=== PATIENT | female | born 1950 | race Caucasian/White ===

== ENCOUNTER 2017-08-14 08:23 | Inpatient (IN) | payer OTHER, MEDICARE ==
[~2017-08-14] VITALS: Ht 152.4 cm; Wt 116.2 kg
[~2017-08-14 08:23] MED LIST: NEURONTIN300 MG PO; TYLENOL #31 TAB PO; VICODIN5-300 PO
--- NOTE | 2017-08-14 08:52 | ED GI/GU/ABDOMINAL COMPLAINT ---
History of Present Illness General Chief Complaint: Abdominal Pain/Flank Pain Stated Complaint: ABD PAIN RADIATING TO BACK Source: patient, old records Exam Limitations: no limitations Vital Signs & Intake/Output Vital Signs & Intake/Output Vital Signs Date Time Temp Pulse Resp B/P B/P Pulse O2 O2 Flow FiO2 Mean Ox Delivery Rate 08/14 1541 98.6 68 18 148/65 93 Room Air 08/14 1437 98.0 69 20 163/75 97 Room Air 08/14 1242 97.8 68 18 150/65 98 Room Air 08/14 1019 98.0 66 18 165/79 98 Room Air 08/14 0828 97.2 73 18 153/90 97 Room Air Allergies Coded Allergies: NO KNOWN ALLERGIES (01/09/12) Reconcile Medications Ascorbic Acid (Vitamin C) 500 MG TABLET 1 TAB PO DAILY SUPPLEMENT (Reported) Aspirin (Ecotrin*) 81 MG TABLET.DR 1 TAB PO DAILY HEART/BLOOD (Reported) Atorvastatin Calcium 10 MG TABLET 0.5 TAB PO DAILY CHOLESTEROL (Reported) Calcium Carbonate/Vitamin D3 (Calcium 500 + D Tablet) (Unknown Strength) TABLET (Unknown Dose) PO DAILY SUPPLEMENT (Reported) Carvedilol 12.5 MG TABLET 1 TAB PO BID HEART/BP (Reported) Furosemide 40 MG TABLET 1 TAB PO BID DIURETIC (Reported) Levothyroxine Sodium (Synthroid) 50 MCG TABLET 1 TAB PO DAILY THYROID ( Reported) Multiple Vitamin (Multivitamins) 1 EACH TABLET 1 TAB PO DAILY SUPPLEMENT ( Reported) Naproxen 375 MG TABLET 1.5 TAB PO DAILY PAIN/INFLAMMATION (Reported) with food [place]-3S/Dha/Epa/Fish Oil (Fish Oil 1,000 MG Softgel) 300 MG (250 MG-50 MG)-1, 000 MG CAPSULE 1 SGL PO DAILY SUPPLEMENT (Reported) Potassium Chloride 20 MEQ TAB.ER.PRT 1 TAB PO BID SUPPLEMENT (Reported) Triage Note: REPORTS SEVERE ABDOMINAL PAIN THAT HAS BEEN WORSENING SINCE THIS PAST TUESDAY. SHE REPORTED THE PAIN BEGINGS ON HER RIGHT FLANK RADIATING TO HER RIGHT ABD/GROIN AREA. DENIED UROLOGICAL SYMPTOMS. Triage Nurses Notes Reviewed? yes ? n Is pt currently ? No Onset: Abrupt Duration: day(s): (3), constant, waxing and waning Timing: recent history Quality/Severity: aching, moderate, sharpness Severity Numbers: 8 Location: left upper quadrant, right upper quadrant Radiation: back No Modifying Factors: none Associated Symptoms: denies HPI: 67-year-old female history of hypertension high cholesterol hypothyroid presents to the ER for evaluation complaining of constant however coming in waves severe bilateral upper quadrant abdominal pain radiating into her back has been going on for the past 3 days while she was on vacation in [place]. Symptoms came on after eating a tuna sandwich. She states she was nauseous and vomited once. She's been having normal bowel movements. She was taking zoni-vhy-bayhcra medications without improvement. Contrary to triage note the pain is bilateral and is not right-sided. She denies urgency frequency dysuria hematuria. No chest pain no shortness of breath Past History Travel History Traveled to [place] past 21 day No Medical History Any Pertinent Medical History? 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 No Review of Systems Review of Systems Constitutional: Reports: see HPI. Comments Review of systems: See HPI, All other systems negative. Constitutional, no chills no fever, HEENT: no sore throat no congestion Cardiovascular: No chest pain , no palpitation Skin: no rashes, no change in skin Respiratory: No dyspnea no cough no sputum GI: nausea vomiting, no diarrhea, no bloating/constipation : No dysuria No hematuria, no frequency Muscle skeletal: No joint pain, no back pain Neurologic: , no headache Heme/endocrine: No bruising Immunology: No lymphadenopathy Physical Exam Physical Exam General Appearance: well developed/nourished, no apparent distress, alert Gastrointestinal: normal bowel sounds, soft, non-tender Comments: Well-developed well-nourished person in no acute distress HEENT: Normal EENT exam; PERRL, EOMI, HEAD is atraumatic. moist mucous membranes. Neck: Supple,normal range of motion Back: Nontender, no CVA tenderness. Full range of motion Cardiovascular: Regular rate and rhythms no murmurs rubs or gallops, normal JVP Respiratory: Chest nontender.There were no bony deformities, no asymmetry. No respiratory distress. Patient speaking in full complete sentences. Breath sounds clear to auscultation bilaterally: NO W/R/R Abdomen: Soft,obese, nontender, negative Jaimes's sign nondistended, no appreciable organomegaly. Normal bowel sounds. No rebound/guarding, No appreciable enlargement of the abdominal aorta, No ascites. Extremity: No edema, full range of motion of extremities Neuro: Alert oriented x3, motor sensory normal, There were no obvious focal neurologic abnormalities. Skin: No appreciable rash on exposed skin, skin is warm and dry. no jaundice,no diaphoresis Psych: Mood and affect is normal, memory and judgment is normal. Core Measures ACS in differential dx? Yes Sepsis Present: No Sepsis Focused Exam Completed? No Progress Differential Diagnosis: appendicitis, biliary colic, bowel obstruction, colon cancer, cholecystitis (/CHOLANGITIS), diverticulitis, gastritis, hepatitis, hernia, inflamm bowel dis, kidney stone, pancreatitis, peptic ulcer, PUD/GERD, perforated viscous Plan of Care: Orders Procedure Date/time Status CBC WITHOUT DIFFERENTIAL 08/15 0600 Active BASIC ELECTROLYTES PLUS BUN&CR 08/15 0600 Active ALKALINE PHOSPHATASE 08/15 0600 Active Nothing by Mouth 08/14 D Active Pathway - chart 08/14 1241 Active Patient Data 08/14 1227 Active Misc Message 08/14 1225 Active ED Holding Orders 08/14 1225 Active Admit to inpatient 08/14 1225 Active Vital Signs 08/14 1225 Active Code Status 08/14 1225 Active EKG 08/14 1213 Active Add-on Test (ER Only) 08/14 1006 Active Intake & Output 08/14 0906 Active LIPID PANEL 08/14 0903 Complete TROPONIN LEVEL 08/14 0859 Complete LIPASE 08/14 0859 Complete COMPREHENSIVE METABOLIC PANEL 08/14 0859 Complete CBC WITHOUT DIFFERENTIAL 08/14 0859 Complete URINALYSIS 08/14 0830 Complete House Staff 08/14 UNK Active VTE Mechanical Prophylaxis 08/14 UNK Active Current Medications Sig/Yoana Start time Last Medication Dose Stop Time Status Admin Enoxaparin Sodium 40 MG DAILY 08/15 0900 AC (Lovenox) Hydromorphone HCl 2 MG Q4P PRN 08/14 1300 AC 08/14 (Dilaudid) 1436 Ketorolac 15 MG Q6-PRN PRN 08/14 1300 AC Tromethamine 08/17 1257 (Toradol) Ondansetron HCl 4 MG Q6P PRN 08/14 1300 AC (Zofran) Lactated Ringer's 1,000 ML .Q4H 08/14 1245 AC 08/14 (Lactated Ringers) 1245 Sodium Chloride 1,000 ML ONCE ONE 08/14 1100 AC 08/14 (Normal Saline 0.9%) 08/14 1739 1116 Laboratory Tests 08/14/17 0903: Anion Gap 12, Estimated GFR > 60, BUN/Creatinine Ratio 28.9 H, Glucose 105 H, Calcium 9.1, Total Bilirubin 1.3, AST 161 H, ALT 137 H, Alkaline Phosphatase 124, Troponin I < 0.01, Total Protein 7.0, Albumin 3.8, Globulin 3.2, Albumin/ Globulin Ratio 1.2, Triglycerides 44, Cholesterol 145, LDL Cholesterol, Calc 61 L, HDL Cholesterol 76 H, Cholesterol/HDL Ratio 2, Lipase > 67677 H, CBC w Diff NO MAN DIFF REQ, RBC 4.80, MCV 82.2, MCH 26.7 L, MCHC 32.5 L, RDW 17.3 H, MPV 9.2, Gran % 74.4, Lymphocytes % 16.8 L, Monocytes % 7.0, Eosinophils % 1.5, Basophils % 0.3, Absolute Granulocytes 7.5 H, Absolute Lymphocytes 1.7, Absolute Monocytes 0.7 H, Absolute Eosinophils 0.1, Absolute Basophils 0 08/14/17 0840: Urinalysis LIGHT H, Urine Color YEL, Urine Clarity HAZY H, Urine pH 5.5, Ur Specific Mcalister >= 1.030, Urine Protein TRACE H, Urine Ketones NEG, Urine Nitrite NEG, Urine Bilirubin NEG@ICTO, Urine Urobilinogen 0.2, Ur Leukocyte Esterase MOD H, Ur Microscopic SEDIMENT EXAMINED, Urine RBC 1-3, Urine WBC 5-10 H, Ur Epithelial Cells MOD H, Urine Bacteria MOD H, Granular Casts RARE H, Urine Hemoglobin TRACE-INTACT, Urine Glucose NEG labs ordered, old records reviewed, pt is declininganything for pain when offered. ct ordered Discussed with patient her CAT scan results she is stating that the pain is coming back Toradol 30 IV IV fluids Zofran 4 IV ordered ultrasound ordered case discussed with Dr. Spangler who agrees with plan 1200 repeat evaluation patient reports improvement in her symptoms pending ultrasound results 1218 discussed with the patient her ultrasound findings and plan of care, needfor admission which they are in agreement with. pain is controlled at this time case discussed with Dr. trent will admit. Diagnostic Imaging: Viewed by Me: CT Scan. Discussed w/RAD: CT Scan. Radiology Impression: PATIENT: ADELINE LOPEZ PRESENT AGE: 67 PATIENT ACCOUNT NO: [id number] : 50 LOCATION: [facility] ORDERING PHYSICIAN: Thierry KAYE SERVICE DATE: 08/14/17 EXAM TYPE: US - US- LIMITED ABDOMEN EXAMINATION: US ABDOMEN LIMITED CLINICAL INFORMATION: Right upper quadrant epigastric abdominal pain. COMPARISON: CT abdomen pelvis 2017 TECHNIQUE: Real-time imaging of the right upper quadrant abdominal viscera. Study limited due to bowel gas. FINDINGS: PANCREAS: Obscured by bowel gas LIVER: The liver is poorly evaluated due to body habitus. No obvious dilatation of intrahepatic bile ducts. GALLBLADDER: The gallbladder is mildly distended measuring approximately 3.8 cm in AP dimension. No gallbladder wall thickening or pericholecystic fluid. No cholelithiasis. COMMON BILE DUCT: Borderline enlarged in caliber measuring 0.7 cm in diameter. RIGHT KIDNEY: Normal. No hydronephrosis. No renal calculi or focal parenchymal lesions. The kidney measures 11.4 cm in maximum dimension. FREE FLUID: None. IMPRESSION: Technically limited examination. The gallbladder is mildly distended without focal wall thickening, pericholecystic fluid or cholelithiasis. Common duct is at the upper limits of normal in size. DICTATED BY: Pedrito Finn MD DATE/TIME DICTATED:1108 BINDERY MANAGER:LAUREN DATE/TIME TRANSCRIBED:08/14/171108 CONFIDENTIAL, DO NOT COPY WITHOUT APPROPRIATE AUTHORIZATION. <Electronically signed in Other Vendor System> SIGNED BY: Pedrito Finn MD 08/14/17 1213, PATIENT: ADELINE LOPEZ PRESENT AGE: 67 PATIENT ACCOUNT NO: [id number] : 50 LOCATION: ER ORDERING PHYSICIAN: Thierry KAYE SERVICE DATE: 08/14/1759 EXAM TYPE: CAT - CT ABD & PELVIS W/O IV CONTRAS EXAMINATION: CT ABDOMEN AND PELVIS WITHOUT CONTRAST CLINICAL INFORMATION : Upper quadrant pain. Nausea, vomiting. COMPARISON: CT chest with contrast 08/2011. TECHNIQUE: Multidetector volumetric imaging was performed from the superior aspect of the liver through the pubic symphysis. Sagittal and coronal reformatted images were obtained on the technologist's workstation. No oral or intravenous contrast. DLP: 1217 mGy-cm FINDINGS: LUNG BASES: The visualized lung bases are unremarkable. LIVER, GALLBLADDER, AND BILIARY TREE: The liver is normal in size, shape, and attenuation. No focal hepatic lesion or biliary ductal dilatation is present. The gallbladder has small layering hyperdensity which may represent fine gravel like calculi or hyperdense sludge. There is no gallbladder wall thickening. Common duct is unremarkable. PANCREAS: There are subtle inflammatory changes in the retroperitoneum around the pancreas with early effusions in the anterior pararenal spaces on both the left and right sides. The pancreatic head appears mildly enlarged. The body and tail are normal in caliber. Parenchymal attenuation is uniform. There is no visible pancreatic ductal distention or loculated fluid. SPLEEN: Unremarkable. ADRENAL GLANDS: Unremarkable. KIDNEYS AND URETERS: The kidneys are normal in size, shape, and attenuation. No hydronephrosis, hydroureter, or calculi seen. No perinephric stranding. BLADDER: Unremarkable. GASTROINTESTINAL TRACT: No bowel obstruction or inflammatory changes in the bowel or mesentery. The appendix is normal. No ascites. ABDOMINAL WALL: No significant hernia is appreciated. LYMPH NODES: Normal. VASCULAR: Unremarkable. PELVIC VISCERA: Unremarkable. OSSEOUS STRUCTURES : Multilevel degenerative changes lower thoracic and lumbosacral spine. Prior lumbosacral fusion with bilateral pedicle screws and rods L4, L5, S1. There is grade 1-2 spondylolisthesis at lumbosacral junction. No paraspinal soft tissue swelling. IMPRESSION: 1. Inflammatory changes in region of pancreas with early retroperitoneal effusions. Findings consistent with pancreatitis. No loculated fluid. 2. Fine gravel like calculi versus hyperdense sludge in dependent gallbladder. No gallbladder wall thickening or biliary ductal dilatation. DICTATED BY: Bobby Osborne MD DATE/TIME DICTATED:08/14/17942 BINDERY MANAGER:LAUREN DATE/TIME TRANSCRIBED:08/14/17942 CONFIDENTIAL, DO NOT COPY WITHOUT APPROPRIATE AUTHORIZATION. <Electronically signed in Other Vendor System> SIGNED BY: Bobby Osborne MD 08/14/17 0957 Initial ED EKG: normal sinus rhythm, nonspecific ST T wave chg Prior EKG: unchanged Departure Departure Time of Disposition: 1217 Disposition: STILL A PATIENT Condition: Stable Clinical Impression Primary Impression: Pancreatitis Referrals: Yumi Morris APRN (PCP/Family) Departure Forms: Customer Survey General Discharge Information Admission Note Spoke With: Quincy Trent MD Documentation of Exam: Documentation of any treatments & extenuating circumstances including Concerns Regarding Discharge (functional status, medication knowledge or non-compliance, living conditions, etc.) that warrant an admission rather than observation: IV fluids gentle hydration trend electrolyte trend lipase premature discharge. Medically harmful, pain control
[2017-08-14 09:13] LABS: ABSOLUTE BASOPHIL COUNT 0 /CUMM (0.0-0.2); ABSOLUTE EOSINOPHIL COUNT 0.1 /CUMM (0.0-0.7); ABSOLUTE GRANULOCYTE CT 7.5 /CUMM (1.4-6.5); ABSOLUTE LYMPH COUNT 1.7 /CUMM (1.2-3.4); ABSOLUTE MONOCYTE COUNT 0.7 /CUMM (0.10-0.60); BASOPHIL % 0.3 % (0.0-2.0); EOSINOPHIL % 1.5 % (0-5); GRANULOCYTE % 74.4 % (42.2-75.2); HEMATOCRIT 39.4 % (37-47); MEAN CORPUSCULAR HGB 26.7 PG (27.0-31.0); MEAN CORPUSCULAR HGB CONC 32.5 G/DL (33.0-37.0); MEAN CORPUSCULAR VOLUME 82.2 FL (81.0-99.0); MEAN PLATELET VOLUME 9.2 FL (7.4-10.4); PLATELET COUNT 236 /CUMM (130-400); RBC DISTRIBUTION WIDTH 17.3 % (11.5-14.5); WHITE BLOOD CELL COUNT 10.1 /CUMM (4.8-10.8)
--- NOTE | 2017-08-14 09:57 | CT SCAN REPORT ---
EXAMINATION: CT ABDOMEN AND PELVIS WITHOUT CONTRAST CLINICAL INFORMATION: Upper quadrant pain. Nausea, vomiting. COMPARISON: CT chest with contrast 01/05/2012. TECHNIQUE: Multidetector volumetric imaging was performed from the superior aspect of the liver through the pubic symphysis. Sagittal and coronal reformatted images were obtained on the technologist's workstation. No oral or intravenous contrast. DLP: 1217 mGy-cm FINDINGS: LUNG BASES: The visualized lung bases are unremarkable. LIVER, GALLBLADDER, AND BILIARY TREE: The liver is normal in size, shape, and attenuation. No focal hepatic lesion or biliary ductal dilatation is present. The gallbladder has small layering hyperdensity which may represent fine gravel like calculi or hyperdense sludge. There is no gallbladder wall thickening. Common duct is unremarkable. PANCREAS: There are subtle inflammatory changes in the retroperitoneum around the pancreas with early effusions in the anterior pararenal spaces on both the left and right sides. The pancreatic head appears mildly enlarged. The body and tail are normal in caliber. Parenchymal attenuation is uniform. There is no visible pancreatic ductal distention or loculated fluid. SPLEEN: Unremarkable. ADRENAL GLANDS: Unremarkable. KIDNEYS AND URETERS: The kidneys are normal in size, shape, and attenuation. No hydronephrosis, hydroureter, or calculi seen. No perinephric stranding. BLADDER: Unremarkable. GASTROINTESTINAL TRACT: No bowel obstruction or inflammatory changes in the bowel or mesentery. The appendix is normal. No ascites. ABDOMINAL WALL: No significant hernia is appreciated. LYMPH NODES: Normal. VASCULAR: Unremarkable. PELVIC VISCERA: Unremarkable. OSSEOUS STRUCTURES: Multilevel degenerative changes lower thoracic and lumbosacral spine. Prior lumbosacral fusion with bilateral pedicle screws and rods L4, L5, S1. There is grade 1-2 spondylolisthesis at lumbosacral junction. No paraspinal soft tissue swelling. IMPRESSION: 1. Inflammatory changes in region of pancreas with early retroperitoneal effusions. Findings consistent with pancreatitis. No loculated fluid. 2. Fine gravel like calculi versus hyperdense sludge in dependent gallbladder. No gallbladder wall thickening or biliary ductal dilatation.
[2017-08-14] MEDS ORDERED: POTASSIUM CHLO20 ME2 PO (12:04)
[2017-08-14] MEDS ORDERED: ATORVASTATIN CA10 M1 PO (12:05)
[2017-08-14] MEDS ORDERED: CARVEDILOL12.5 M1 PO (12:05)
[2017-08-14] MEDS ORDERED: SYNTHROID50 MCG PO (12:05)
[2017-08-14] MEDS ORDERED: FUROSEMIDE40 M1 PO (12:07)
[2017-08-14] MEDS ORDERED: ASPIRIN EC81 M1 PO (12:07)
[2017-08-14] MEDS ORDERED: NAPROXEN375 M2 PO (12:08)
[2017-08-14] MEDS ORDERED: CALCIUM 500 +1 EAC5 PO (12:09)
[2017-08-14] MEDS ORDERED: FISH OIL 1,0001 EAC5 PO (12:09)
[2017-08-14] MEDS ORDERED: MULTIVITAMINS1 EAC9 PO (12:09)
[2017-08-14] MEDS ORDERED: VITAMIN C500 M8 PO (12:09)
--- NOTE | 2017-08-14 12:13 | ULTRASOUND REPORT ---
EXAMINATION: US ABDOMEN LIMITED CLINICAL INFORMATION: Right upper quadrant epigastric abdominal pain. COMPARISON: CT abdomen pelvis 08/14/2017 TECHNIQUE: Real-time imaging of the right upper quadrant abdominal viscera. Study limited due to bowel gas. FINDINGS: PANCREAS: Obscured by bowel gas LIVER: The liver is poorly evaluated due to body habitus. No obvious dilatation of intrahepatic bile ducts. GALLBLADDER: The gallbladder is mildly distended measuring approximately 3.8 cm in AP dimension. No gallbladder wall thickening or pericholecystic fluid. No cholelithiasis. COMMON BILE DUCT: Borderline enlarged in caliber measuring 0.7 cm in diameter. RIGHT KIDNEY: Normal. No hydronephrosis. No renal calculi or focal parenchymal lesions. The kidney measures 11.4 cm in maximum dimension. FREE FLUID: None. IMPRESSION: Technically limited examination. The gallbladder is mildly distended without focal wall thickening, pericholecystic fluid or cholelithiasis. Common duct is at the upper limits of normal in size.
--- NOTE | 2017-08-14 12:38 | History & Physical ---
Ed AYERS,[facility] 08/14/17 1237: General Information and HPI MD Statement: I have seen and personally examined ADELINE LOPEZ and documented this H&P. The patient is a 67 year old F who presented with a patient stated chief complaint of abdominal pain. Source of Information: patient Exam Limitations: no limitations History of Present Illness: This is a 67-year-old lady with a past medical history of hyperlipidemia presents with 3 day onset of progressively worsening abdominal pain. Patient states that her pain started on right upper quadrant and epigastric area, and them radiated to her back on the right side. She denies any similar pain in the past. Associated symptoms include nausea and one episode of vomiting even though her reports he heard the patient vomit more than once. Denied any constipation, diarrhea or bloody stools, fever or chills. Patient reports her symptoms started after having a tuna sandwich. She denies any regular use of etoh and reports she rarely uses etoh and when she does, it is very sparingly. No report of new medication. She states that her hyperlipidemia has been well controlled by atorvastatin. Patient reports that her friend gave her ibuprofen which after taking she experienced moderate relief. Allergies/Medications Allergies: Coded Allergies: NO KNOWN ALLERGIES (01/09/12) Home Med list Ascorbic Acid (Vitamin C) 500 MG TABLET 1 TAB PO DAILY SUPPLEMENT (Reported) Aspirin (Ecotrin*) 81 MG TABLET.DR 1 TAB PO DAILY HEART/BLOOD (Reported) Atorvastatin Calcium 10 MG TABLET 0.5 TAB PO DAILY CHOLESTEROL (Reported) Calcium Carbonate/Vitamin D3 (Calcium 500 + D Tablet) (Unknown Strength) TABLET (Unknown Dose) PO DAILY SUPPLEMENT (Reported) Carvedilol 12.5 MG TABLET 1 TAB PO BID HEART/BP (Reported) Furosemide 40 MG TABLET 1 TAB PO BID DIURETIC (Reported) Levothyroxine Sodium (Synthroid) 50 MCG TABLET 1 TAB PO DAILY THYROID ( Reported) Multiple Vitamin (Multivitamins) 1 EACH TABLET 1 TAB PO DAILY SUPPLEMENT ( Reported) Naproxen 375 MG TABLET 1.5 TAB PO DAILY PAIN/INFLAMMATION (Reported) with food [place]-3S/Dha/Epa/Fish Oil (Fish Oil 1,000 MG Softgel) 300 MG (250 MG-50 MG)-1, 000 MG CAPSULE 1 SGL PO DAILY SUPPLEMENT (Reported) Potassium Chloride 20 MEQ TAB.ER.PRT 1 TAB PO BID SUPPLEMENT (Reported) Past History Travel History Traveled to [place] past 21 day No Medical History Neurological: NONE EENT: NONE Cardiovascular: hypertension, HIGH CHOLESTEROL Respiratory: NONE Gastrointestinal: NONE Hepatic: NONE Renal: NONE Musculoskeletal: NONE Psychiatric: NONE Endocrine: hypothyroidism Blood Disorders: NONE Cancer(s): NONE 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 EENTM: Reports: no symptoms. Cardiovascular: Reports: no symptoms. Respiratory: Reports: no symptoms. GI: Reports: abdominal pain, vomiting. Genitourinary: Reports: no symptoms. Musculoskeletal: Reports: no symptoms. Skin: Reports: no symptoms. Neurological/Psychological: Reports: no symptoms. Hematologic/Endocrine: Reports: no symptoms. Immunologic/Allergic: Reports: no symptoms. All Other Systems: Reviewed and Negative Exam & Diagnostic Data Last 24 Hrs of Vital Signs/I&O Vital Signs Date Time Temp Pulse Resp B/P B/P Pulse O2 O2 Flow FiO2 Mean Ox Delivery Rate 08/14 1600 98.2 68 20 142/88 94 Room Air 08/14 1541 98.6 68 18 148/65 93 Room Air 08/14 1437 98.0 69 20 163/75 97 Room Air 08/14 1242 97.8 68 18 150/65 98 Room Air 08/14 1019 98.0 66 18 165/79 98 Room Air 08/14 0828 97.2 73 18 153/90 97 Room Air Intake & Output 08/14 1600 08/14 0800 08/14 0000 Intake Total 1000 Output Total Balance 1000 Intake, IV 1000 Patient 117.934 kg Weight Weight Reported by Patient Measurement Method Physical Exam General Appearance Alert, Oriented X3, Cooperative Skin No Rashes, No Breakdown, No Significant Lesion Skin Temp/Moisture Exam: Warm/Dry Sepsis Skin Exam (color): Normal for Ethnicity HEENT Atraumatic, PERRLA, EOMI, Mucous Membr. moist/pink Neck Supple, No JVD Lymphatic Cervical nl Cardiovascular Regular Rate, Normal S1, Normal S2 Lungs Clear to Auscultation, Normal Air Movement Abdomen mild tenderness on deep palpation of epigastric and upper right quadrant. no guarding/rigidity or rebounbd tenderness Neurological Normal Gait, Normal Speech, Strength at 5/5 X4 Ext Extremities No Clubbing, No Cyanosis, No Edema Vascular Normal Pulses, Pulses Symmetrical Assessment/Plan Assessment: This is a 67-year-old lady with a past medical history of hyperlipidemia presents with a 3 day acute onset of abdominal pain in the setting of elevated lipase levels and radiological findings of inflammation of the pancreas (non necrotic and no pseudocyts). Impression * Acute onset of abdominal pain. Elevated lipase and CT finding of inflammation surrounding the pancreas is consistent with a diagnosis of acute pancreatitis. The 2 most common causes of pancreatitis in the [place] is gallstones and alcohol. Patient has neither of these 2 risks. Even though she has hyperlipidemia which is also a risk for pancreatitis, lipid panel is not abnormally remarkable. The finding of possible biliary sludge could be significant in the absence of other causes. She is noted to have an elevated BUN of above 20 which is a poor prognostic factor and may increase mortality in pancreatitis patient. * Transaminitis. The elevated ALT of above 150 could be suggestive of gallstone etiology. * History of chronic diseases: Hyperlipidemia Plan Admit to general medicine flow Bowel rest via NPO Lactated Ringer at 250 mls per hour Adequate pain control with ketorolac and morphine for severe pain Zofran 4 mg every 4-6 hours as needed for nausea Hold off all oral medications and if blood pressure heart rate increases will consider metoprolol IV doses as patient is on home carvedilol. DVT PPX: Enoxaparin As Ranked By This Provider Problem List: 1. Pancreatitis Core Measures/Misc (01/16) Acute Coronary Syndrome ACS Diagnosis: No Congestive Heart Failure Congestive Heart Failure Diagnosis No Cerebrovascular Accident CVA/TIA Diagnosis: No VTE (View Protocol) VTE Risk Factors Acute Medical Illness No Mechanical VTE Prophylaxis d/t N/A MechProphylax Ordered No VTE Pharm Prophylaxis d/t NA PharmProphylax ordered Sepsis (View protocol) Sepsis Present: No Quincy Woods MD 08/15/17 1314: Attending MD Review Statement Attending Statement Attending MD Statement: examined this patient, discuss w/resident/PA/DRY STARCH OPERATOR, agreed w/resident/PA/DRY STARCH OPERATOR, reviewed EMR data (avail) Attending Assessment/Plan: 67F PMH HLD with 3 days of intractable epigastric pain radiating to the back with nausea and poor appetite, found to have lipase >10,000, mildly elevated LFTs. No recent new medications or supplements, no EtOH, no prior history. Recently returned from a trip to [place]. She was not stung by any scorpions. Plan: IV hydration, Morphine, advance diet as tolerated.
--- NOTE | 2017-08-14 15:32 | Admission Certification ---
Admission Certification Certification Statement - As attending physician, I certify that at the time of - admission, based on clinical presentation, severity of - symptoms, need for further diagnostic testing and - therapeutic interventions, and risk of adverse outcomes - without in-hospital treatment, in my clinical assessment, - this patient requires an acute hospital stay for a minimum - of two nights or longer. I have also considered psychsocial - factors such as support system, advanced age, financial - issues, cognitive issues, and failed out-patient treatments, - past re-admission history, safety of patient, and lack of - compliance as applicable. Specific rationale supporting this admission is: Acute pancreatitis with severe pain and unable to tolerate PO
[2017-08-14 16:00] VITALS: BP 142/88
[2017-08-14 22:23] VITALS: BP 140/70
[2017-08-15 06:22] VITALS: BP 138/70
--- NOTE | 2017-08-15 07:51 | PN- Housestaff ---
Mike Rowland MD,[facility] 08/15/17 0750: Subjective Follow-up For: Pancreatitis Subjective: Patient visited today, was lying in bed comfortably in no acute distress, was alert and oriented. reported significant improvement in pain and nausea. No fever or chills, no shortness of breathing, no chest pain, no other events. Pain 2/ Will request MRCP for evaluation of gallstone as possible reason for pancreatitis. Right UE swelling, most likely related to IV line. elevation recommended. Review of Systems Constitutional: Reports: see HPI. Objective Last 24 Hrs of Vital Signs/I&O Vital Signs Date Time Temp Pulse Resp B/P B/P Pulse O2 O2 Flow FiO2 Mean Ox Delivery Rate 08/15 0622 98.8 71 20 138/70 92 Room Air 08/14 2223 99.2 75 20 140/70 93 08/14 1600 98.2 68 20 142/88 94 Room Air 08/14 1541 98.6 68 18 148/65 93 Room Air 08/14 1437 98.0 69 20 163/75 97 Room Air 08/14 1242 97.8 68 18 150/65 98 Room Air Intake & Output 08/15 1600 08/15 0800 08/15 0000 Intake Total 1999 1999 Output Total 300 400 Balance 1700 1600 Intake, IV 1999 1999 Intake, Oral 0 Output, Urine 300 400 Patient 256 lb 260 lb Weight Weight Bed scale Reported by Patient Measurement Method Physical Exam General Appearance: Alert, Oriented X3, Cooperative, No Acute Distress Skin: No Significant Lesion Skin Temp/Moisture Exam: Warm/Dry Sepsis Skin Exam (color): Normal for Ethnicity HEENT: Atraumatic, EOMI Cardiovascular: Normal S1, Normal S2 Lungs: Normal Air Movement Abdomen: Soft, Mild tenderness in epigast Neurological: Normal Speech Extremities: Right UE swelling and pain, at IV line side. Current Medications: Current Medications Sig/Yoana Start time Last Medication Dose Route Stop Time Status Admin Enoxaparin Sodium 40 MG DAILY 08/15 0900 AC 08/15 SC 0831 Hydromorphone HCl 0 .STK-MED ONE 08/14 1436 DC PO Hydromorphone HCl 2 MG Q4P PRN 08/14 1300 AC 08/14 PO 1821 Ketorolac 15 MG Q6-PRN PRN 08/14 1300 AC 08/15 Tromethamine IV 08/17 1257 0606 Ketorolac 30 MG ONCE ONE 08/14 1115 DC 08/14 Tromethamine IV 08/14 1116 1116 Ketorolac 0 .STK-MED ONE 08/14 1114 DC Tromethamine .ROUTE Lactated Ringer's 1,000 ML .Q4H 08/14 1245 AC 08/15 IV 0802 Ondansetron HCl 4 MG Q6P PRN 08/14 1300 AC IV Ondansetron HCl 4 MG ONCE ONE 08/14 1115 DC 08/14 IV 08/14 1116 1116 Ondansetron HCl 0 .STK-MED ONE 08/14 1114 DC .ROUTE Sodium Chloride 1,000 ML ONCE ONE 08/14 1100 DC 08/14 IV 08/14 1739 1116 Last 24 Hrs of Lab/Aj Results Last 24 Hrs of Labs/Mics: Laboratory Tests 08/15/17 0728: Anion Gap 10, Estimated GFR > 60, BUN/Creatinine Ratio 20.0, AST 58 H, ALT 81 H, Alkaline Phosphatase 89, CBC w Diff NO MAN DIFF REQ, RBC 4.00 L, MCV 82.2, MCH 27.1, MCHC 33.0, RDW 17.5 H, MPV 9.7, Gran % 65.6, Lymphocytes % 20.8, Monocytes % 9.3, Eosinophils % 4.1, Basophils % 0.2, Absolute Granulocytes 5.4, Absolute Lymphocytes 1.7, Absolute Monocytes 0.8 H, Absolute Eosinophils 0.3, Absolute Basophils 0 Assessment/Plan Assessment: 67-year-old lady, 3d history of abdominal pain PMH: hyperlipidemia, HTN, hypothyroid VS, Ph Ex at admission: insignficant Labs at admission: increased ALT and ALT in ~150, Lipase>[id number] Imagings at admission: Abdominal CT: 1. Inflammatory changes in region of pancreas with early retroperitoneal effusions. Findings consistent with pancreatitis. No loculated fluid. 2. Fine gravel like calculi versus hyperdense sludge in dependent gallbladder. No gallbladder wall thickening or biliary ductal dilatation. Abdominal US: Technically limited examination. The gallbladder is mildly distended without focal wall thickening, pericholecystic fluid or cholelithiasis. Common duct is at the upper limits of normal in size. Patient was admitted to floor for management of following conditions: Pancreatitis: Elevated lipase and CT finding of inflammation surrounding the pancreas was consistent with a diagnosis of acute pancreatitis. The elevated ALT of above 150 could be suggestive of gallstone etiology. - admit to [facility] floor - pain control with Ketorlac - IV hydration with LR - Zofran for nausea - MRCP for evaluation of etiology FC DVT PPX: Enoxaparin Problem List: 1. Pancreatitis Pain Ratin Pain Location: Abdominal Pain Goal: Pain 4 or less Pain Plan: Conitnue current plan Tomorrow's Labs & Rationales: LFT BEP Jordy AYERS,Phillipkassandrateddy 08/15/17 1154: Attending MD Review Statement Attending Statement Attending MD Statement: examined this patient, discuss w/resident/PA/3RD PRESSMAN, agreed w/resident/PA/3RD PRESSMAN, reviewed EMR data (avail), discussed with nursing, discussed with case mgmt, amended to note Attending Assessment/Plan: Patient seen and examined. Resting comfortably not in any acute distress. She reports feeling much better this morning. Reports abdominal pain has resolved. She is not requiring analgesic medication. Denies any nausea vomiting and is eager to advance her diet. Laboratory data shows transaminase levels to be trending downwards. Her pancreatitis is likely secondary to biliary stones. The stones may have passed explaining improvement of her symptoms. She will undergo MRCP today for further evaluation. Recommendations: -Obtain MRCP today. -Postprocedure we will consider advancing to clear liquid diet depending on results. Continue analgesic and Antiemetic therapy as needed. She had a significant drop in her hemoglobin overnight. This is likely dilutional. Repeat CBC this afternoon and again in the morning. Check stool guaiac.
[2017-08-15 09:31] LABS: ABSOLUTE BASOPHIL COUNT 0 /CUMM (0.0-0.2); ABSOLUTE EOSINOPHIL COUNT 0.3 /CUMM (0.0-0.7)
[2017-08-15 10:16] LABS: ABSOLUTE GRANULOCYTE CT 5.4 /CUMM (1.4-6.5); ABSOLUTE LYMPH COUNT 1.7 /CUMM (1.2-3.4); ABSOLUTE MONOCYTE COUNT 0.8 /CUMM (0.10-0.60); BASOPHIL % 0.2 % (0.0-2.0); EOSINOPHIL % 4.1 % (0-5); GRANULOCYTE % 65.6 % (42.2-75.2); MEAN CORPUSCULAR HGB 27.1 PG (27.0-31.0); MEAN CORPUSCULAR VOLUME 82.2 FL (81.0-99.0); MEAN PLATELET VOLUME 9.7 FL (7.4-10.4); PLATELET COUNT 176 /CUMM (130-400); RBC DISTRIBUTION WIDTH 17.5 % (11.5-14.5); WHITE BLOOD CELL COUNT 8.2 /CUMM (4.8-10.8)
[2017-08-15 10:28] LABS: HEMATOCRIT 32.8 % (37-47)
--- NOTE | 2017-08-15 13:51 | Cons- Gastroenterology ---
General Information and HPI Consulting Request Date of Consult: 08/15/17 Requested By: Jordy AYERS,Sukumar Reason for Consult: I was just called by the hospitalist service a few hours ago to assess pancreatitis, HD #2. Source of Information: patient, old records Exam Limitations: no limitations History of Present Illness: 67 y/o female, HTN, HLD, hypoT4, hx colon polyps, obesity, DJD, post R TKR & L- spine fusion, +FHx colon Ca (M- 73; without additional FHx GI Ca, GBD, PUD, IBD, inherited pancreatitis, or inherited liver disease), with intact GB & no previous abdominal surgery, without new meds (albeit on Lasix & Lipitor x yrs ), in [facility] until last week, she was on vacation in [place]. On 08/12/17, the patient ate a tuna fish sandwich. This was followed 1/2 hour later by increased reflux and diffuse, sharp upper abdominal pain B/L, radiating to the mid-back (not to the scapula). There was no definite positional component. This was followed by nausea & vomiting, contents showing partially digested food. There was no hematemesis or melena. The symptoms subsided after a few hours. She did not eat the next day until dinner time, when she had a chicken sandwich at the airport on Tuesday08/14/15, followed by recurrent, sharp upper abdominal pain & bloating, more severe, "10 out of 10". She tried Gas-X and Ibuprofen for her symptoms, but claimed she does not usually take NSAIDS. Her symptoms persisted. She was debating whether to go to the ER, but decided to wait until she came home. She denied any fevers, chills, confusion, CP, SOB, jaundice, light stools, or pruritus. Her urine was slightly darker. She normally denied any FFI. She denied any significant diarrhea, constipation, obstipation, tenesmus, change in stool caliber or rectal bleeding. She denied any rashes or arthralgias, aside from her DJD. Her weight was stable. She denied using any sulfa medications, thiazides, or ACEI. She claimed her TG are usually normal, regarding her HLD. She denied any abdominal trauma, early satiety, preceding GERD, odynophagia, or dysphagia. She denied having any previous EGD. She had 2 previous colonoscopies by [facility]- Dr. Saleh (08/07/01 & 12/01/06)- both reports were purged, but the latter study revealed purely hyperplastic polyps. She claimed her GI care is by Dr. breen in [place], [place], & that her last colonoscopy there in the spring was "normal except for a benign polyp". She was told to return in 5 years (which is now). The patient denied any cigarette smoking or illicit drug use. EtOH use was rare. The patient presented to the [facility] for the above on 08/14/17, at 8: 23 a.m., with the above abdominal pain "8 out of 10", which improved after analgesics. At that point, she claimed some of her symptoms radiated to the right groin. 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 There was no vaginal spotting or discharge. Upon arrival, BP 153/90, P 73, RR 18, T 97.2, O2 sat RA 97%. The GI service was not notified upon admission. She received IV NS, Toradol, & Zofran by the ER. She was admitted to General Medicine. 01/09/12: *Note- normal LFTs. 08/14/17: Admission- WBC 10.1 (74% gran/8 ran Ab), H/H 12.8/39.4, MCV 82.2, RDW 17.3, PLT 236, glucose 105, BUN/Cr 26/0.9, GFR > 60, Na 142, K 3.8, HCO3 28, AG 12, *lipase > 10K, Ca 9.1, albumin 3.8, globulin 3.2, TBil 1.3, alk phos 124, AST 161, ALT 137, TChol 145, *TG 44, HDL 76, LDL 61, troponin < 0.01 (*no coags sent). 08/14/17: U/A- hazy, yellow, > 1.030, 5.5, 1-3 RBC, 5-10 WBC, rare gran cast, mod bact, mod epith, tr Hgb, neg icto, tr prot, 0.2 urobil; neg nitrite, mod esterase 08/15/17: WBC 8.2, H/H 10.8/32.8 (after IVF), PLT 176, bUN/Cr 16/0.8, GFR > 60, Na 139, K 3.6, HCO3 26, AG 10, ? no TBil, alk phos 89, AST 58, ALT 81. 08/14/17: EKG- NSR @ 66, borderline LAD, IRBBB, NSST flattening III & F. 08/14/17: CT ABDOMEN AND PELVIS *WITHOUT IV CONTRAST (*per ER, limiting the study)- 1. Inflammatory changes in region of pancreas with early retroperitoneal effusions. Findings consistent with pancreatitis. No loculated fluid. 2. Fine gravel like calculi versus hyperdense sludge in dependent gallbladder. No gallbladder wall thickening or biliary ductal dilatation. Normal CBD & liver. 3. Multilevel DJD & L-fusion. 08/14/17: US-LIMITED (RUQ) ABDOMEN- Technically limited examination. The gallbladder is mildly distended without focal wall thickening, pericholecystic fluid or cholelithiasis. Common duct is at the upper limits of normal in size (CBD 7 mm - normal for pt's age). Normal right kidney. No ascites. Allergies/Medications Allergies: Coded Allergies: NO KNOWN ALLERGIES (01/09/12) Home Med List: Ascorbic Acid (Vitamin C) 500 MG TABLET 1 TAB PO DAILY SUPPLEMENT (Reported) Aspirin (Ecotrin*) 81 MG TABLET.DR 1 TAB PO DAILY HEART/BLOOD (Reported) Atorvastatin Calcium 10 MG TABLET 0.5 TAB PO DAILY CHOLESTEROL (Reported) Calcium Carbonate/Vitamin D3 (Calcium 500 + D Tablet) (Unknown Strength) TABLET (Unknown Dose) PO DAILY SUPPLEMENT (Reported) Carvedilol 12.5 MG TABLET 1 TAB PO BID HEART/BP (Reported) Furosemide 40 MG TABLET 1 TAB PO BID DIURETIC (Reported) Levothyroxine Sodium (Synthroid) 50 MCG TABLET 1 TAB PO DAILY THYROID ( Reported) Multiple Vitamin (Multivitamins) 1 EACH TABLET 1 TAB PO DAILY SUPPLEMENT ( Reported) Naproxen 375 MG TABLET 1.5 TAB PO DAILY PAIN/INFLAMMATION (Reported) with food [place]-3S/Dha/Epa/Fish Oil (Fish Oil 1,000 MG Softgel) 300 MG (250 MG-50 MG)-1, 000 MG CAPSULE 1 SGL PO DAILY SUPPLEMENT (Reported) Potassium Chloride 20 MEQ TAB.ER.PRT 1 TAB PO BID SUPPLEMENT (Reported) Current Medications: Current Medications Sig/Yoana Start time Last Medication Dose Route Stop Time Status Admin Enoxaparin Sodium 40 MG DAILY 08/15 0900 AC 08/15 SC 0831 Hydromorphone HCl 2 MG Q4P PRN 08/14 1300 AC 08/14 PO 1821 Ketorolac 15 MG Q6-PRN PRN 08/14 1300 AC 08/15 Tromethamine IV 08/17 1257 0606 Lactated Ringer's 1,000 ML .Q4H 08/14 1245 AC 08/15 IV 0802 Lorazepam 0.5 MG ONE ONE 08/15 1445 DC 08/15 IV 08/15 1446 1446 Ondansetron HCl 4 MG Q6P PRN 08/14 1300 AC IV Sodium Chloride 1,000 ML ONCE ONE 08/14 1100 DC 08/14 IV 08/14 1739 1116 Past History Travel History Traveled to [place] past 21 day No Medical History Blood Transfusion Hx: Yes Neurological: NONE EENT: NONE Cardiovascular: hypertension, HIGH CHOLESTEROL Respiratory: NONE Gastrointestinal: NONE Hepatic: NONE Renal: NONE Musculoskeletal: degen joint disease Psychiatric: NONE Endocrine: hypothyroidism, obesity Blood Disorders: NONE Cancer(s): NONE 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 MOTHER, , Age 73; Cause: Colon cancer. Relation not specified for: colon cancer in mother Psychosocial History Where Do You Live? Home Who Do You Live With? spouse Services at Home: None Primary Language: Barbadian Smoking Status: Never Smoked ETOH Use: denies use (xc rare) Illicit Drug Use: denies illicit drug use Living Will? yes Power of Composer Teaching Artist/HCP? no Other Social History: to Gabriel. 1 son & 1 dtr- [employer]. No cigarettes. Rare EtOH. No illicit drugs. 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 Functional Ability ADLs Independent: dressing, eating, toileting, bathing. Ambulation: independent IADLs Independent: shopping, housework, finances, food prep, telephone, transportation , medication admin. 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 Constitutional: Reports: no symptoms. EENTM: Reports: no symptoms. Cardiovascular: Reports: no symptoms. Respiratory: Reports: no symptoms. GI: Reports: abdominal pain, nausea & vomiting. Genitourinary: Reports: no symptoms. Musculoskeletal: Reports: no symptoms. Skin: Reports: no symptoms. Neurological/Psychological: Reports: no symptoms. Hematologic/Endocrine: Reports: no symptoms. Immunologic/Allergic: Reports: no symptoms. All Other Systems: Reviewed and Negative Exam & Diagnostic Data Vital Signs and I&O Vital Signs Date Time Temp Pulse Resp B/P B/P Pulse O2 O2 Flow FiO2 Mean Ox Delivery Rate 08/15 06 98.8 71 20 138/70 92 Room Air 08/14 2223 99.2 75 20 140/70 93 08/14 1600 98.2 68 20 142/88 94 Room Air 08/14 1541 98.6 68 18 148/65 93 Room Air 08/14 1437 98.0 69 20 163/75 97 Room Air Intake & Output 08/15 1600 08/15 0400 08/14 1600 08/14 0400 08/13 1600 08/13 0400 Intake Total 2350 2000 1000 Output Total 500 400 Balance 1850 1600 1000 Intake, IV 2350 2000 1000 Intake, Oral 0 Number 0 Bowel Movements Output, Urine 500 400 Patient 256 lb 260 lb Weight Weight Bed scale Reported by Patient Measurement Method Physical Exam: Well-developed, well-nourished, pleasant, morbidly obese female, non-toxic appearing, in no apparent distress. Sclera anicteric. Conjunctiva pink. Oropharynx clear. Slightly dry mucous membranes. No oral thrush. No aphthous ulcers. There is no adenopathy, thyromegaly, or JVD. No peripheral stigmata of inflammatory bowel disease or chronic liver disease on exam. No spiders on the anterior chest wall. No CVA tenderness. No spine tenderness. Breast & pelvic exams: API. Lungs: clear to A&P, with slight decreased BS at the bases B/L. No wheezing, rales, or rhonchi. No CWT. Heart exam: regular rate rhythm, S1 and S2, with II/ systolic murmur. Abdominal exam: normal bowel sounds, soft belly, obese, mild epigastric tenderness on deep palpation, without guarding or rebound. No mass. No splenomegaly. Liver approximately 14 cm by percussion. Negative Jaimes sign. No fluid shift. No pulsatile mass. No epigastric bruit. Digital rectal exam: deferred by patient ("due for colonoscopy"). Extremities: without cyanosis or clubbing. Trace pedal edema B/L. No palpable cords. + DJD. Post R TKR & L-fusion. No palmar erythema. No Dupuytren's contractures. Distal pulses 2+ bilaterally. DTRs 2+ bilaterally. Alert and oriented x 3. Right handed. CN II-XII intact. Motor 5/5 B/L. Motor 5/5 B/L. A detailed exam for peripheral neuropathy was deferred. No tremor. No asterixis. Results Imaging/Other Studies: 08/14/17: EKG- NSR @ 66, borderline LAD, IRBBB, NSST flattening III & F. 08/14/17: CT ABDOMEN AND PELVIS *WITHOUT IV CONTRAST (*per ER, limiting the study)- 1. Inflammatory changes in region of pancreas with early retroperitoneal effusions. Findings consistent with pancreatitis. No loculated fluid. 2. Fine gravel like calculi versus hyperdense sludge in dependent gallbladder. No gallbladder wall thickening or biliary ductal dilatation. Normal CBD & liver. 3. Multilevel DJD & L-fusion. 08/14/17: US-LIMITED (RUQ) ABDOMEN- Technically limited examination. The gallbladder is mildly distended without focal wall thickening, pericholecystic fluid or cholelithiasis. Common duct is at the upper limits of normal in size (CBD 7 mm - normal for pt's age). Normal right kidney. No ascites. Assessment/Plan Assessment/Recommendations: 67 y/o female, HTN, HLD, hypoT4, hx colon polyps, obesity, DJD, post R TKR & L- spine fusion, +FHx colon Ca (M- 73; without additional FHx GI Ca, GBD, PUD, IBD, inherited pancreatitis, or inherited liver disease), with intact GB & no previous abdominal surgery, without new meds (albeit on Lasix & Lipitor x yrs ), in [facility] [place] [facility] until last week, she was on vacation in [place]. On 08/12/17, the patient ate a tuna fish sandwich. This was followed 1/2 hour later by increased reflux and diffuse, sharp upper abdominal pain B/L, radiating to the mid-back (not to the scapula). There was no definite positional component. This was followed by nausea & vomiting, contents showing partially digested food. There was no hematemesis or melena. The symptoms subsided after a few hours. She did not eat the next day until dinner time, when she had a chicken sandwich at the airport on Tuesday08/14/15, followed by recurrent, sharp upper abdominal pain & bloating, more severe, "10 out of 10". She tried Gas-X and Ibuprofen for her symptoms, but claimed she does not usually take NSAIDS. Her symptoms persisted. She was debating whether to go to the ER, but decided to wait until she came home. She denied any fevers, chills, confusion, CP, SOB, jaundice, light stools, or pruritus. Her urine was slightly darker. She normally denied any FFI. She denied any significant diarrhea, constipation, obstipation, tenesmus, change in stool caliber or rectal bleeding. She denied any rashes or arthralgias, aside from her DJD. Her weight was stable. She denied using any sulfa medications or thiazides. She claimed her TG are usually normal, regarding her HLD. She denied any abdominal trauma, early satiety, preceding GERD, odynophagia, or dysphagia. She denied having any previous EGD. She had 2 previous colonoscopies by [facility]- Dr. Saleh (08/07/01 & 12/01/06)- both reports were purged, but the latter study revealed purely hyperplastic polyps. She claimed her GI care is by Dr. breen in [place], [place], & that her last colonoscopy there in the spring was "normal except for a benign polyp". She was told to return in 5 years (which is now). The patient denied any cigarette smoking or illicit drug use. EtOH use was rare. The patient presented to the [facility] for the above on 08/14/17, at 8: 23 a.m., with the above abdominal pain "8 out of 10", which improved after analgesics. At that point, she claimed some of her symptoms radiated to the right groin. 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 There was no vaginal spotting or discharge. Upon arrival, BP 153/90, P 73, RR 18, T 97.2, O2 sat RA 97%. The GI service was not notified upon admission. She received IV NS, Toradol, & Zofran by the ER. She was admitted to General Medicine. 01/09/12: *Note- normal LFTs. 08/14/17: Admission- WBC 10.1 (74% gran/8 ran Ab), H/H 12.8/39.4, MCV 82.2, RDW 17.3, PLT 236, glucose 105, BUN/Cr 26/0.9, GFR > 60, Na 142, K 3.8, HCO3 28, AG 12, *lipase > 10K, Ca 9.1, albumin 3.8, globulin 3.2, TBil 1.3, alk phos 124, AST 161, ALT 137, TChol 145, *TG 44, HDL 76, LDL 61, troponin < 0.01 (*no coags sent). 08/14/17: U/A- hazy, yellow, > 1.030, 5.5, 1-3 RBC, 5-10 WBC, rare gran cast, mod bact, mod epith, tr Hgb, neg icto, tr prot, 0.2 urobil; neg nitrite, mod esterase 08/15/17: WBC 8.2, H/H 10.8/32.8 (after IVF), PLT 176, bUN/Cr 16/0.8, GFR > 60, Na 139, K 3.6, HCO3 26, AG 10, ? no TBil, alk phos 89, AST 58, ALT 81. 08/14/17: EKG- NSR @ 66, borderline LAD, IRBBB, NSST flattening III & F. 08/14/17: CT ABDOMEN AND PELVIS *WITHOUT IV CONTRAST (*per ER, limiting the study)- 1. Inflammatory changes in region of pancreas with early retroperitoneal effusions. Findings consistent with pancreatitis. No loculated fluid. 2. Fine gravel like calculi versus hyperdense sludge in dependent gallbladder. No gallbladder wall thickening or biliary ductal dilatation. Normal CBD & liver. 3. Multilevel DJD & L-fusion. 08/14/17: US-LIMITED (RUQ) ABDOMEN- Technically limited examination. The gallbladder is mildly distended without focal wall thickening, pericholecystic fluid or cholelithiasis. Common duct is at the upper limits of normal in size (CBD 7 mm - normal for pt's age). Normal right kidney. No ascites. *The patient was admitted 08/14/17 with clinical, laboratory, and CT evidence of pancreatitis. Having stated that, the admission 08/14/17: CT was somewhat limited in assessing the pancreas, *as it was without IV contrast. CT was suggestive of biliary sludge, but no sludge or gallstones were seen on the subsequent RUQ sono. There were no dilated ducts. CBD of 7 mm is normal for the patient's age. On admission, the patient had 1 Grave sign by Dawson criteria (advanced age), but no LDH was sent. She had 2 Grave signs on admission by BiSAP criteria (advanced age & elevated BUN), but no CXR was done to rule out pleural effusions. The patient previously had normal LFTs on 01/09/12, which were the last chemistries in the [employer] computer. I am not certain what her LFTs have been since then. There was a discrepancy between the reading of the admission CT & RUQ ultrasound, in terms of possible biliary sludge. She may have some underlying FFI. Rule out gallstone pancreatitis. Her LFTs (transaminases) were improving as of 08/14/17, however a TBil was not repeated (normal TBil on admission). She denied any cigarettes or EtOH. She was on no medications to account for the above. I doubt that the Lipitor or Lasix are contributing to the pancreatitis, as she had been on these for years. Her TG were normal. There was no history of trauma. Other possibilities to consider could be IPMN/lesion, autoimmune pancreatitis, and/or pancreas divisum (the latter of which is a debatable entity in terms of it's cause & effect relationship with pancreatitis, as it is present in 1% of autopsies). Doubt penetrating ulcer. Her H/H & BUN have decreased appropriately after IVF, which is encouraging, going against hemoconcentration, which would be a poor prognostic sign. *SUGGEST- NPO for now. *MRCP today. IV Ringers Lactate @ 250 cc/hr for now. Strict I/O's. Narcotic analgesics as needed. Zofran as needed. *No NSAIDs (stop Toradol). DVT prophylaxis. Serial LFTs (including TBil), CBC, lytes, GFR. Watch for hemoconcentration. *Consider checking IgG4 level. *CXR (r/o pleural effusion). * Add LDH to admit labs. *Check CRP for prognostic purposes. *Consider checking full Hep A, B, & C serologies, ROCÍO, AMA, Fe, TIBC, ferritin, PT with INR (? baseline LFTs). Mobilize patient as tolerated. Follow-up with medical team regarding abnormal urinary sediment. Further GI suggestions (i.e.- ? ERCP, ? surgical consult for [facility]) will be dependent on MRCP findings & clinical course. As an aside, the patient is due for a follow-up outpt surveillance colonoscopy ( hx colon polyps, +FHx colon Ca-M) with her usual GI MD, Dr. Breen, who can also consider EUS of the pancreas, if the above workup is unrevealing. Problem List: 1. Pancreatitis 2. Abdominal pain 3. Nausea & vomiting 4. Hyperlipemia 5. Elevated LFTs 6. History of colon polyps 7. Family history of colon cancer in mother Copies To: Jordy AYERS,Hamida Hamilton MD, DO; Wan AYERS,Jasmeet Connell; Yumi Morris APRN. Consult Acknowledgment - Thank you for your consult request.
[2017-08-15 15:02] VITALS: BP 160/80
--- NOTE | 2017-08-15 17:02 | MRI REPORT ---
EXAMINATION: MR ABDOMEN WITHOUT CONTRAST/MRCP CLINICAL INFORMATION: Pancreatitis. A OT increased. Evaluation for pancreatitis etiology, gallstone. COMPARISON: Ultrasound of the right upper quadrant dated 08/14/2017. CT scan of the abdomen and pelvis dated 08/14/2017. TECHNIQUE: An MRI scan of the abdomen was performed using multiple imaging sequences and imaging planes. As per the MRCP protocol, heavily T2-weighted 3-D high-resolution MRCP sequences were obtained in the coronal plane along with thin and thick slab coronal images and coronal MIP reconstructions obtained on the technologist workstation under concurrent physician supervision. FINDINGS: LIVER: Asymmetric elevation of the right hemidiaphragm is seen, unchanged from prior CT scan. The liver is normal in size and signal. No hepatic steatosis is seen. No focal cystic or solid mass is present. GALLBLADDER/BILIARY TREE: The gallbladder is mildly hydropic, measuring 4.4 cm in transverse diameter. There is a small amount of ascites seen in the upper abdomen, which also extends around the gallbladder. Small amount of dependent debris or gravel is again noted in the gallbladder. No intra-or extrahepatic ductal dilatation is seen. Common bile duct is at the upper limits of normal, measuring 0.7 cm. PANCREAS: The pancreas is normal in appearance. No ductal dilatation or mass is seen. There is trace amount of peripancreatic stranding and edema and a small amount of ascites is seen extending around the liver, gallbladder, and spleen and into the lateral conal fascia bilaterally as well as the perirenal fat. Findings are consistent with the clinical history of hepatitis. No focal drainable collection is seen. No variant ductal anatomy is noted. SPLEEN: Normal size and appearance. ADRENAL GLANDS AND KIDNEYS: Adrenal glands normal. Kidneys bilaterally symmetric in size and function. No focal mass or hydronephrosis. Mild perinephric stranding and edema. BOWEL LOOPS: Grossly within normal limits. LYMPHOVASCULAR STRUCTURES: Abdominal aorta normal in caliber. No periaortic collections. No abdominal adenopathy or free fluid collection. BONES: There is advanced degenerative change throughout the lumbar spine and posterior spinal fusion hardware is noted along with associated dephasing artifact at the L4-L5 and L5-S1 levels. IMPRESSION: 1. Findings are consistent with pancreatitis with small amount of free fluid seen surrounding the pancreas and extending throughout the upper abdomen as discussed above. No variant pancreatic ductal anatomy is seen. The common bile duct is at the upper limits of normal (0.7 cm) in size and no evidence of choledocholithiasis is seen. 2. Small amount of dependent debris or gravel is seen within the gallbladder, which is mildly hydropic. No gallbladder wall thickening is seen. The pericholecystic fluid is nonspecific and most likely related to the pancreatitis. Clinical correlation requested.
[2017-08-15 23:37] VITALS: BP 168/78
[2017-08-16 06:24] VITALS: BP 144/88
--- NOTE | 2017-08-16 08:00 | PN- Housestaff ---
Mike Rowland MD,[facility] 08/16/17 0759: Subjective Follow-up For: Pancreatitis Subjective: Patient visited today, was sitting at bedside comfortably in no acute distress, was alert and oriented. reported significant improvement in pain and nausea. No fever or chills, no shortness of breathing, no chest pain, no other events. Pain controlled MRCP showed only pancreatitis. Patient was kept NPO per GI for endoscopy. decreased amount of IV fluids, hand swelling present in left side, recommended elevation. Will follow HB. Review of Systems Constitutional: Reports: see HPI. Objective Last 24 Hrs of Vital Signs/I&O Vital Signs Date Time Temp Pulse Resp B/P B/P Pulse O2 O2 Flow FiO2 Mean Ox Delivery Rate 08/16 0624 98.6 75 20 144/88 94 Room Air 08/15 2337 98.1 76 20 168/78 96 Room Air 08/15 1502 98.5 72 20 160/80 95 Intake & Output 08/16 1600 08/16 0800 08/16 0000 Intake Total 1200 1200 Output Total 400 400 Balance 800 800 Intake, IV 1200 1200 Output, Urine 400 400 Physical Exam General Appearance: Alert, Oriented X3, Cooperative, No Acute Distress Skin: No Significant Lesion Skin Temp/Moisture Exam: Warm/Dry Sepsis Skin Exam (color): Normal for Ethnicity HEENT: Atraumatic, EOMI Cardiovascular: Normal S1, Normal S2 Lungs: Clear to Auscultation Abdomen: Soft, mild epigastric tenderness Extremities: swelling of UE Current Medications: Current Medications Sig/Yoana Start time Last Medication Dose Route Stop Time Status Admin Enoxaparin Sodium 40 MG DAILY 08/15 0900 AC 08/15 SC 0831 Hydromorphone HCl 2 MG Q4P PRN 08/14 1300 AC 08/14 PO 1821 Ketorolac 15 MG Q6-PRN PRN 08/14 1300 DC 08/16 Tromethamine IV 08/17 1257 0251 Lactated Ringer's 1,000 ML .[id number] 08/14 1245 AC 08/16 IV 0556 Lorazepam 0.5 MG ONE ONE 08/15 1445 DC 08/15 IV 08/15 1446 1446 Ondansetron HCl 4 MG Q6P PRN 08/14 1300 AC IV Last 24 Hrs of Lab/Aj Results Last 24 Hrs of Labs/Mics: Laboratory Tests 08/16/17 0740: Anion Gap 10, Estimated GFR > 60, BUN/Creatinine Ratio 18.3, Total Bilirubin 1.0 , Direct Bilirubin 0.3, AST 37 H, ALT 62 H, Alkaline Phosphatase 93, Total Protein 5.9 L, Albumin 2.9 L, PT 13.2 H, INR 1.21 H, ROCÍO Titer Pending, Anti -Nuclear Antibody Pending Assessment/Plan Assessment: 67-year-old lady, 3d history of abdominal pain PMH: hyperlipidemia, HTN, hypothyroid VS, Ph Ex at admission: insignficant Labs at admission: increased ALT and ALT in ~150, Lipase>[id number] Imagings at admission: Abdominal CT: 1. Inflammatory changes in region of pancreas with early retroperitoneal effusions. Findings consistent with pancreatitis. No loculated fluid. 2. Fine gravel like calculi versus hyperdense sludge in dependent gallbladder. No gallbladder wall thickening or biliary ductal dilatation. Abdominal US: Technically limited examination. The gallbladder is mildly distended without focal wall thickening, pericholecystic fluid or cholelithiasis. Common duct is at the upper limits of normal in size. Patient was admitted to floor for management of following conditions: Pancreatitis: Elevated lipase and CT finding of inflammation surrounding the pancreas was consistent with a diagnosis of acute pancreatitis. The elevated ALT of above 150 could be suggestive of gallstone etiology. MRCP was done: 1. Findings are consistent with pancreatitis with small amount of free fluid seen surrounding the pancreas and extending throughout the upper abdomen as discussed above. No variant pancreatic ductal anatomy is seen. The common bile duct is at the upper limits of normal (0.7 cm) in size and no evidence of choledocholithiasis is seen. 2. Small amount of dependent debris or gravel is seen within the gallbladder, which is mildly hydropic. No gallbladder wall thickening is seen. The pericholecystic fluid is nonspecific and most likely related to the pancreatitis. Clinical correlation requested. - admit to floor - pain control with Ketorlac - IV hydration with LR - Zofran for nausea - KEEP Npo - ERCP later today FC DVT PPX: Enoxaparin Problem List: 1. Pancreatitis Pain Ratin Pain Location: abdominal Pain Goal: Pain 4 or less Pain Plan: Continue current plan Tomorrow's Labs & Rationales: CBC BEP LFT Jordy AYERS,Sukumar 08/16/17 1121: Attending MD Review Statement Attending Statement Attending MD Statement: examined this patient, discuss w/resident/PA/WEB ENGINEER, agreed w/resident/PA/WEB ENGINEER, reviewed EMR data (avail), discussed with nursing, discussed with case mgmt, amended to note Attending Assessment/Plan: Patient seen and examined. Resting comfortably not in any acute distress. No issues overnight. Denies any vomiting. Denies any abdominal pain. She denies any cough or shortness of breath. She is maintaining saturation on room air. On auscultation she has adequate entry bilaterally with no added sounds particularly. Chest x-ray was recommended to rule out pleural effusion. On clinical exam she has no suggestion that she has pleural effusion present. Chest x-ray was done this morning and shows no significant pleural effusion. He did show mild subsegmental atelectasis and crowding of bronchovascular markings. MRCP done yesterday shows small amount of dependent debris or gravel within the gallbladder. There is no gallbladder wall thickening seen. The pericholecystic fluid noted is been attributed to her pancreatitis. She does have findings consistent with pancreatitis with small free fluid surrounding the pancreas and upper abdomen. There is no evidence of choledocholithiasis. Problems: 1. Pancreatitis 2. Transaminitis 3. Anemia 4. Abnormal UA Plan: -Awaiting follow-up evaluation by the gastroenterology service following her MRCP yesterday. Please follow-up directly with the gastroenterology service. -Her transaminitis is trending down. Follow-up recommendations by the gastroenterology service to check viral hepatitis panel. -Her anemia may be secondary to hemodilution following aggressive hydration. Follow-up repeat CBCs this morning. Check stool guaiac. If she continues to be anemic recommend obtaining a anemia workup with iron level, TIBC, ferritin, B12 and folic acid levels. -Pain control with IV Dilaudid as needed. She is currently pain-free. -Resume her Synthroid and Coreg. Resume her Lasix at the time of discharge. -Patient currently denies any urinary complaints. Repeat urinalysis.
--- NOTE | 2017-08-16 08:32 | RADIOLOGY REPORT ---
EXAMINATION: XR PORTABLE CHEST CLINICAL INFORMATION: Pancreatitis. Rule out pleural effusion. COMPARISON: CT scan of the abdomen and pelvis dated 08/14/2017. Chest x-ray dated 01/05/2012. CT scan of the chest dated 01/05/2012. TECHNIQUE: Portable AP semierect view of the chest was obtained. FINDINGS: The cardiomediastinal silhouette is within normal limits in size. Slight density in the retrocardiac left lung base is seen, likely due to a combination of aortic ectasia and small hiatal hernia demonstrated on prior CT scans. There is chronic elevation of the right hemidiaphragm with associated mild subsegmental atelectasis and crowding of bronchovascular markings in the right lung base, similar to the previous exam. No definite pleural effusion or pneumothorax is seen. There is a mild convex right thoracic scoliosis with mild vertebral spondylosis. IMPRESSION: 1. Chronic elevation of right hemidiaphragm with associated mild subsegmental atelectasis/crowding of bronchovascular markings in the right lung base. 2. No significant pleural effusion seen.
[2017-08-16 09:25] LABS: PT 13.2 SEC (9.4-12.5)
--- NOTE | 2017-08-16 11:07 | Discharge Summary ---
Visit Information Visit Dates Admission Date: 08/14/17 Hospital Course Course Attending Physician: Sukumar Spence MD Primary Care Physician: Yumi Morris APRN Hospital Course: 67-year-old lady, 3d history of abdominal pain PMH: hyperlipidemia, HTN, hypothyroid VS, Ph Ex at admission: insignficant Labs at admission: increased ALT and ALT in ~150, Lipase>[id number] Imagings at admission: Abdominal CT: 1. Inflammatory changes in region of pancreas with early retroperitoneal effusions. Findings consistent with pancreatitis. No loculated fluid. 2. Fine gravel like calculi versus hyperdense sludge in dependent gallbladder. No gallbladder wall thickening or biliary ductal dilatation. Abdominal US was done: Technically limited examination. The gallbladder is mildly distended without focal wall thickening, pericholecystic fluid or cholelithiasis. Common duct is at the upper limits of normal in size. Patient was admitted to floor for management of following conditions: Pancreatitis secondary to gallstone: Elevated lipase and CT finding of inflammation surrounding the pancreas was consistent with a diagnosis of acute pancreatitis. The elevated ALT of above 150 could be suggestive of gallstone etiology. MRCP was done: 1. Findings are consistent with pancreatitis with small amount of free fluid seen surrounding the pancreas and extending throughout the upper abdomen as discussed above. No variant pancreatic ductal anatomy is seen. The common bile duct is at the upper limits of normal (0.7 cm) in size and no evidence of choledocholithiasis is seen. 2. Small amount of dependent debris or gravel is seen within the gallbladder, which is mildly hydropic. No gallbladder wall thickening is seen. The pericholecystic fluid is nonspecific and most likely related to the pancreatitis. Clinical correlation requested. GI and Surgery as per the specialists were consulted. It was decided that patient needed to undergo lap cholecyctectom. Patient went under surgey on 08/17/17. Pain was controlled, patient tolerated diet. Patient was stable to be discharged with recommendations below. Anemia, Iron deficiency Iron supplements were administered with recommendations to follow in outpatient with PCP to distinguish the etiology. Chronic medical conditions: we continued home medications Patient was discharged with recommendations below Allergies: Coded Allergies: NO KNOWN ALLERGIES (01/09/12) Significant Procedures: Laparoscopic cholecystectomy Disposition Summary Disposition Principal Diagnosis: Pancreatitis secondary to gallstone Additional Diagnosis: Anemia, Iron deficiency Discharge Disposition: home or self care Discharge Instructions General Discharge Information Code Status: Full Code Patient's Diet: low fat, heart healthy Patient's Activity: as tolerated Follow-Up Instructions/Appts: Please follow with your PCP after discharge. Please also disscuss the next steps for anemia work up. Please follow with your surgeon regarding your surgical procedure in one week. Please follow with your truckload checker within one week of discharge regarding pancreatitis. Please take your medications as ordered. You can take tynelol for pain. Medications at Discharge Discharge Medications: Continue taking these medications: Potassium Chloride (Potassium Chloride) 20 MEQ TAB.ER.PRT 1 Tablet ORAL TWICE DAILY Qty = 180 Comments: NOT GIVEN IN HOSPITAL Levothyroxine Sodium (Synthroid) 50 MCG TABLET 1 Tablet ORAL DAILY Qty = 90 Comments: Last Taken: 08/18/17 Time: 5:00 AM Carvedilol (Carvedilol) 12.5 MG TABLET 1 Tablet ORAL TWICE DAILY Qty = 180 Comments: Last Taken: 08/18/17 Time: 9:00 AM Atorvastatin Calcium (Atorvastatin Calcium) 10 MG TABLET 0.5 Tablet ORAL DAILY Qty = 90 Comments: NOT GIVEN IN HOSPITAL Aspirin (Ecotrin*) 81 MG TABLET.DR 1 Tablet ORAL DAILY Comments: NOT GIVEN IN HOSPITAL Furosemide (Furosemide) 40 MG TABLET 1 Tablet ORAL TWICE DAILY Qty = 180 Instructions: NOT GIVEN IN HOSPITAL Naproxen (Naproxen) 375 MG TABLET 1.5 Tablet ORAL DAILY Qty = 60 Instructions: with food Comments: NOT GIVEN IN HOSPITAL Calcium Carbonate/Vitamin D3 (Calcium 500 + D Tablet) (Unknown Strength) TABLET Unknown Dose ORAL DAILY Comments: NOT GIVEN IN HOSPITAL Ascorbic Acid (Vitamin C) 500 MG TABLET 1 Tablet ORAL DAILY Comments: NOT GIVEN IN HOSPITAL Multiple Vitamin (Multivitamins) 1 EACH TABLET 1 Tablet ORAL DAILY Comments: NOT GIVEN IN HOSPITAL [place]-3S/Dha/Epa/Fish Oil (Fish Oil 1,000 MG Softgel) 300 MG (250 MG-50 MG)-1, 000 MG CAPSULE 1 SGL ORAL DAILY Comments: NOT GIVEN IN HOSPITAL Start taking the following new medications: Ferrous Sulfate (Ferrous Sulfate) 325 MG (65 MG IRON) TABLET 1 Tablet ORAL TWICE DAILY Qty = 60 No Refills Instructions: . Comments: NOT GIVEN IN HOSPITAL Copies To: Yumi Morris APRN; Darnell AYERS,Rc Larson Attending MD Review Statement Documenting Attending: Sukumar Spence MD Other Findings: Discharged in stable condition.
[2017-08-16 14:34] VITALS: BP 130/80
[2017-08-16 19:50] LABS: ABSOLUTE BASOPHIL COUNT 0 /CUMM (0.0-0.2); ABSOLUTE EOSINOPHIL COUNT 0.3 /CUMM (0.0-0.7); ABSOLUTE GRANULOCYTE CT 5.7 /CUMM (1.4-6.5); ABSOLUTE LYMPH COUNT 1.6 /CUMM (1.2-3.4); ABSOLUTE MONOCYTE COUNT 0.9 /CUMM (0.10-0.60); BASOPHIL % 0.3 % (0.0-2.0); EOSINOPHIL % 3.3 % (0-5); GRANULOCYTE % 66.8 % (42.2-75.2); HEMATOCRIT 33.1 % (37-47); MEAN CORPUSCULAR HGB 26.4 PG (27.0-31.0); MEAN CORPUSCULAR HGB CONC 32.2 G/DL (33.0-37.0); PLATELET COUNT 187 /CUMM (130-400); RBC DISTRIBUTION WIDTH 16.9 % (11.5-14.5); RED BLOOD CELL CT 4.04 /CUMM (4.20-5.40); WHITE BLOOD CELL COUNT 8.6 /CUMM (4.8-10.8)
--- NOTE | 2017-08-16 21:24 | PN- Gastroenterology ---
Assessment/Plan GI Assessment/Recommendations: 67 y/o female, HTN, HLD, hypoT4, hx colon polyps, obesity, DJD, post R TKR & L- spine fusion, +FHx colon Ca (M- 73; without additional FHx GI Ca, GBD, PUD, IBD, inherited pancreatitis, or inherited liver disease), with intact GB & no previous abdominal surgery, without new meds (albeit on Lasix & Lipitor x yrs ), in [facility] until last week, she was on vacation in [place]. On 08/12/17, the patient ate a tuna fish sandwich. This was followed 1/2 hour later by increased reflux and diffuse, sharp upper abdominal pain B/L, radiating to the mid-back (not to the scapula). There was no definite positional component. This was followed by nausea & vomiting, contents showing partially digested food. There was no hematemesis or melena. The symptoms subsided after a few hours. She did not eat the next day until dinner time, when she had a chicken sandwich at the airport on Tuesday08/14/15, followed by recurrent, sharp upper abdominal pain & bloating, more severe, "10 out of 10". She tried Gas-X and Ibuprofen for her symptoms, but claimed she does not usually take NSAIDS. Her symptoms persisted. She was debating whether to go to the ER, but decided to wait until she came home. She denied any fevers, chills, confusion, CP, SOB, jaundice, light stools, or pruritus. Her urine was slightly darker. She normally denied any FFI. She denied any significant diarrhea, constipation, obstipation, tenesmus, change in stool caliber or rectal bleeding. She denied any rashes or arthralgias, aside from her DJD. Her weight was stable. She denied using any sulfa medications or thiazides. She claimed her TG are usually normal, regarding her HLD. She denied any abdominal trauma, early satiety, preceding GERD, odynophagia, or dysphagia. She denied having any previous EGD. She had 2 previous colonoscopies by [facility]- Dr. Saleh (08/07/01 & 12/01/06)- both reports were purged, but the latter study revealed purely hyperplastic polyps. She claimed her GI care is by Dr. breen in [place], [place], & that her last colonoscopy there in the spring was "normal except for a benign polyp". She was told to return in 5 years (which is now). The patient denied any cigarette smoking or illicit drug use. EtOH use was rare. The patient presented to the [place] ER for the above on 08/14/17, at 8: 23 a.m., with the above abdominal pain "8 out of 10", which improved after analgesics. At that point, she claimed some of her symptoms radiated to the right groin. 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 There was no vaginal spotting or discharge. Upon arrival, BP 153/90, P 73, RR 18, T 97.2, O2 sat RA 97%. The GI service was not notified upon admission. She received IV NS, Toradol, & Zofran by the ER. She was admitted to General Medicine. 01/09/12: *Note- normal LFTs. 08/14/17: Admission- WBC 10.1 (74% gran/8 ran Ab), H/H 12.8/39.4, MCV 82.2, RDW 17.3, PLT 236, glucose 105, BUN/Cr 26/0.9, GFR > 60, Na 142, K 3.8, HCO3 28, AG 12, *lipase > 10K, Ca 9.1, albumin 3.8, globulin 3.2, TBil 1.3, alk phos 124, AST 161, ALT 137, TChol 145, *TG 44, HDL 76, LDL 61, troponin < 0.01 (*no coags sent). 08/14/17: U/A- hazy, yellow, > 1.030, 5.5, 1-3 RBC, 5-10 WBC, rare gran cast, mod bact, mod epith, tr Hgb, neg icto, tr prot, 0.2 urobil; neg nitrite, mod esterase 08/15/17: WBC 8.2, H/H 10.8/32.8 (after IVF), PLT 176, bUN/Cr 16/0.8, GFR > 60, Na 139, K 3.6, HCO3 26, AG 10, ? no TBil, alk phos 89, AST 58, ALT 81. 08/14/17: EKG- NSR @ 66, borderline LAD, IRBBB, NSST flattening III & F. 08/14/17: CT ABDOMEN AND PELVIS *WITHOUT IV CONTRAST (*per ER, limiting the study)- 1. Inflammatory changes in region of pancreas with early retroperitoneal effusions. Findings consistent with pancreatitis. No loculated fluid. 2. Fine gravel like calculi versus hyperdense sludge in dependent gallbladder. No gallbladder wall thickening or biliary ductal dilatation. Normal CBD & liver. 3. Multilevel DJD & L-fusion. 08/14/17: US-LIMITED (RUQ) ABDOMEN- Technically limited examination. The gallbladder is mildly distended without focal wall thickening, pericholecystic fluid or cholelithiasis. Common duct is at the upper limits of normal in size (CBD 7 mm - normal for pt's age). Normal right kidney. No ascites. *The patient was admitted 08/14/17 with clinical, laboratory, and CT evidence of pancreatitis. Having stated that, the admission 08/14/17: CT was somewhat limited in assessing the pancreas, *as it was without IV contrast. CT was suggestive of biliary sludge, but no sludge or gallstones were seen on the subsequent RUQ sono. There were no dilated ducts. CBD of 7 mm is normal for the patient's age. On admission, the patient had 1 Grave sign by Rosa criteria (advanced age), but no LDH was sent. She had 2 Grave signs on admission by BiSAP criteria (advanced age & elevated BUN), but no CXR was done to rule out pleural effusions. The patient previously had normal LFTs on 01/09/12, which were the last chemistries in the [place] [email or web address]. I am not certain what her LFTs have been since then. There was a discrepancy between the reading of the admission CT & RUQ ultrasound, in terms of possible biliary sludge. She may have some underlying FFI. Rule out gallstone pancreatitis. Her LFTs (transaminases) were improving as of 08/14/17, however a TBil was not repeated (normal TBil on admission). She denied any cigarettes or EtOH. She was on no medications to account for the above. I doubt that the Lipitor or Lasix were contributing to the pancreatitis, as she had been on these for years. Her TG were normal. There was no history of trauma. Other possibilities to consider could be IPMN/lesion, autoimmune pancreatitis, and/or pancreas divisum (the latter of which is a debatable entity in terms of it's cause & effect relationship with pancreatitis, as it is present in 1% of autopsies). Doubt penetrating ulcer. Her H/H & BUN have decreased appropriately after IVF, which is encouraging, going against hemoconcentration, which would be a poor prognostic sign. 08/15/17: MR ABDOMEN WITHOUT CONTRAST/MRCP- 1. Findings are consistent with pancreatitis with small amount of free fluid seen surrounding the pancreas and extending throughout the upper abdomen as discussed above. No variant pancreatic ductal anatomy is seen. The common bile duct is at the upper limits of normal (0.7 cm) in size and no evidence of choledocholithiasis is seen. 2. Small amount of dependent debris or gravel is seen within the gallbladder, which is mildly hydropic. No gallbladder wall thickening is seen. The pericholecystic fluid is nonspecific and most likely related to the pancreatitis. Clinical correlation requested. 08/16/17: XRY-PORTABLE CHEST XRAY- 1. Chronic elevation of right hemidiaphragm with associated mild subsegmental atelectasis/crowding of bronchovascular markings in the right lung base. 2. No significant pleural effusion seen. *I had returned to see the patient the p.m. of 08/15/17, to review the MRCP with her. The CBD was 7 mm (normal for pt's age) & clean, without choledocholithiasis. The gallbladder did show some sludge. There was no cholecystitis. At that point, I spoke with the patient's RN, who was advised to contact the business intern to arrange for a surgical consultation to consider CCKY. *For some reason, I found that on 08/16/17 that this never transpired. *I personally spoke with Dr. Spence, the medical house staff, & the surgical PA the p.m. of , to facilitate this. 08/15/17: LDH 525, *CRP > 9.0, Fe 26, TIBC 286, Fe sat 9.1%, ferritin 64.5, 08/16/17: WBC 8.6, H/H 10.7/33.1, PLT 187, PT 13.2, INR 1.21, BUN/Cr 11/0.6, GFR > 60, Na 139, K 3.6, HCO3 23, AG 10, allbumin 2.9, globulin 3.0, TBil 1.0, alk phos 93, AST 37, ALT 62 08/16/17: *ROCÍO, AMA- pending (? Hep serologies never sent). *As of 08/16/17, the patient remained hemodynamically stable & afebrile, with O2 sat RA 97%. She had some recurrent epigastric pain "2 out of 10" & some nausea without vomiting, after eating jello. She had only requiring small amounts of Dilaudid. She denied any fevers, chills, jaundice, chest pain, or shortness of breath. Her IV Ringers lactate was decreased to 75 cc/hr. There was no laboratory evidence of hemoconcentration. Her transaminases were resolving. *SUGGEST- Switch clears to NPO after midnight. *Surgical consult to consider CCKY. IV Ringers Lactate @ 75 cc/hr for now. Strict I/O's. Narcotic analgesics as needed. Zofran as needed. *No NSAIDs (Toradol D/C'd). DVT prophylaxis. Serial LFTs ( including TBil), CBC, lytes, GFR. Watch for hemoconcn. *Consider checking IgG4 level. *Consider checking full Hep A, B, & C serologies (? baseline LFTs). Await 08/16/17:*ROCÍO & AMA. Mobilize patient as tolerated. Follow-up with medical team regarding abnormal urinary sediment. Further GI suggestions will be dependent on clinical course. As an aside, the patient is due for a follow-up outpt surveillance colonoscopy (hx colon polyps, +FHx colon Ca-M) with her usual GI MD, Dr. Breen, who can also consider EUS of the pancreas, if the above workup is unrevealing. Problem List: 1. Pancreatitis 2. Abdominal pain 3. Nausea & vomiting 4. Hyperlipemia 5. Elevated LFTs 6. History of colon polyps 7. Family history of colon cancer in mother Subjective Subjective: 08/15/17: MR ABDOMEN WITHOUT CONTRAST/MRCP- 1. Findings are consistent with pancreatitis with small amount of free fluid seen surrounding the pancreas and extending throughout the upper abdomen as discussed above. No variant pancreatic ductal anatomy is seen. The common bile duct is at the upper limits of normal (0.7 cm) in size and no evidence of choledocholithiasis is seen. 2. Small amount of dependent debris or gravel is seen within the gallbladder, which is mildly hydropic. No gallbladder wall thickening is seen. The pericholecystic fluid is nonspecific and most likely related to the pancreatitis. Clinical correlation requested. 08/16/17: XRY-PORTABLE CHEST XRAY- 1. Chronic elevation of right hemidiaphragm with associated mild subsegmental atelectasis/crowding of bronchovascular markings in the right lung base. 2. No significant pleural effusion seen. *I had returned to see the patient the p.m. of 08/15/17, to review the MRCP with her. The CBD was 7 mm (normal for pt's age) & clean, without choledocholithiasis. The gallbladder did show some sludge. There was no cholecystitis. At that point, I spoke with the patient's RN, who was advised to contact the business intern to arrange for a surgical consultation to consider CCKY. *For some reason, I found that on 08/16/17 that this never transpired. *I personally spoke with Dr. Spence, the medical house staff, & the surgical PA the p.m. of , to facilitate this. 08/15/17: LDH 525, *CRP > 9.0, Fe 26, TIBC 286, Fe sat 9.1%, ferritin 64.5, 08/16/17: WBC 8.6, H/H 10.7/33.1, PLT 187, PT 13.2, INR 1.21, BUN/Cr 11/0.6, GFR > 60, Na 139, K 3.6, HCO3 23, AG 10, allbumin 2.9, globulin 3.0, TBil 1.0, alk phos 93, AST 37, ALT 62 08/16/17: *ROCÍO, AMA- pending (? Hep serologies never sent). *As of 08/16/17, the patient remained hemodynamically stable & afebrile, with O2 sat RA 97%. She had some recurrent epigastric pain "2 out of 10" & some nausea without vomiting, after eating jello. She had only requiring small amounts of Dilaudid. She denied any fevers, chills, jaundice, chest pain, or shortness of breath. Her IV Ringers lactate was decreased to 75 cc/hr. There was no laboratory evidence of hemoconcentration. Her transaminases were resolving. Review of Systems: Full 14 point review of systems otherwise noncontributory, and as above. Constitutional: Reports: no symptoms. EENTM: Reports: no symptoms. Cardiovascular: Reports: no symptoms. Respiratory: Reports: no symptoms. GI: Reports: abdominal pain, nausea w/o vomiting. Genitourinary: Reports: no symptoms. Musculoskeletal: Reports: no symptoms. Skin: Reports: no symptoms. Neurological/Psychological: Reports: no symptoms. Hematologic/Endocrine: Reports: no symptoms. Immunologic/Allergic: Reports: no symptoms. All Other Systems: Reviewed and Negative Objective Vital Signs and I&Os Vital Signs Date Time Temp Pulse Resp B/P B/P Pulse O2 O2 Flow FiO2 Mean Ox Delivery Rate 08/16 2121 98.8 66 20 138/80 08/16 1434 97.2 74 20 130/80 97 Room Air 08/16 1312 98.6 75 20 144/88 08/16 0624 98.6 75 20 144/88 94 Room Air 08/15 2337 98.1 76 20 168/78 96 Room Air Intake & Output 08/16 1600 08/16 0400 08/15 1600 08/15 0400 08/14 1600 08/14 0400 Intake Total 1200 1200 2350 2000 1000 Output Total 400 400 600 400 Balance 373 694 2095 1600 1000 Intake, IV 1200 1200 2350 2000 1000 Intake, Oral 0 0 Number 0 Bowel Movements Output, Urine 400 400 600 400 Patient 256 lb 256 lb 260 lb Weight Weight Bed scale Reported by Patient Measurement Method Physical Exam: Well-developed, well-nourished, pleasant, morbidly obese female, non-toxic appearing, in no apparent distress. Sclera anicteric. Conjunctiva pink. Oropharynx clear. Slightly dry mucous membranes. No oral thrush. No aphthous ulcers. There is no adenopathy, thyromegaly, or JVD. No peripheral stigmata of inflammatory bowel disease or chronic liver disease on exam. No spiders on the anterior chest wall. No CVA tenderness. No spine tenderness. Breast & pelvic exams: API. Lungs: clear to A&P, with slight decreased BS at the bases B/L. No wheezing, rales, or rhonchi. No CWT. Heart exam: regular rate rhythm, S1 and S2, with II/ systolic murmur. Abdominal exam: normal bowel sounds, soft belly, obese, mild epigastric tenderness on deep palpation, without guarding or rebound. No mass. No splenomegaly. Liver approximately 14 cm by percussion. Negative Jaimes sign. No fluid shift. No pulsatile mass. No epigastric bruit. Digital rectal exam: deferred by patient ("due for colonoscopy"). Extremities: without cyanosis or clubbing. Trace pedal edema B/L. No palpable cords. + DJD. Post R TKR & L-fusion. No palmar erythema. No Dupuytren's contractures. Distal pulses 2+ bilaterally. DTRs 2+ bilaterally. Alert and oriented x 3. Right handed. CN II-XII intact. Motor 5/5 B/L. Motor 5/5 B/L. A detailed exam for peripheral neuropathy was deferred. No tremor. No asterixis. Current Medications: Current Medications Sig/Yoana Start time Last Medication Dose Route Stop Time Status Admin Carvedilol 12.5 MG BID 08/16 1246 AC 08/16 PO 2122 Enoxaparin Sodium 40 MG DAILY 08/15 0900 AC 08/16 SC 1044 Hydromorphone HCl 2 MG Q4P PRN 08/14 1300 AC 08/16 PO 1640 Ketorolac 15 MG Q6-PRN PRN 08/14 1300 DC 08/16 Tromethamine IV 08/17 1257 0251 Lactated Ringer's 1,000 ML [id number] 08/14 1245 AC 08/16 IV 2122 Levothyroxine Sodium 0.05 MG DAILY AC 08/16 1246 AC 08/16 PO 1312 Ondansetron HCl 4 MG Q6P PRN 08/14 1300 AC IV Results Pertinent Lab Results: Laboratory Tests 08/16 08/16 1855 0740 Chemistry Sodium (137 - 145 mmol/L) 139 Potassium (3.5 - 5.1 mmol/L) 3.6 Chloride (98 - 107 mmol/L) 105 Carbon Dioxide (22 - 30 mmol/L) 23 Anion Gap (5 - 16) 10 BUN (7 - 17 mg/dL) 11 Creatinine (0.5 - 1.0 mg/dL) 0.6 Estimated GFR (>60 ml/min) > 60 BUN/Creatinine Ratio (7 - 25 %) 18.3 Total Bilirubin (0.2 - 1.3 mg/dL) 1.0 Direct Bilirubin (< 0.4 mg/dL) 0.3 AST (14 - 36 U/L) 37 H ALT (9 - 52 U/L) 62 H Alkaline Phosphatase (<127 U/L) 93 Total Protein (6.3 - 8.2 g/dL) 5.9 L Albumin (3.5 - 5.0 g/dL) 2.9 L Coagulation PT (9.4 - 12.5 SEC) 13.2 H INR (0.90 - 1.19) 1.21 H Hematology CBC w Diff NO MAN DIFF REQ WBC (4.8 - 10.8 /CUMM) 8.6 RBC (4.20 - 5.40 /CUMM) 4.04 L Hgb (12.0 - 16.0 G/DL) 10.7 L Hct (37 - 47 %) 33.1 L MCV (81.0 - 99.0 FL) 82.0 MCH (27.0 - 31.0 PG) 26.4 L MCHC (33.0 - 37.0 G/DL) 32.2 L RDW (11.5 - 14.5 %) 16.9 H Plt Count (130 - 400 /CUMM) 187 MPV (7.4 - 10.4 FL) 10.0 Gran % (42.2 - 75.2 %) 66.8 Lymphocytes % (20.5 - 51.1 %) 19.0 L Monocytes % (1.7 - 9.3 %) 10.6 H Eosinophils % (0 - 5 %) 3.3 Basophils % (0.0 - 2.0 %) 0.3 Absolute Granulocytes (1.4 - 6.5 /CUMM) 5.7 Absolute Lymphocytes (1.2 - 3.4 /CUMM) 1.6 Absolute Monocytes (0.10 - 0.60 /CUMM) 0.9 H Absolute Eosinophils (0.0 - 0.7 /CUMM) 0.3 Absolute Basophils (0.0 - 0.2 /CUMM) 0 Immunology ROCÍO Titer Pending Anti-Nuclear Antibody Pending 08/15 08/14 0728 0903 Chemistry Sodium (137 - 145 mmol/L) 139 142 Potassium (3.5 - 5.1 mmol/L) 3.6 3.8 Chloride (98 - 107 mmol/L) 103 102 Carbon Dioxide (22 - 30 mmol/L) 26 28 Anion Gap (5 - 16) 10 12 BUN (7 - 17 mg/dL) 16 26 H Creatinine (0.5 - 1.0 mg/dL) 0.8 0.9 Estimated GFR (>60 ml/min) > 60 > 60 BUN/Creatinine Ratio (7 - 25 %) 20.0 28.9 H Glucose (65 - 99 mg/dL) 105 H Calcium (8.4 - 10.2 mg/dL) 9.1 Iron (37 - 170 ug/dL) 26 L TIBC (265 - 497 ug/dL) 286 Ferritin (11.1 - 264 ng/mL) 64.5 Total Bilirubin (0.2 - 1.3 mg/dL) 1.3 AST (14 - 36 U/L) 58 H 161 H ALT (9 - 52 U/L) 81 H 137 H Alkaline Phosphatase (<127 U/L) 89 124 Lactate Dehydrogenase (313 - 618 U/L) 525 Troponin I (< 0.11 ng/ml) < 0.01 C-Reactive Prot, Quant (<1.0 mg/dL) > 9.0 H Total Protein (6.3 - 8.2 g/dL) 7.0 Albumin (3.5 - 5.0 g/dL) 3.8 Globulin (1.9 - 4.2 gm/dL) 3.2 Albumin/Globulin Ratio (1.1 - 2.2 %) 1.2 Triglycerides (<150 mg/dL) 44 Cholesterol (<200 MG/DL) 145 LDL Cholesterol, Calc (65 - 129 mg/dL) 61 L HDL Cholesterol (40 - 60 mg/dL) 76 H Cholesterol/HDL Ratio (0.00 - 4.23 %) 2 Lipase (23 - 300 U/L) > 77683 H Hematology CBC w Diff NO MAN DIFF REQ NO MAN DIFF REQ WBC (4.8 - 10.8 /CUMM) 8.2 10.1 RBC (4.20 - 5.40 /CUMM) 4.00 L 4.80 Hgb (12.0 - 16.0 G/DL) 10.8 L 12.8 Hct (37 - 47 %) 32.8 L 39.4 MCV (81.0 - 99.0 FL) 82.2 82.2 MCH (27.0 - 31.0 PG) 27.1 26.7 L MCHC (33.0 - 37.0 G/DL) 33.0 32.5 L RDW (11.5 - 14.5 %) 17.5 H 17.3 H Plt Count (130 - 400 /CUMM) 176 236 MPV (7.4 - 10.4 FL) 9.7 9.2 Gran % (42.2 - 75.2 %) 65.6 74.4 Lymphocytes % (20.5 - 51.1 %) 20.8 16.8 L Monocytes % (1.7 - 9.3 %) 9.3 7.0 Eosinophils % (0 - 5 %) 4.1 1.5 Basophils % (0.0 - 2.0 %) 0.2 0.3 Absolute Granulocytes (1.4 - 6.5 /CUMM) 5.4 7.5 H Absolute Lymphocytes (1.2 - 3.4 /CUMM) 1.7 1.7 Absolute Monocytes (0.10 - 0.60 /CUMM) 0.8 H 0.7 H Absolute Eosinophils (0.0 - 0.7 /CUMM) 0.3 0.1 Absolute Basophils (0.0 - 0.2 /CUMM) 0 0 04/15 0840 Urines Urinalysis LIGHT H Urine Color (YEL,AMB,STR) YEL Urine Clarity (CLEAR) HAZY H Urine pH (5.0 - 8.0) 5.5 Ur Specific Lyles (1.001 - 1.035) >= 1.030 Urine Protein (NEG,<30 MG/DL) TRACE H Urine Ketones (NEG) NEG Urine Nitrite (NEG) NEG Urine Bilirubin (NEG) NEG@ICTO Urine Urobilinogen (0.1 - 1.0 EU/dl) 0.2 Ur Leukocyte Esterase (NEG) MOD H Ur Microscopic SEDIMENT EXAMINED Urine RBC (0 - 5 /HPF) 1-3 Urine WBC (0 - 2 /HPF) 5-10 H Ur Epithelial Cells (NONE,FEW) MOD H Urine Bacteria (NEG/NONE) MOD H Granular Casts (NONE /LPF) RARE H Urine Hemoglobin (NEG) TRACE-INTACT Urine Glucose (N MG/DL) NEG Imaging/Other Studies: 04/15/18: EKG- NSR @ 66, borderline LAD, IRBBB, NSST flattening III & F. 08/14/17: CT ABDOMEN AND PELVIS *WITHOUT IV CONTRAST (*per ER, limiting the study)- 1. Inflammatory changes in region of pancreas with early retroperitoneal effusions. Findings consistent with pancreatitis. No loculated fluid. 2. Fine gravel like calculi versus hyperdense sludge in dependent gallbladder. No gallbladder wall thickening or biliary ductal dilatation. Normal CBD & liver. 3. Multilevel DJD & L-fusion. 08/14/17: US-LIMITED (RUQ) ABDOMEN- Technically limited examination. The gallbladder is mildly distended without focal wall thickening, pericholecystic fluid or cholelithiasis. Common duct is at the upper limits of normal in size (CBD 7 mm - normal for pt's age). Normal right kidney. No ascites. 08/15/17: MR ABDOMEN WITHOUT CONTRAST/MRCP- 1. Findings are consistent with pancreatitis with small amount of free fluid seen surrounding the pancreas and extending throughout the upper abdomen as discussed above. No variant pancreatic ductal anatomy is seen. The common bile duct is at the upper limits of normal (0.7 cm) in size and no evidence of choledocholithiasis is seen. 2. Small amount of dependent debris or gravel is seen within the gallbladder, which is mildly hydropic. No gallbladder wall thickening is seen. The pericholecystic fluid is nonspecific and most likely related to the pancreatitis. Clinical correlation requested. 08/16/17: XRY-PORTABLE CHEST XRAY- 1. Chronic elevation of right hemidiaphragm with associated mild subsegmental atelectasis/crowding of bronchovascular markings in the right lung base. 2. No significant pleural effusion seen.
[2017-08-16 21:41] VITALS: BP 128/82
[2017-08-17 06:36] VITALS: BP 142/80
--- NOTE | 2017-08-17 07:25 | History & Physical ---
General Information and HPI Source of Information: patient, old records Exam Limitations: no limitations Allergies/Medications Allergies: Coded Allergies: NO KNOWN ALLERGIES (01/09/12) Home Med list Ascorbic Acid (Vitamin C) 500 MG TABLET 1 TAB PO DAILY SUPPLEMENT (Reported) Aspirin (Ecotrin*) 81 MG TABLET.DR 1 TAB PO DAILY HEART/BLOOD (Reported) Atorvastatin Calcium 10 MG TABLET 0.5 TAB PO DAILY CHOLESTEROL (Reported) Calcium Carbonate/Vitamin D3 (Calcium 500 + D Tablet) (Unknown Strength) TABLET (Unknown Dose) PO DAILY SUPPLEMENT (Reported) Carvedilol 12.5 MG TABLET 1 TAB PO BID HEART/BP (Reported) Furosemide 40 MG TABLET 1 TAB PO BID DIURETIC (Reported) Levothyroxine Sodium (Synthroid) 50 MCG TABLET 1 TAB PO DAILY THYROID ( Reported) Multiple Vitamin (Multivitamins) 1 EACH TABLET 1 TAB PO DAILY SUPPLEMENT ( Reported) Naproxen 375 MG TABLET 1.5 TAB PO DAILY PAIN/INFLAMMATION (Reported) with food Harmon-3S/Dha/Epa/Fish Oil (Fish Oil 1,000 MG Softgel) 300 MG (250 MG-50 MG)-1, 000 MG CAPSULE 1 SGL PO DAILY SUPPLEMENT (Reported) Potassium Chloride 20 MEQ TAB.ER.PRT 1 TAB PO BID SUPPLEMENT (Reported) Past History Travel History Traveled to [place] past 21 day No Medical History Blood Transfusion Hx: Yes Neurological: NONE EENT: NONE Cardiovascular: hypertension, HIGH CHOLESTEROL Respiratory: NONE Gastrointestinal: NONE Hepatic: NONE Renal: NONE Musculoskeletal: degen joint disease Psychiatric: NONE Endocrine: hypothyroidism, obesity Blood Disorders: NONE Cancer(s): NONE 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 MOTHER, , Age 73; Cause: Colon cancer. Relation not specified for: colon cancer in mother Psychosocial History Where do you live? Home Who Do You Live With? spouse Services at Home: None Primary Language: Kiswahili Smoking Status: Never Smoked ETOH Use: denies use (xc rare) Illicit Drug Use: denies illicit drug use Living Will? yes Power of Personnel Placement Specialist/HCP? no Other Social History: to Gabriel. 1 son & 1 dtr- [employer]. No cigarettes. Rare EtOH. No illicit drugs. 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 Functional Ability ADLs Independent: dressing, eating, toileting, bathing. Ambulation: independent IADLs Independent: shopping, housework, finances, food prep, telephone, transportation , medication admin. 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
--- NOTE | 2017-08-17 07:26 | PN- Housestaff ---
Mike Rowland MD,[facility] 08/17/17 0726: Subjective Follow-up For: Pancreatitis Rule out colistin Subjective: Patient visited today, was sitting at bedside comfortably in no acute distress, was alert and oriented. reported abdominal pain with clear liq diet last night, was npo from midnight. No fever or chills, no shortness of breathing, no chest pain, no other events. Surgery consulted and recommended cholecystectomy later today. Review of Systems Constitutional: Reports: see HPI. Objective Last 24 Hrs of Vital Signs/I&O Vital Signs Date Time Temp Pulse Resp B/P B/P Pulse O2 O2 Flow FiO2 Mean Ox Delivery Rate 08/17 0636 98.5 71 20 142/80 95 Room Air 08/16 2141 98.7 66 20 128/82 96 08/16 2122 98.8 66 20 138/80 08/16 1434 97.2 74 20 130/80 97 Room Air Intake & Output 08/17 1600 08/17 0800 08/17 0000 Intake Total 600 480 Output Total Balance 600 480 Intake, IV 600 Intake, Oral 480 Number 1 Bowel Movements Physical Exam General Appearance: Alert, Oriented X3, Cooperative, No Acute Distress Skin Temp/Moisture Exam: Warm/Dry Sepsis Skin Exam (color): Normal for Ethnicity HEENT: Atraumatic, EOMI Cardiovascular: Normal S1, Normal S2 Lungs: Clear to Auscultation, Normal Air Movement Abdomen: Soft, improved epigastric pain Neurological: Normal Speech Current Medications: Current Medications Sig/Yaona Start time Last Medication Dose Route Stop Time Status Admin Carvedilol 12.5 MG BID 08/16 1246 AC 08/16 PO 2122 Enoxaparin Sodium 40 MG DAILY 08/15 0900 AC 08/16 SC 1044 Hydromorphone HCl 2 MG Q4P PRN 08/14 1300 AC 08/17 PO 0612 Lactated Ringer's 1,000 ML .[id number] 08/14 1245 AC 08/16 IV 2122 Levothyroxine Sodium 0.05 MG DAILY AC 08/16 1246 AC 08/17 PO 0612 Ondansetron HCl 4 MG Q6P PRN 08/14 1300 AC IV Last 24 Hrs of Lab/Aj Results Last 24 Hrs of Labs/Mics: Laboratory Tests 08/17/17 0826: IgG Total Pending, IgG1 Pending, IgG2 Pending, IgG3 Pending, IgG4 Pending 08/17/17 0826: Anion Gap 11, Estimated GFR > 60, BUN/Creatinine Ratio 15.0, Iron 27 L, TIBC 282, Ferritin 98.4, Total Bilirubin 1.0, Direct Bilirubin 0.5 H, AST 27, ALT 51 , Alkaline Phosphatase 87, Total Protein 6.1 L, Albumin 3.0 L, Vitamin B12 975 H, Folate > 20.0 H, CBC w Diff NO MAN DIFF REQ, RBC 4.06 L, MCV 81.8, MCH 27.2, MCHC 33.3, RDW 16.4 H, MPV 9.8, Gran % 65.1, Lymphocytes % 19.6 L, Monocytes % 11.1 H, Eosinophils % 3.9, Basophils % 0.3, Absolute Granulocytes 5.1, Absolute Lymphocytes 1.6, Absolute Monocytes 0.9 H, Absolute Eosinophils 0.3, Absolute Basophils 0, Anti-Mitochondrial Ab Pending, Hepatitis A IgM Ab NONREACTIVE, Hep Bs Antigen NONREACTIVE, Hep B Core IgM Ab Conf NONREACTIVE, Hepatitis C Antibody NONREACTIVE 08/16/17 0065: CBC w Diff NO MAN DIFF REQ, RBC 4.04 L, MCV 82.0, MCH 26.4 L, MCHC 32.2 L, RDW 16.9 H, MPV 10.0, Gran % 66.8, Lymphocytes % 19.0 L, Monocytes % 10.6 H, Eosinophils % 3.3, Basophils % 0.3, Absolute Granulocytes 5.7, Absolute Lymphocytes 1.6, Absolute Monocytes 0.9 H, Absolute Eosinophils 0.3, Absolute Basophils 0 Assessment/Plan Assessment: 67-year-old lady, 3d history of abdominal pain PMH: hyperlipidemia, HTN, hypothyroid VS, Ph Ex at admission: insignficant Labs at admission: increased ALT and ALT in ~150, Lipase>[id number] Imagings at admission: Abdominal CT: 1. Inflammatory changes in region of pancreas with early retroperitoneal effusions. Findings consistent with pancreatitis. No loculated fluid. 2. Fine gravel like calculi versus hyperdense sludge in dependent gallbladder. No gallbladder wall thickening or biliary ductal dilatation. Abdominal US: Technically limited examination. The gallbladder is mildly distended without focal wall thickening, pericholecystic fluid or cholelithiasis. Common duct is at the upper limits of normal in size. Patient was admitted to floor for management of following conditions: Pancreatitis: Elevated lipase and CT finding of inflammation surrounding the pancreas was consistent with a diagnosis of acute pancreatitis. The elevated ALT of above 150 could be suggestive of gallstone etiology. MRCP was done: 1. Findings are consistent with pancreatitis with small amount of free fluid seen surrounding the pancreas and extending throughout the upper abdomen as discussed above. No variant pancreatic ductal anatomy is seen. The common bile duct is at the upper limits of normal (0.7 cm) in size and no evidence of choledocholithiasis is seen. 2. Small amount of dependent debris or gravel is seen within the gallbladder, which is mildly hydropic. No gallbladder wall thickening is seen. The pericholecystic fluid is nonspecific and most likely related to the pancreatitis. Clinical correlation requested. - admit to floor - pain control with Ketorlac - IV hydration with LR - Zofran for nausea - recieved clear liq diet, NPO since midnight - planned for cholecystectomy later today - follow surgery. FC DVT PPX: Enoxaparin Problem List: 1. Pancreatitis Pain Ratin (in AM) Pain Location: abdominal, epigastric Pain Goal: Pain 4 or less Pain Plan: continue current plan Tomorrow's Labs & Rationales: CBC BEP Sukumar Spence MD 08/17/17 1204: Attending MD Review Statement Attending Statement Attending MD Statement: examined this patient, discuss w/resident/PA/TRACK CAR OPERATOR, agreed w/resident/PA/TRACK CAR OPERATOR, reviewed EMR data (avail), discussed with nursing, discussed with case mgmt, amended to note Attending Assessment/Plan: Patient seen and examined. Resting comfortably unless in any acute distress. she reports that following her clear liquid diet yesterday evening she became nauseous and developed some epigastric discomfort. This has since resolved. She is afebrile. She is hemodynamically stable. She has no complaints this morning. On exam her abdomen is soft and nontender. Laboratory data reveals that her transaminases have returned back to normal. her pancreatitis was likely induced by biliary stones. She has been evaluated by the surgical service and will be undergoing an elective cholecystectomy today. If she remains stable overnight she may be discharged home tomorrow with recommendations from the surgical and gastroenterology service. Her hemoglobin level remains low today but stable. She has no recent labs for comparison for baseline. her iron profile shows mild iron deficiency. At the time of discharge she will be provided with prescriptions for oral iron supplements. She should follow-up with the gastroenterology service as an outpatient for her age-appropriate colon cancer screening particularly in view of her family history.
--- NOTE | 2017-08-17 08:50 | Cons- General Surgery ---
General Information and HPI Consulting Request Date of Consult: 08/17/17 Requested By: Sukumar Spence MD History of Present Illness: This is a 67-year-old morbidly obese woman who presents to the medical service with her first episode of severe epigastric and bilateral upper abdominal pain. Pain began after a medial and radiated to the back. It was associated with nausea. She was found to have pancreatitis by serology. CT scan was suggestive of sludge or small stones in the gallbladder. MRCP shows no choledocholithiasis and evidence of resolving pancreatitis. Patient now feels better. Her pain is for the most part resolved. She had some liquids last night with recurrence of mild epigastric pain. Allergies/Medications Allergies: Coded Allergies: NO KNOWN ALLERGIES (01/09/12) Home Med List: Ascorbic Acid (Vitamin C) 500 MG TABLET 1 TAB PO DAILY SUPPLEMENT (Reported) Aspirin (Ecotrin*) 81 MG TABLET.DR 1 TAB PO DAILY HEART/BLOOD (Reported) Atorvastatin Calcium 10 MG TABLET 0.5 TAB PO DAILY CHOLESTEROL (Reported) Calcium Carbonate/Vitamin D3 (Calcium 500 + D Tablet) (Unknown Strength) TABLET (Unknown Dose) PO DAILY SUPPLEMENT (Reported) Carvedilol 12.5 MG TABLET 1 TAB PO BID HEART/BP (Reported) Ferrous Sulfate 325 MG (65 MG IRON) TABLET 1 TAB PO BID ANEMIA Furosemide 40 MG TABLET 1 TAB PO BID DIURETIC (Reported) Levothyroxine Sodium (Synthroid) 50 MCG TABLET 1 TAB PO DAILY THYROID ( Reported) Multiple Vitamin (Multivitamins) 1 EACH TABLET 1 TAB PO DAILY SUPPLEMENT ( Reported) Naproxen 375 MG TABLET 1.5 TAB PO DAILY PAIN/INFLAMMATION (Reported) with food Atlas-3S/Dha/Epa/Fish Oil (Fish Oil 1,000 MG Softgel) 300 MG (250 MG-50 MG)-1, 000 MG CAPSULE 1 SGL PO DAILY SUPPLEMENT (Reported) Potassium Chloride 20 MEQ TAB.ER.PRT 1 TAB PO BID SUPPLEMENT (Reported) Current Medications: Current Medications Sig/Yoana Start time Last Medication Dose Route Stop Time Status Admin Carvedilol 12.5 MG BID 08/16 1246 AC 08/16 PO 2122 Enoxaparin Sodium 40 MG DAILY 08/15 0900 AC 08/16 SC 1044 Hydromorphone HCl 2 MG Q4P PRN 08/14 1300 AC 08/17 PO 0612 Lactated Ringer's 1,000 ML .[id number] 08/14 1245 AC 08/16 IV 2122 Levothyroxine Sodium 0.05 MG DAILY AC 08/16 1246 AC 08/17 PO 0612 Ondansetron HCl 4 MG Q6P PRN 08/14 1300 AC IV Past History Medical History Blood Transfusion Hx: Yes Neurological: NONE EENT: NONE Cardiovascular: hypertension, HIGH CHOLESTEROL Respiratory: NONE Gastrointestinal: NONE Hepatic: NONE Renal: NONE Musculoskeletal: degen joint disease Psychiatric: NONE Endocrine: hypothyroidism, obesity Blood Disorders: NONE Cancer(s): NONE MOBILE ARCHITECT/Reproductive: D & C Surgical History Pertinent Surgical History: knee replacement, spinal fusion, RT TKR L-SPINAL FUSION Family History Relations & Conditions If Any: FATHER, , Age 94; Cause: Old age. MOTHER, , Age 73; Cause: Colon cancer. Relation not specified for: colon cancer in mother Psychosocial History Where Do You Live? Home Who Do You Live With? spouse Services at Home: None Primary Language: Panamanian Smoking Status: Never Smoked ETOH Use: denies use (xc rare) Illicit Drug Use: denies illicit drug use Living Will? yes Power of Miner Helper/HCP? no Other Social History: to Gabriel. 1 son & 1 dtr- [employer]. No cigarettes. Rare EtOH. No illicit drugs. 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 Functional Ability ADLs Independent: dressing, eating, toileting, bathing. Ambulation: independent IADLs Independent: shopping, housework, finances, food prep, telephone, transportation , medication admin. 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 No exertional chest pain. Abdominal pain per HPI which is now resolved. [place] troponins are negative Exam & Diagnostic Data Vital Signs and I&O Vital Signs Date Time Temp Pulse Resp B/P B/P Pulse O2 O2 Flow FiO2 Mean Ox Delivery Rate 08/17 0636 98.5 71 20 142/80 95 Room Air 08/16 2141 98.7 66 20 128/82 96 08/16 2122 98.8 66 20 138/80 08/16 1434 97.2 74 20 130/80 97 Room Air 08/16 1312 98.6 75 20 144/88 Intake & Output 08/17 1600 08/17 0800 08/17 0000 08/16 1600 08/16 0800 08/16 0000 Intake Total 600 480 0 1200 1200 Output Total 400 400 Balance 600 480 0 800 800 Intake, IV 600 1200 1200 Intake, Oral 480 0 Number 1 Bowel Movements Output, Urine 400 400 Patient 256 lb Weight Physical Exam: Gen.: She is obese in no distress looks her stated age HEENT: Anicteric PERRL EOMI Abdomen: Soft nontender nondistended negative Jaimes sign Extremities no cyanosis clubbing or edema Last 24 Hours of Labs: Laboratory Tests 08/16 185 Hematology CBC w Diff NO MAN DIFF REQ WBC (4.8 - 10.8 /CUMM) 8.6 RBC (4.20 - 5.40 /CUMM) 4.04 L Hgb (12.0 - 16.0 G/DL) 10.7 L Hct (37 - 47 %) 33.1 L MCV (81.0 - 99.0 FL) 82.0 MCH (27.0 - 31.0 PG) 26.4 L MCHC (33.0 - 37.0 G/DL) 32.2 L RDW (11.5 - 14.5 %) 16.9 H Plt Count (130 - 400 /CUMM) 187 MPV (7.4 - 10.4 FL) 10.0 Gran % (42.2 - 75.2 %) 66.8 Lymphocytes % (20.5 - 51.1 %) 19.0 L Monocytes % (1.7 - 9.3 %) 10.6 H Eosinophils % (0 - 5 %) 3.3 Basophils % (0.0 - 2.0 %) 0.3 Absolute Granulocytes (1.4 - 6.5 /CUMM) 5.7 Absolute Lymphocytes (1.2 - 3.4 /CUMM) 1.6 Absolute Monocytes (0.10 - 0.60 /CUMM) 0.9 H Absolute Eosinophils (0.0 - 0.7 /CUMM) 0.3 Absolute Basophils (0.0 - 0.2 /CUMM) 0 Imaging Results: CT scan of the abdomen pelvis was reviewed. Findings show hyperdense sludge in the gallbladder without inflammatory changes. Ultrasound shows no evidence of gallstones MRCP shows sludge and/or small stones without choledocholithiasis and evidence of pancreatic edema Assessment/Plan Assessment/Plan Patient with likely gallstone pancreatitis. By symptoms and imaging there is no evidence of residual choledocholithiasis. Her pancreatitis appears to be clinically resolved and arrangements for laparoscopic cholecystectomy should be arranged. Operation is tentatively scheduled for later today. She is informed the risk of the operation including bleeding, infection, conversion to open, postcholecystectomy diarrhea and unforeseen visceral injury. She agrees to proceed Copies To: Yumi Morris APRN Consult Acknowledgment - Thank you for your consult request.
[2017-08-17 09:29] LABS: ABSOLUTE BASOPHIL COUNT 0 /CUMM (0.0-0.2); ABSOLUTE EOSINOPHIL COUNT 0.3 /CUMM (0.0-0.7); ABSOLUTE GRANULOCYTE CT 5.1 /CUMM (1.4-6.5); ABSOLUTE LYMPH COUNT 1.6 /CUMM (1.2-3.4); ABSOLUTE MONOCYTE COUNT 0.9 /CUMM (0.10-0.60); BASOPHIL % 0.3 % (0.0-2.0); EOSINOPHIL % 3.9 % (0-5); GRANULOCYTE % 65.1 % (42.2-75.2); HEMATOCRIT 33.2 % (37-47); MEAN CORPUSCULAR HGB 27.2 PG (27.0-31.0); MEAN CORPUSCULAR HGB CONC 33.3 G/DL (33.0-37.0); MEAN CORPUSCULAR VOLUME 81.8 FL (81.0-99.0); MEAN PLATELET VOLUME 9.8 FL (7.4-10.4); PLATELET COUNT 188 /CUMM (130-400); RBC DISTRIBUTION WIDTH 16.4 % (11.5-14.5); RED BLOOD CELL CT 4.06 /CUMM (4.20-5.40); WHITE BLOOD CELL COUNT 7.9 /CUMM (4.8-10.8)
[2017-08-17] MEDS ORDERED: FERROUS SULFAT325 M3 PO (10:18)
--- NOTE | 2017-08-17 10:19 | Patient Discharge Instructions ---
Discharge Instructions General Discharge Information You were seen/treated for: Pancreatitis with gallstone etiology You had these procedures: Lap cholecystectomy Watch for these problems: Severe abdominal pain, nausea, vomiting, dizziness, chest pain, shortness of breathing or worsening of any other symptoms Special Instructions: Please follow with your PCP after discharge. Please also disscuss the next steps for anemia work up. Please follow with your surgeon regarding your surgical procedure in one week. Please follow with your handbag stitcher within one week of discharge regarding pancreatitis. Please take your medications as ordered. You can take tynelol for pain. Diet Continue normal diet: No Recommended Diet: Low Fat Activity Full Activity/No Limits: No Activity Self Limited: Yes Acute Coronary Syndrome Inclusion Criteria At DC or during hospital stay patient has or had the following: ACS DIAGNOSIS No Discharge Core Measures Meds if any: Prescribed or Continued at Discharge Meds if any: NOT Prescribed or Continued at Discharge Congestive Heart Failure Inclusion Criteria At DC or during hospital stay patient has or had the following: CHF DIAGNOSIS No Discharge Core Measures Meds if any: Prescribed or Continued at Discharge Meds if any: NOT Prescribed or Continued at Discharge Cerebrovascular accident Inclusion Criteria At DC or during hospital stay patient has or had the following: CVA/TIA Diagnosis No Discharge Core Measures Meds if any: Prescribed or Continued at Discharge Meds if any: NOT Prescribed or Continued at Discharge Venous thromboembolism Inclusion Criteria VTE Diagnosis No VTE Type NONE VTE Confirmed by (Test) NONE Discharge Core Measures - Per Current guidelines, there needs to be overlap - treatment for the first 5 days of Warfarin therapy. - If discharged on Warfarin prior to 5 days of - overlap therapy, the patient will need to be - assessed for post discharge needs including - *Post discharge parental anticoagulation - *Warfarin and/or parental anticoagulation education - *Follow up date to check INR post discharge At least 5 days overlap therapy as Inpatient No Meds if any: Prescribed or Continued at Discharge Note: Overlap Therapy is Warfarin and Anticoagulant Meds if any: NOT Prescribed or Continued at Discharge
[2017-08-17 14:59] VITALS: BP 180/88
--- NOTE | 2017-08-17 16:57 | Operative Report ---
Operative/Inv Procedure Report Surgery Date: 08/17/17 Name of Procedure: Laparoscopic cholecystectomy Pre-Operative Diagnosis: Biliary pancreatitis Post-Operative Diagnosis: Same Estimated Blood Loss: less than 50ml Surgeon/Ceramic Tile Installer: Rc Patrick M.D./Julia KAYE Anesthesia: general endotracheal tube Drains: None Specimens: Gallbladder Operative Indication: 67-year-old woman with pancreatitis. Her pancreatitis has since resolved. She is found to have sludge on MRI and presents for resection of her gallbladder. Operative/Procedure Note Note: After informed consent patient is brought to the operating room and laid supine. General anesthesia was obtained and her abdomen was prepped and draped. The skin above the umbilicus infiltrated with local anesthesia and a curvilinear incision made sharply. We came down through the subcutaneous tissues bluntly and grasped the fascia with Sandrine's. A fasciotomy was created sharply and stay sutures placed. The peritoneum was entered sharply and a blunt Harper port was placed. Pneumoperitoneum was achieved. 3, 5 mm ports were placed in the epigastrium and right upper quadrant after local anesthesia was instilled and under direct vision the camera. She's placed in reverse Trendelenburg and rotated towards the left. The gallbladder is identified. There was diffuse thickening of the gallbladder wall with watery pericholecystic fluid. The gallbladder was grasped at the dome and retracted towards the head. Infundibulum was then grasped. Adhesions to the undersurface were taken down with blunt and cautery dissection. We dissected both sides the triangle Calot peritoneal tissue with cautery. The artery was medial and its normal anatomic position. There was an overlying node which was bluntly removed. The artery was cauterized medially to allow it to be mobilized away from the duct. [place] was cleared of areolar tissue with cautery. The arteries and duct were doubly ligated with clips. Gallbladder is removed from the fossa electrocautery. It was placed in Endo Catch bag and cinched up. Right upper quadrant was and suction irrigated normal saline. Hemostasis achieved with cautery. The ports were then removed and the gallbladder delivered and passed off the field. The fascia was closed with 0 Vicryl suture. Skin incisions closed with 4-0 Vicryl. Steri-Strips and sterile dressing applied. Sponge and needle counts are correct. CC: Yumi Morris APRN
[2017-08-17 19:27] VITALS: BP 156/74
--- NOTE | 2017-08-17 19:30 | PN- Gastroenterology ---
Assessment/Plan GI Assessment/Recommendations: 67 y/o female, HTN, HLD, hypoT4, hx colon polyps, obesity, DJD, post R TKR & L- spine fusion, +FHx colon Ca (M- 73; without additional FHx GI Ca, GBD, PUD, IBD, inherited pancreatitis, or inherited liver disease), with intact GB & no previous abdominal surgery, without new meds (albeit on Lasix & Lipitor x yrs ), in [facility] until last week, she was on vacation in [place]. On 08/12/17, the patient ate a tuna fish sandwich. This was followed 1/2 hour later by increased reflux and diffuse, sharp upper abdominal pain B/L, radiating to the mid-back (not to the scapula). There was no definite positional component. This was followed by nausea & vomiting, contents showing partially digested food. There was no hematemesis or melena. The symptoms subsided after a few hours. She did not eat the next day until dinner time, when she had a chicken sandwich at the airport on Tuesday08[place]14/15, followed by recurrent, sharp upper abdominal pain & bloating, more severe, "10 out of 10". She tried Gas-X and Ibuprofen for her symptoms, but claimed she does not usually take NSAIDS. Her symptoms persisted. She was debating whether to go to the ER, but decided to wait until she came home. She denied any fevers, chills, confusion, CP, SOB, jaundice, light stools, or pruritus. Her urine was slightly darker. She normally denied any FFI. She denied any significant diarrhea, constipation, obstipation, tenesmus, change in stool caliber or rectal bleeding. She denied any rashes or arthralgias, aside from her DJD. Her weight was stable. She denied using any sulfa medications or thiazides. She claimed her TG are usually normal, regarding her HLD. She denied any abdominal trauma, early satiety, preceding GERD, odynophagia, or dysphagia. She denied having any previous EGD. She had 2 previous colonoscopies by [facility]- Dr. Saleh (08/07/01 & 12/01/06)- both reports were purged, but the latter study revealed purely hyperplastic polyps. She claimed her GI care is by Dr. breen in [place], [place], & that her last colonoscopy there in the spring was "normal except for a benign polyp". She was told to return in 5 years (which is now). The patient denied any cigarette smoking or illicit drug use. EtOH use was rare. The patient presented to the [facility] ER for the above on 08/14/17, at 8: 23 a.m., with the above abdominal pain "8 out of 10", which improved after analgesics. At that point, she claimed some of her symptoms radiated to the right groin. She denied any dysuria, gross hematuria, history of renal stones, or [employer] symptoms. There was no vaginal spotting or discharge. Upon arrival, BP 153/90, P 73, RR 18, T 97.2, O2 sat RA 97%. The GI service was not notified upon admission. She received IV NS, Toradol, & Zofran by the ER. She was admitted to General Medicine. 01/09/12: *Note- normal LFTs. 08/14/17: Admission- WBC 10.1 (74% gran/8 ran Ab), H/H 12.8/39.4, MCV 82.2, RDW 17.3, PLT 236, glucose 105, BUN/Cr 26/0.9, GFR > 60, Na 142, K 3.8, HCO3 28, AG 12, *lipase > 10K, Ca 9.1, albumin 3.8, globulin 3.2, TBil 1.3, alk phos 124, AST 161, ALT 137, TChol 145, *TG 44, HDL 76, LDL 61, troponin < 0.01 (*no coags sent). 08/14/17: U/A- hazy, yellow, > 1.030, 5.5, 1-3 RBC, 5-10 WBC, rare gran cast, mod bact, mod epith, tr Hgb, neg icto, tr prot, 0.2 urobil; neg nitrite, mod esterase 08/15/17: WBC 8.2, H/H 10.8/32.8 (after IVF), PLT 176, bUN/Cr 16/0.8, GFR > 60, Na 139, K 3.6, HCO3 26, AG 10, ? no TBil, alk phos 89, AST 58, ALT 81. 08/14/17: EKG- NSR @ 66, borderline LAD, IRBBB, NSST flattening III & F. 08/14/17: CT ABDOMEN AND PELVIS *WITHOUT IV CONTRAST (*per ER, limiting the study)- 1. Inflammatory changes in region of pancreas with early retroperitoneal effusions. Findings consistent with pancreatitis. No loculated fluid. 2. Fine gravel like calculi versus hyperdense sludge in dependent gallbladder. No gallbladder wall thickening or biliary ductal dilatation. Normal CBD & liver. 3. Multilevel DJD & L-fusion. 08/14/17: US-LIMITED (RUQ) ABDOMEN- Technically limited examination. The gallbladder is mildly distended without focal wall thickening, pericholecystic fluid or cholelithiasis. Common duct is at the upper limits of normal in size (CBD 7 mm - normal for pt's age). Normal right kidney. No ascites. *The patient was admitted 08/14/17 with clinical, laboratory, and CT evidence of pancreatitis. Having stated that, the admission 08/14/17: CT was somewhat limited in assessing the pancreas, *as it was without IV contrast. CT was suggestive of biliary sludge, but no sludge or gallstones were seen on the subsequent RUQ sono. There were no dilated ducts. CBD of 7 mm is normal for the patient's age. On admission, the patient had 1 Grave sign by Rosa criteria (advanced age), but no LDH was sent. She had 2 Grave signs on admission by BiSAP criteria (advanced age & elevated BUN), but no CXR was done to rule out pleural effusions. The patient previously had normal LFTs on 01/09/12, which were the last chemistries in the [facility]. I am not certain what her LFTs have been since then. There was a discrepancy between the reading of the admission CT & RUQ ultrasound, in terms of possible biliary sludge. She may have some underlying FFI. Rule out gallstone pancreatitis. Her LFTs (transaminases) were improving as of 08/14/17, however a TBil was not repeated (normal TBil on admission). She denied any cigarettes or EtOH. She was on no medications to account for the above. I doubt that the Lipitor or Lasix were contributing to the pancreatitis, as she had been on these for years. Her TG were normal. There was no history of trauma. Other possibilities to consider could be IPMN/lesion, autoimmune pancreatitis, and/or pancreas divisum (the latter of which is a debatable entity in terms of it's cause & effect relationship with pancreatitis, as it is present in 1% of autopsies). Doubt penetrating ulcer. Her H/H & BUN have decreased appropriately after IVF, which is encouraging, going against hemoconcentration, which would be a poor prognostic sign. 08/15/17: MR ABDOMEN WITHOUT CONTRAST/MRCP- 1. Findings are consistent with pancreatitis with small amount of free fluid seen surrounding the pancreas and extending throughout the upper abdomen as discussed above. No variant pancreatic ductal anatomy is seen. The common bile duct is at the upper limits of normal (0.7 cm) in size and no evidence of choledocholithiasis is seen. 2. Small amount of dependent debris or gravel is seen within the gallbladder, which is mildly hydropic. No gallbladder wall thickening is seen. The pericholecystic fluid is nonspecific and most likely related to the pancreatitis. Clinical correlation requested. 08/16/17: XRY-PORTABLE CHEST XRAY- 1. Chronic elevation of right hemidiaphragm with associated mild subsegmental atelectasis/crowding of bronchovascular markings in the right lung base. 2. No significant pleural effusion seen. *I had returned to see the patient the p.m. of 08/15/17, to review the MRCP with her. The CBD was 7 mm (normal for pt's age) & clean, without choledocholithiasis. The gallbladder did show some sludge. There was no cholecystitis. At that point, I spoke with the patient's RN, who was advised to contact the network internship to arrange for a surgical consultation to consider CCKY. *For some reason, I found that on 08/16/17 that this never transpired. *I personally spoke with Dr. Spence, the medical house staff, & the surgical PA the p.m. of , to facilitate this. 08/15/17: LDH 525, *CRP > 9.0, Fe 26, TIBC 286, Fe sat 9.1%, ferritin 64.5, 08/16/17: WBC 8.6, H/H 10.7/33.1, PLT 187, PT 13.2, INR 1.21, BUN/Cr 11/0.6, GFR > 60, Na 139, K 3.6, HCO3 23, AG 10, allbumin 2.9, globulin 3.0, TBil 1.0, alk phos 93, AST 37, ALT 62 08/16/17: *ROCÍO, AMA- pending (? Hep serologies never sent). *As of 08/16/17, the patient remained hemodynamically stable & afebrile, with O2 sat RA 97%. She had some recurrent epigastric pain "2 out of 10" & some nausea without vomiting, after eating jello. She had only requiring small amounts of Dilaudid. She denied any fevers, chills, jaundice, chest pain, or shortness of breath. Her IV Ringers lactate was decreased to 75 cc/hr. There was no laboratory evidence of hemoconcentration. Her transaminases were resolving. 08/16/17: mild + ROCÍO 1:160 homogeneous 08/17/17: *Hep A Ab, Hep Bs Ag, Hep B core Ab, Hep C Ab- all negative; Fe 27, TIBC 282, Fe sat 9.6%, ferritin 98.4, B12 975, folate > 20 08/17/17: WBC 7.9, H/H 11.1/33.2, PLT 188, BUN/Cr 9/0.6, GFR > 60, Na 140, K 3.6 , albumin 3.0, globulin 3.1, TBil 1.0, DBil 0.5, alk phos 87, AST 27, ALT 51 08/17/17: *AMA- pending; *IgG4- pending. *The patient was seen by Dr. Patrick, of surgery 08/17/2017, and had a lap CCKY later in the day. As the patient had already had a preoperative MRCP which cleared the CBD, an IOC was not performed. Dr. Patrick did perform some BRAULIO at the undersurface of the gallbladder. *As of 08/17/17, the patient was essentially afebrile (Tm 99), & intermittently HTN, with O2 sat RA 97%. The patient is about to start clears po postop. She was resting comfortably, without any complaints. *SUGGEST- *Postop care, diet advancement, and checking of surgical pathology post 08/17/17 : lap CCKY, as per surgery. Strict I/O's. Narcotic analgesics as needed. Zofran as needed. *No NSAIDs. DVT prophylaxis. Serial LFTs (including TBil), CBC, lytes , GFR. Watch for hemoconcn. *Await 08/17/17: IgG4 level. *Follow-up with PMD re: mildly + ROCÍO 1:160 homogeneous. Await 08/17/17:*AMA. Mobilize patient as tolerated. Follow-up with medical team regarding abnormal urinary sediment. As an aside, the patient is due for a follow-up outpt surveillance colonoscopy (hx colon polyps, +FHx colon Ca-M) with her usual GI MD, Dr. Breen, who can also consider EUS of the pancreas, depending on her outpt clinical course, but most likely, the above was gallstone pancreatitis. *Further inpatient GI follow-up as needed.. Problem List: 1. Pancreatitis 2. Abdominal pain 3. Nausea & vomiting 4. Hyperlipemia 5. Elevated LFTs 6. History of colon polyps 7. Family history of colon cancer in mother Subjective Subjective: 08/16/17: mild + ROCÍO 1:160 homogeneous 08/17/17: *Hep A Ab, Hep Bs Ag, Hep B core Ab, Hep C Ab- all negative; Fe 27, TIBC 282, Fe sat 9.6%, ferritin 98.4, B12 975, folate > 20 08/17/17: WBC 7.9, H/H 11.1/33.2, PLT 188, BUN/Cr 9/0.6, GFR > 60, Na 140, K 3.6 , albumin 3.0, globulin 3.1, TBil 1.0, DBil 0.5, alk phos 87, AST 27, ALT 51 08/17/17: *AMA- pending; *IgG4- pending. *The patient was seen by Dr. Patrick, of surgery 08/17/2017, and had a lap CCKY later in the day. As the patient had already had a preoperative MRCP which cleared the CBD, an IOC was not performed. Dr. Patrick did perform some BRAULIO at the undersurface of the gallbladder. *As of 08/17/17, the patient was essentially afebrile (Tm 99), & intermittently HTN, with O2 sat RA 97%. The patient is about to start clears po postop. She was resting comfortably, without any complaints. Review of Systems: Full 14 point review of systems otherwise noncontributory, and as above. Constitutional: Reports: no symptoms. EENTM: Reports: no symptoms. Cardiovascular: Reports: no symptoms. Respiratory: Reports: no symptoms. GI: Reports: abdominal pain- resolved xc incisional sx; n&v- resolved Genitourinary: Reports: no symptoms. Musculoskeletal: Reports: no symptoms. Skin: Reports: no symptoms. Neurological/Psychological: Reports: no symptoms. Hematologic/Endocrine: Reports: no symptoms. Immunologic/Allergic: Reports: no symptoms. All Other Systems: Reviewed and Negative Objective Vital Signs and I&Os Vital Signs Date Time Temp Pulse Resp B/P B/P Pulse O2 O2 Flow FiO2 Mean Ox Delivery Rate 08/17 1926 97.4 71 18 156/74 93 Room Air Room Air 08/17 1459 99.0 63 20 180/88 97 08/17 1200 98.5 71 20 142/80 08/17 0636 98.5 71 20 142/80 95 Room Air 08/16 2141 98.7 66 20 128/82 96 08/16 2122 98.8 66 20 138/80 Intake & Output 08/17 1600 08/17 0400 08/16 1600 08/16 0400 08/15 1600 08/15 0400 Intake Total 986 966 7165 1200 2350 2000 Output Total 400 400 600 400 Balance 600 480 226 532 1847 1600 Intake, IV 600 1200 1200 2350 2000 Intake, Oral 480 0 0 Number 1 0 Bowel Movements Output, Urine 400 400 600 400 Patient 256 lb 256 lb 260 lb Weight Weight Bed scale Reported by Patient Measurement Method Physical Exam: Well-developed, well-nourished, pleasant, morbidly obese female, non-toxic appearing, in no apparent distress. Sclera anicteric. Conjunctiva pink. Oropharynx clear. Slightly dry mucous membranes. No oral thrush. No aphthous ulcers. There is no adenopathy, thyromegaly, or JVD. No peripheral stigmata of inflammatory bowel disease or chronic liver disease on exam. No spiders on the anterior chest wall. No CVA tenderness. No spine tenderness. Breast & pelvic exams: API. Lungs: clear to A&P, with slight decreased BS at the bases B/L. No wheezing, rales, or rhonchi. No CWT. Heart exam: regular rate rhythm, S1 and S2, with II/ systolic murmur. Abdominal exam: hypoactive bowel sounds (postop), soft belly, obese, mild epigastric tenderness on deep palpation (near port sites-> dressed), without guarding or rebound. No mass. No splenomegaly. Liver approximately 14 cm by percussion. Negative Jaimes sign. No fluid shift. No pulsatile mass. No epigastric bruit. Digital rectal exam: deferred by patient ("due for colonoscopy"). Extremities: without cyanosis or clubbing. Trace pedal edema B/L. No palpable cords. + DJD. Post R TKR & L- fusion. No palmar erythema. No Dupuytren's contractures. Distal pulses 2+ bilaterally. DTRs 2+ bilaterally. Alert and oriented x 3. Right handed. CN II- XII intact. Motor 5/5 B/L. Motor 5/5 B/L. A detailed exam for peripheral neuropathy was deferred. No tremor. No asterixis. Current Medications: Current Medications Sig/Yoana Start time Last Medication Dose Route Stop Time Status Admin Carvedilol 12.5 MG BID 08/16 1246 AC 08/17 PO 1200 Cefazolin Sodium 2 GM IQ8 08/18 0000 AC N/A 1 UNIT IV 08/18 0829 Dextrose/Lactated 1,000 ML Q10H 08/17 1730 AC 08/17 Ringer's IV 1938 Enoxaparin Sodium 40 MG DAILY 08/15 0900 AC 08/16 SC 1044 Hydromorphone HCl 2 MG Q4P PRN 08/17 1730 AC PO Hydromorphone HCl 4 MG Q4P PRN 08/17 1730 AC PO Hydromorphone HCl 2 MG Q4P PRN 08/14 1300 DC 08/17 PO 0612 Lactated Ringer's 1,000 ML CONTINOUS INFUSION 08/18 1245 CAN IV Lactated Ringer's 1,000 ML .[id number] 08/14 1245 DC 08/16 IV 2122 Levothyroxine Sodium 0.05 MG DAILY AC 08/16 1246 AC 08/17 PO 0612 Morphine Sulfate 2 MG Q3P PRN 08/17 1730 AC IV Ondansetron HCl 4 MG Q6P PRN 08/14 1300 AC IV Results Pertinent Lab Results: Laboratory Tests 08/17 08/17 0826 0826 Chemistry Sodium (137 - 145 mmol/L) 140 Potassium (3.5 - 5.1 mmol/L) 3.6 Chloride (98 - 107 mmol/L) 104 Carbon Dioxide (22 - 30 mmol/L) 26 Anion Gap (5 - 16) 11 BUN (7 - 17 mg/dL) 9 Creatinine (0.5 - 1.0 mg/dL) 0.6 Estimated GFR (>60 ml/min) > 60 BUN/Creatinine Ratio (7 - 25 %) 15.0 Iron (37 - 170 ug/dL) 27 L TIBC (265 - 497 ug/dL) 282 Ferritin (11.1 - 264 ng/mL) 98.4 Total Bilirubin (0.2 - 1.3 mg/dL) 1.0 Direct Bilirubin (< 0.4 mg/dL) 0.5 H AST (14 - 36 U/L) 27 ALT (9 - 52 U/L) 51 Alkaline Phosphatase (<127 U/L) 87 Total Protein (6.3 - 8.2 g/dL) 6.1 L Albumin (3.5 - 5.0 g/dL) 3.0 L Vitamin B12 (239 - 931 pg/mL) 975 H Folate (2.76 - 20.0 ng/mL) > 20.0 H Hematology CBC w Diff NO MAN DIFF REQ WBC (4.8 - 10.8 /CUMM) 7.9 RBC (4.20 - 5.40 /CUMM) 4.06 L Hgb (12.0 - 16.0 G/DL) 11.1 L Hct (37 - 47 %) 33.2 L MCV (81.0 - 99.0 FL) 81.8 MCH (27.0 - 31.0 PG) 27.2 MCHC (33.0 - 37.0 G/DL) 33.3 RDW (11.5 - 14.5 %) 16.4 H Plt Count (130 - 400 /CUMM) 188 MPV (7.4 - 10.4 FL) 9.8 Gran % (42.2 - 75.2 %) 65.1 Lymphocytes % (20.5 - 51.1 %) 19.6 L Monocytes % (1.7 - 9.3 %) 11.1 H Eosinophils % (0 - 5 %) 3.9 Basophils % (0.0 - 2.0 %) 0.3 Absolute Granulocytes (1.4 - 6.5 /CUMM) 5.1 Absolute Lymphocytes (1.2 - 3.4 /CUMM) 1.6 Absolute Monocytes (0.10 - 0.60 /CUMM) 0.9 H Absolute Eosinophils (0.0 - 0.7 /CUMM) 0.3 Absolute Basophils (0.0 - 0.2 /CUMM) 0 Immunology IgG Total Pending IgG1 Pending IgG2 Pending IgG3 Pending IgG4 Pending Anti-Mitochondrial Ab Pending Serology Hepatitis A IgM Ab (NONREACTIVE) NONREACTIVE Hep Bs Antigen (NONREACTIVE) NONREACTIVE Hep B Core IgM Ab Conf (NONREACTIVE) NONREACTIVE Hepatitis C Antibody (NONREACTIVE) NONREACTIVE 08/16 08/16 2947 0846 Hematology CBC w Diff NO MAN DIFF REQ WBC (4.8 - 10.8 /CUMM) 8.6 RBC (4.20 - 5.40 /CUMM) 4.04 L Hgb (12.0 - 16.0 G/DL) 10.7 L Hct (37 - 47 %) 33.1 L MCV (81.0 - 99.0 FL) 82.0 MCH (27.0 - 31.0 PG) 26.4 L MCHC (33.0 - 37.0 G/DL) 32.2 L RDW (11.5 - 14.5 %) 16.9 H Plt Count (130 - 400 /CUMM) 187 MPV (7.4 - 10.4 FL) 10.0 Gran % (42.2 - 75.2 %) 66.8 Lymphocytes % (20.5 - 51.1 %) 19.0 L Monocytes % (1.7 - 9.3 %) 10.6 H Eosinophils % (0 - 5 %) 3.3 Basophils % (0.0 - 2.0 %) 0.3 Absolute Granulocytes (1.4 - 6.5 /CUMM) 5.7 Absolute Lymphocytes (1.2 - 3.4 /CUMM) 1.6 Absolute Monocytes (0.10 - 0.60 /CUMM) 0.9 H Absolute Eosinophils (0.0 - 0.7 /CUMM) 0.3 Absolute Basophils (0.0 - 0.2 /CUMM) 0 Other Body Source Stool Occult Blood Cancelled 08/16 08/15 0740 0728 Chemistry Sodium (137 - 145 mmol/L) 139 139 Potassium (3.5 - 5.1 mmol/L) 3.6 3.6 Chloride (98 - 107 mmol/L) 105 103 Carbon Dioxide (22 - 30 mmol/L) 23 26 Anion Gap (5 - 16) 10 10 BUN (7 - 17 mg/dL) 11 16 Creatinine (0.5 - 1.0 mg/dL) 0.6 0.8 Estimated GFR (>60 ml/min) > 60 > 60 BUN/Creatinine Ratio (7 - 25 %) 18.3 20.0 Iron (37 - 170 ug/dL) 26 L TIBC (265 - 497 ug/dL) 286 Ferritin (11.1 - 264 ng/mL) 64.5 Total Bilirubin (0.2 - 1.3 mg/dL) 1.0 Direct Bilirubin (< 0.4 mg/dL) 0.3 AST (14 - 36 U/L) 37 H 58 H ALT (9 - 52 U/L) 62 H 81 H Alkaline Phosphatase (<127 U/L) 93 89 Lactate Dehydrogenase (313 - 618 U/L) 525 C-Reactive Prot, Quant (<1.0 mg/dL) > 9.0 H Total Protein (6.3 - 8.2 g/dL) 5.9 L Albumin (3.5 - 5.0 g/dL) 2.9 L Coagulation PT (9.4 - 12.5 SEC) 13.2 H INR (0.90 - 1.19) 1.21 H Hematology CBC w Diff NO MAN DIFF REQ WBC (4.8 - 10.8 /CUMM) 8.2 RBC (4.20 - 5.40 /CUMM) 4.00 L Hgb (12.0 - 16.0 G/DL) 10.8 L Hct (37 - 47 %) 32.8 L MCV (81.0 - 99.0 FL) 82.2 MCH (27.0 - 31.0 PG) 27.1 MCHC (33.0 - 37.0 G/DL) 33.0 RDW (11.5 - 14.5 %) 17.5 H Plt Count (130 - 400 /CUMM) 176 MPV (7.4 - 10.4 FL) 9.7 Gran % (42.2 - 75.2 %) 65.6 Lymphocytes % (20.5 - 51.1 %) 20.8 Monocytes % (1.7 - 9.3 %) 9.3 Eosinophils % (0 - 5 %) 4.1 Basophils % (0.0 - 2.0 %) 0.2 Absolute Granulocytes (1.4 - 6.5 /CUMM) 5.4 Absolute Lymphocytes (1.2 - 3.4 /CUMM) 1.7 Absolute Monocytes (0.10 - 0.60 /CUMM) 0.8 H Absolute Eosinophils (0.0 - 0.7 /CUMM) 0.3 Absolute Basophils (0.0 - 0.2 /CUMM) 0 Immunology ROCÍO Titer Anti-Nuclear Antibody (NEG,1:40) POS BY IFA ASSAY Imaging/Other Studies: 08/14/17: EKG- NSR @ 66, borderline LAD, IRBBB, NSST flattening III & F. 08/14/17: CT ABDOMEN AND PELVIS *WITHOUT IV CONTRAST (*per ER, limiting the study)- 1. Inflammatory changes in region of pancreas with early retroperitoneal effusions. Findings consistent with pancreatitis. No loculated fluid. 2. Fine gravel like calculi versus hyperdense sludge in dependent gallbladder. No gallbladder wall thickening or biliary ductal dilatation. Normal CBD & liver. 3. Multilevel DJD & L-fusion. 08/14/17: US-LIMITED (RUQ) ABDOMEN- Technically limited examination. The gallbladder is mildly distended without focal wall thickening, pericholecystic fluid or cholelithiasis. Common duct is at the upper limits of normal in size (CBD 7 mm - normal for pt's age). Normal right kidney. No ascites. 08/15/17: MR ABDOMEN WITHOUT CONTRAST/MRCP- 1. Findings are consistent with pancreatitis with small amount of free fluid seen surrounding the pancreas and extending throughout the upper abdomen as discussed above. No variant pancreatic ductal anatomy is seen. The common bile duct is at the upper limits of normal (0.7 cm) in size and no evidence of choledocholithiasis is seen. 2. Small amount of dependent debris or gravel is seen within the gallbladder, which is mildly hydropic. No gallbladder wall thickening is seen. The pericholecystic fluid is nonspecific and most likely related to the pancreatitis. Clinical correlation requested. 08/16/17: XRY-PORTABLE CHEST XRAY- 1. Chronic elevation of right hemidiaphragm with associated mild subsegmental atelectasis/crowding of bronchovascular markings in the right lung base. 2. No significant pleural effusion seen.
[2017-08-17 22:06] VITALS: BP 124/62
--- NOTE | 2017-08-17 22:13 | PN- General Surgery ---
Subjective Subjective: 67 y/o female S/P lap aurora today. She is doing well without complaints, feels comfortable, taking fluids and passing tushar, No nausea. Objective Vital Signs and I&Os Vital Signs Date Time Temp Pulse Resp B/P B/P Pulse O2 O2 Flow FiO2 Mean Ox Delivery Rate 08/17 2205 98.6 72 18 124/62 94 08/17 2056 72 124/62 08/17 1927 97.4 71 18 156/74 93 Room Air Room Air 08/17 1459 99.0 63 20 180/88 97 08/17 1200 98.5 71 20 142/80 08/17 0636 98.5 71 20 142/80 95 Room Air Intake & Output 08/17 1600 08/17 0800 08/17 0000 08/16 1600 08/16 0800 08/16 0000 Intake Total 600 480 0 1200 1200 Output Total 400 400 Balance 600 480 0 800 800 Intake, IV 600 1200 1200 Intake, Oral 480 0 Number 1 Bowel Movements Output, Urine 400 400 Patient 256 lb Weight Physical Exam: VSS, afebrile chest- CTA symmetric heart- RRR without MRG abdomen - mild distention, bandaids in place, wounds CDI. bilateral lower extremities -ALPs in place, no calf tenderness Assessment/Plan Assessment/Plan S/P Abran clears now, advance as tolarated OOB ambulate DVT proph - HSQ D/C planning for home labs pending in am Core Measures Venous Thromboembolism VTE Risk Factors Acute Medical Illness No Mechanical VTE Prophylaxis d/t N/A MechProphylax Ordered No VTE Pharm Prophylaxis d/t NA PharmProphylax ordered
[2017-08-18 06:40] VITALS: BP 134/70
--- NOTE | 2017-08-18 06:48 | PN- Housestaff ---
Mike Rowland MD,[facility] 08/18/17 0648: Subjective Follow-up For: Pancreatitis Gallstone etiology Subjective: Patient visited today, was sitting at the bedside comfortably in no acute distress, was alert and oriented. No fever or chills, no shortness of breathing, no chest pain, no other events. Underwent laparoscopic cholecystectomy yesterday, pain well controlled. Diet was well tolerated, was gradually increased and patient tolerated. Patient was discharged with instructions to follow in outpatient. Review of Systems Constitutional: Reports: see HPI. Objective Last 24 Hrs of Vital Signs/I&O Vital Signs Date Time Temp Pulse Resp B/P B/P Pulse O2 O2 Flow FiO2 Mean Ox Delivery Rate 08/18 1434 97.5 65 18 130/65 95 Room Air 08/18 0908 97.8 60 20 134/70 08/18 0640 97.8 60 20 134/70 94 Room Air 08/17 2206 98.6 72 18 124/62 94 08/17 2056 72 124/62 08/17 1927 97.4 71 18 156/74 93 Room Air Room Air 08/17 1459 99.0 63 20 180/88 97 Intake & Output 08/18 1600 08/18 0800 08/18 0000 Intake Total 880 500 Output Total 200 Balance -200 880 500 Intake, IV 700 300 Intake, Oral 180 200 Number 0 Bowel Movements Output, Urine 200 Physical Exam General Appearance: Alert, Oriented X3, Cooperative, No Acute Distress Skin Temp/Moisture Exam: Warm/Dry Sepsis Skin Exam (color): Normal for Ethnicity HEENT: Atraumatic, EOMI Cardiovascular: Normal S1, Normal S2 Lungs: Normal Air Movement Abdomen: Soft, No Tenderness, scope site scar, no drain or sign of infection Neurological: Normal Speech, Strength at 5/5 X4 Ext Extremities: +1 edema, UE L>R LE bilateral, baseline. Current Medications: Current Medications Sig/Yoana Start time Last Medication Dose Route Stop Time Status Admin Calcium Carbonate 500 MG ONCE ONE 08/18 1445 AC PO 08/18 1446 Carvedilol 12.5 MG BID 08/16 1246 AC 08/18 PO 0908 Cefazolin Sodium 2 GM IQ8 08/18 0000 DC 08/18 N/A 1 UNIT IV 08/18 0829 0906 Dextrose/Lactated 1,000 ML Q10H 08/17 1730 DC 08/18 Ringer's IV 0412 Enoxaparin Sodium 40 MG DAILY 08/15 0900 AC 08/16 SC 1044 Fentanyl Citrate 200 MCG .STK-MED ONE 08/17 1528 DC IM 08/17 1529 Hydromorphone HCl 2 MG Q4P PRN 08/17 1730 AC 08/17 PO 2056 Hydromorphone HCl 4 MG Q4P PRN 08/17 1730 AC PO Hydromorphone HCl 2 MG Q4P PRN 08/14 1300 DC 08/17 PO 0612 Ketorolac 30 MG .STK-MED ONE 08/17 1713 DC Tromethamine IM 08/17 1714 Lactated Ringer's 1,000 ML CONTINOUS INFUSION 08/18 1245 CAN IV Lactated Ringer's 1,000 ML .[id number] 08/14 1245 DC 08/16 IV 2122 Levothyroxine Sodium 0.05 MG DAILY AC 08/16 1246 AC 08/18 PO 0533 Midazolam HCl 2 MG .STK-MED ONE 08/17 1529 DC IM 08/17 1530 Morphine Sulfate 2 MG Q3P PRN 08/17 1730 AC IV Ondansetron HCl 4 MG Q6P PRN 08/14 1300 AC IV Last 24 Hrs of Lab/Aj Results Last 24 Hrs of Labs/Mics: Laboratory Tests 08/18/17 0815: Anion Gap 11, Estimated GFR > 60, BUN/Creatinine Ratio 13.8, CBC w Diff NO MAN DIFF REQ, RBC 4.22, MCV 82.4, MCH 27.3, MCHC 33.2, RDW 16.7 H, MPV 10.2, Gran % 79.5 H, Lymphocytes % 13.6 L, Monocytes % 6.7, Eosinophils % 0, Basophils % 0.2, Absolute Granulocytes 6.4, Absolute Lymphocytes 1.1 L, Absolute Monocytes 0.5, Absolute Eosinophils 0, Absolute Basophils 0 Assessment/Plan Assessment: 67-year-old lady, 3d history of abdominal pain PMH: hyperlipidemia, HTN, hypothyroid VS, Ph Ex at admission: insignficant Labs at admission: increased ALT and ALT in ~150, Lipase>[id number] Imagings at admission: Abdominal CT: 1. Inflammatory changes in region of pancreas with early retroperitoneal effusions. Findings consistent with pancreatitis. No loculated fluid. 2. Fine gravel like calculi versus hyperdense sludge in dependent gallbladder. No gallbladder wall thickening or biliary ductal dilatation. Abdominal US was done: Technically limited examination. The gallbladder is mildly distended without focal wall thickening, pericholecystic fluid or cholelithiasis. Common duct is at the upper limits of normal in size. Patient was admitted to floor for management of following conditions: Pancreatitis secondary to gallstone: Elevated lipase and CT finding of inflammation surrounding the pancreas was consistent with a diagnosis of acute pancreatitis. The elevated ALT of above 150 could be suggestive of gallstone etiology. MRCP was done: 1. Findings are consistent with pancreatitis with small amount of free fluid seen surrounding the pancreas and extending throughout the upper abdomen as discussed above. No variant pancreatic ductal anatomy is seen. The common bile duct is at the upper limits of normal (0.7 cm) in size and no evidence of choledocholithiasis is seen. 2. Small amount of dependent debris or gravel is seen within the gallbladder, which is mildly hydropic. No gallbladder wall thickening is seen. The pericholecystic fluid is nonspecific and most likely related to the pancreatitis. Clinical correlation requested. GI and Surgery as per the specialists were consulted. It was decided that patient needed to undergo lap cholecyctectom. Patient went under surgey on 08/17/17. Pain was controlled, patient tolerated diet. Patient was stable to be discharged with recommendations below. Anemia, Iron deficiency Iron supplements were administered with recommendations to follow in outpatient with PCP to distinguish the etiology. Chronic medical conditions: we continued home medications Patient was discharged with recommendations below: Please follow with your PCP after discharge. Please also disscuss the next steps for anemia work up. Please follow with your surgeon regarding your surgical procedure in one week. Please follow with your senior support analyst within one week of discharge regarding pancreatitis. Please take your medications as ordered. You can take tynelol for pain. Problem List: 1. Pancreatitis 2. Biliary acute pancreatitis Pain Ratin Pain Location: Abdominal Pain Goal: Pain 4 or less Pain Plan: Continue current plan Tomorrow's Labs & Rationales: None Haile Calzada MD 08/18/17 1154: Attending MD Review Statement Attending Statement Attending MD Statement: examined this patient, discuss w/resident/PA/HUMAN SERVICES CARE SPECIALIST, agreed w/resident/PA/HUMAN SERVICES CARE SPECIALIST, reviewed EMR data (avail), discussed with nursing Attending Assessment/Plan: Patient seen and examined. Resting comfortably without any distress. Denies abdominal pain, does have minimal nausea. Is tolerating oral diet. She is POD#1 - laproscopic cholecystectomy On exam her abdomen is soft and nontender. No guarding or rigidity. 1. POD#1 - Laproscopic Cholecystectomy 2. Biliary pancreatitis - resolving 3. Hypertension Doing lot better today. Plan for discharge later today as she is tolerating clear diet. Will advance to regular diet and see how she tolerates. Will discuss with Gen surgery before discharge and make plans for outpatient follow up
--- NOTE | 2017-08-18 08:49 | PN- General Surgery ---
Subjective Subjective: Pt. denies nausea . He had clears this morning. She reports that oral Dilaudid works well for her.Has not ambulated in [place]illiard yet. She reports her both hands are more swallen since surgery. Objective Vital Signs and I&Os Vital Signs Date Time Temp Pulse Resp B/P B/P Pulse O2 O2 Flow FiO2 Mean Ox Delivery Rate 08/18 0640 97.8 60 20 134/70 94 Room Air 08/17 2206 98.6 72 18 124/62 94 08/17 2056 72 124/62 08/17 1927 97.4 71 18 156/74 93 Room Air Room Air 08/17 1459 99.0 63 20 180/88 97 08/17 1200 98.5 71 20 142/80 Intake & Output 08/18 1600 08/18 0800 08/18 0000 08/17 1600 08/17 0800 08/17 0000 Intake Total 880 500 600 480 Output Total 200 Balance -200 880 500 600 480 Intake, IV 700 300 600 Intake, Oral 180 200 480 Number 0 1 Bowel Movements Output, Urine 200 Alert oriented, appropriate, no distress obese female. Lungs essentailly clear, distant breath sounds. Herat , normal rate Abdomen obese, soft, non distended. Approirpiately tender at incisional sites.Port sites with bandaids are intact, no erythrema or bleeding. Extremities with mild swelling. Assessment/Plan Assessment/Plan 67 y o obese female, s/p lap. [place] for gallstone pancreatitis POD#1 Stable, vital signs WNL Abdominal exam benign, incisions without signs of infection Tolerating clears well, will advance diet to solid food. Has mild peripheral swelling, urinary output aceptable. Will d/c IVF Ambulate in hilliard. Pain well controlled with oral Dilaudid. Stable form surgical standpoint d/c plans as per medical service.
[2017-08-18 09:38] LABS: ABSOLUTE BASOPHIL COUNT 0 /CUMM (0.0-0.2); ABSOLUTE EOSINOPHIL COUNT 0 /CUMM (0.0-0.7); ABSOLUTE GRANULOCYTE CT 6.4 /CUMM (1.4-6.5); ABSOLUTE LYMPH COUNT 1.1 /CUMM (1.2-3.4); ABSOLUTE MONOCYTE COUNT 0.5 /CUMM (0.10-0.60); BASOPHIL % 0.2 % (0.0-2.0); EOSINOPHIL % 0 % (0-5); GRANULOCYTE % 79.5 % (42.2-75.2); HEMATOCRIT 34.8 % (37-47); MEAN CORPUSCULAR HGB 27.3 PG (27.0-31.0); MEAN CORPUSCULAR HGB CONC 33.2 G/DL (33.0-37.0); MEAN CORPUSCULAR VOLUME 82.4 FL (81.0-99.0); MEAN PLATELET VOLUME 10.2 FL (7.4-10.4); PLATELET COUNT 225 /CUMM (130-400); RBC DISTRIBUTION WIDTH 16.7 % (11.5-14.5); RED BLOOD CELL CT 4.22 /CUMM (4.20-5.40)
[2017-08-18 14:34] VITALS: BP 130/65
[2017-08-18] MEDS ORDERED: FERROUS SULFAT325 M3 PO (14:35)
--- NOTE | 2017-08-18 14:38 | Discharge Summary ---
Hospital Course Allergies: Coded Allergies: NO KNOWN ALLERGIES (01/09/12) Discharge Instructions Medications at Discharge Discharge Medications: Continue taking these medications: Potassium Chloride (Potassium Chloride) 20 MEQ TAB.ER.PRT 1 Tablet ORAL TWICE DAILY Qty = 180 Levothyroxine Sodium (Synthroid) 50 MCG TABLET 1 Tablet ORAL DAILY Qty = 90 Carvedilol (Carvedilol) 12.5 MG TABLET 1 Tablet ORAL TWICE DAILY Qty = 180 Atorvastatin Calcium (Atorvastatin Calcium) 10 MG TABLET 0.5 Tablet ORAL DAILY Qty = 90 Aspirin (Ecotrin*) 81 MG TABLET.DR 1 Tablet ORAL DAILY Furosemide (Furosemide) 40 MG TABLET 1 Tablet ORAL TWICE DAILY Qty = 180 Naproxen (Naproxen) 375 MG TABLET 1.5 Tablet ORAL DAILY Qty = 60 Instructions: with food Calcium Carbonate/Vitamin D3 (Calcium 500 + D Tablet) (Unknown Strength) TABLET Unknown Dose ORAL DAILY Ascorbic Acid (Vitamin C) 500 MG TABLET 1 Tablet ORAL DAILY Multiple Vitamin (Multivitamins) 1 EACH TABLET 1 Tablet ORAL DAILY [place]-3S/Dha/Epa/Fish Oil (Fish Oil 1,000 MG Softgel) 300 MG (250 MG-50 MG)-1, 000 MG CAPSULE 1 SGL ORAL DAILY Start taking the following new medications: Ferrous Sulfate (Ferrous Sulfate) 325 MG (65 MG IRON) TABLET 1 Tablet ORAL TWICE DAILY Qty = 60 No Refills Instructions: .
--- NOTE | 2017-08-18 14:41 | PN- General Surgery ---
Surgical Brief Attending Note Brief Attending Note: patient recovering as expected following laparoscopic cholecystectomy. She can be discharged home. Follow up in 2 weeks
== END 2017-08-18 16:43 | DRG 418 ==
LOC: ERH 08:23 → 2NA 12:25 → ERHI 12:25 → CANRESERV 15:18 → ENRESERV 15:18 → ENTRNSPT 15:46 → 2NA 15:47 → EDTRNSPTSTS 15:50 → 2NA 16:04 → CMPTRNSPT 16:40 → 2NA 08-15 08:40 → ENTRNSPT 08-17 18:32 → EDTRNSPTSTS 08-17 18:41 → CMPTRNSPT 08-17 19:07 → ENPENDDIS 08-18 14:38 → ENTRNSPT 08-18 16:34 → EDTRNSPT 08-18 16:37 → EDTRNSPTSTS 08-18 16:37 → 2NA 08-18 16:43 → CMPTRNSPT 08-18 16:52
PROVIDERS: Physician Assistant Medical; Radiology Vascular & Interventional Radiology; Student in an Organized Health Care Education/Training Program
PROC: 0FT44ZZ Resection of Gallbladder, Percutaneous Endoscopic Approach (ICD-10-PCS; principal; 2017-08-17)
DX: K85.10 Biliary acute pancreatitis without necrosis or infection (principal); Z68.43 Body mass index [BMI] 50.0-59.9, adult; K82.1 Hydrops of gallbladder; I10 Essential (primary) hypertension; E03.9 Hypothyroidism, unspecified; E78.5 Hyperlipidemia, unspecified; R74.0 Nonspecific elevation of levels of transaminase and lactic acid dehydrogenase [LDH]; Z79.82 Long term (current) use of aspirin; Z98.1 Arthrodesis status; Z96.651 Presence of right artificial knee joint; Z80.0 Family history of malignant neoplasm of digestive organs; E66.01 Morbid (severe) obesity due to excess calories; D50.9 Iron deficiency anemia, unspecified
CPT/HCPCS: 2NASP; 74181; 83520; 36415; 36592; 71045; 74176; 81001; 82436; 93005; 93010; 96374; 96375; J0690; J1650; J1885; J2405; J3101; J7120

== ENCOUNTER 2017-11-07 11:49 | Inpatient (IN) | payer OTHER, MEDICARE ==
[~2017-11-07] VITALS: Ht 154.9 cm; Wt 117.3 kg
[~2017-11-07 11:49] MED LIST changes: +ASPIRIN EC81 M1 PO; +ATORVASTATIN CA10 M1 PO; +CALCIUM 500 +1 EAC5 PO; +CARVEDILOL12.5 M1 PO; +FERROUS SULFAT325 M3 PO; +FISH OIL 1,0001 EAC5 PO; +FUROSEMIDE40 M1 PO; +MULTIVITAMINS1 EAC9 PO; +NAPROXEN375 M2 PO; +POTASSIUM CHLO20 ME2 PO; +SYNTHROID50 MCG PO; +VITAMIN C500 M8 PO
[2017-11-07 14:00] LABS: ABSOLUTE BASOPHIL COUNT 0 /CUMM (0.0-0.2); ABSOLUTE EOSINOPHIL COUNT 0.2 /CUMM (0.0-0.7); ABSOLUTE GRANULOCYTE CT 7.5 /CUMM (1.4-6.5); ABSOLUTE LYMPH COUNT 1.2 /CUMM (1.2-3.4); ABSOLUTE MONOCYTE COUNT 0.7 /CUMM (0.10-0.60); BASOPHIL % 0.2 % (0.0-2.0); GRANULOCYTE % 77.9 % (42.2-75.2); HEMATOCRIT 38.8 % (37-47); MEAN CORPUSCULAR HGB 28.3 PG (27.0-31.0); MEAN CORPUSCULAR HGB CONC 33.8 G/DL (33.0-37.0); MEAN CORPUSCULAR VOLUME 83.8 FL (81.0-99.0); MEAN PLATELET VOLUME 8.8 FL (7.4-10.4); PLATELET COUNT 206 /CUMM (130-400); RBC DISTRIBUTION WIDTH 15.6 % (11.5-14.5); RED BLOOD CELL CT 4.63 /CUMM (4.20-5.40); WHITE BLOOD CELL COUNT 9.7 /CUMM (4.8-10.8)
--- NOTE | 2017-11-07 16:44 | ED GI/GU/ABDOMINAL COMPLAINT ---
History of Present Illness General Chief Complaint: Low Back Pain/Injury Stated Complaint: BACK PAIN Source: patient, old records Exam Limitations: no limitations Vital Signs & Intake/Output Vital Signs & Intake/Output Vital Signs Date Time Temp Pulse Resp B/P B/P Pulse O2 O2 Flow FiO2 Mean Ox Delivery Rate 11/07 1652 98 Room Air 11/07 1633 81 18 130/62 99 Room Air 11/07 1218 98.3 70 16 136/73 96 Room Air Allergies Coded Allergies: NO KNOWN ALLERGIES (01/09/12) Reconcile Medications Ascorbic Acid (Vitamin C) 500 MG TABLET 1 TAB PO DAILY SUPPLEMENT (Reported) Aspirin (Ecotrin*) 81 MG TABLET.DR 1 TAB PO DAILY HEART/BLOOD (Reported) Atorvastatin Calcium 10 MG TABLET 0.5 TAB PO DAILY CHOLESTEROL (Reported) Calcium Carbonate/Vitamin D3 (Calcium 500 + D Tablet) (Unknown Strength) TABLET (Unknown Dose) PO DAILY SUPPLEMENT (Reported) Carvedilol 12.5 MG TABLET 2 TAB PO BID HEART/BP (Reported) Furosemide 40 MG TABLET 1 TAB PO BID DIURETIC (Reported) NOT GIVEN IN HOSPITAL Levothyroxine Sodium (Synthroid) 50 MCG TABLET 1 TAB PO DAILY THYROID ( Reported) Multiple Vitamin (Multivitamins) 1 EACH TABLET 1 TAB PO DAILY SUPPLEMENT ( Reported) Naproxen 375 MG TABLET 1.5 TAB PO DAILY PAIN/INFLAMMATION (Reported) with food [place]-3S/Dha/Epa/Fish Oil (Fish Oil 1,000 MG Softgel) 300 MG (250 MG-50 MG)-1, 000 MG CAPSULE 1 SGL PO DAILY SUPPLEMENT (Reported) Potassium Chloride 20 MEQ TAB.ER.PRT 1 TAB PO BID SUPPLEMENT (Reported) Valsartan (Diovan) 160 MG TABLET 1 TAB PO DAILY bp (Reported) Triage Note: PT PRESENTS TO THE ER C/O LOWER BACK/FLANK PAIN RADIATING TO THE FRONT. PT STATES ONSET 3 DAYS AGO ON AND OFF. PT STATES THAT IN JULY SHE HAD HER GALLBLADDER REMOVED AND SHE STATES THAT IT FEELS THE SAME.. PT STATES SHE FEELS NAUSEOUS. PT DENIES URI SYMPTOMS.. Triage Nurses Notes Reviewed? yes LMP (ages 10-50): post menopausal ? n Is pt currently ? No Duration: day(s):, continues in ED, waxing and waning Timing: recent history Quality/Severity: aching, moderate, severe Location: epigastric Radiation: back Activities at Onset: rest Prior Abdominal Problems: similar symptoms Past Sexual History: Unobtainable at this time Modifying Factors: Worsens With: palpation. Associated Symptoms: abdominal pain HPI: 3 days prior to admission patient complains of epigastric pain radiating like a belt around to her back similar to previous pancreatitis pain waxing and waning moderate to severe in quality. She denies fever chills nausea vomiting diarrhea chest pain cough shortness breath headache dysuria rash bleeding Past History Travel History Traveled to [place] past 21 day No Medical History Any Pertinent Medical History? see below for history Neurological: NONE EENT: NONE Cardiovascular: hypertension, HIGH CHOLESTEROL Respiratory: NONE Gastrointestinal: NONE Hepatic: NONE Renal: NONE Musculoskeletal: degen joint disease Psychiatric: NONE Endocrine: hypothyroidism, obesity Blood Disorders: NONE Cancer(s): NONE CLINICAL RESEARCH PHYSICIAN/Reproductive: D & C History of MRSA: No History of VRE: No History of CDIFF: No Surgical History Surgical History: knee replacement, spinal fusion, RT TKR L-SPINAL FUSION Psychosocial History Who do you live with Spouse Services at Home None What is your primary language Andorran Tobacco Use: Never used Family History Family History, If Any: FATHER, , Age 94; Cause: Old age. MOTHER, , Age 73; Cause: Colon cancer. Relation not specified for: colon cancer in mother Hx Contributory? No Review of Systems Review of Systems Constitutional: Reports: no symptoms. EENTM: Reports: no symptoms. Respiratory: Reports: no symptoms. Cardiovascular: Reports: no symptoms. GI: Reports: see HPI, abdominal pain. Genitourinary: Reports: no symptoms. Musculoskeletal: Reports: see HPI, back pain. Skin: Reports: no symptoms. Neurological/Psychological: Reports: no symptoms. Hematologic/Endocrine: Reports: no symptoms. Immunologic/Allergic: Reports: no symptoms. All Other Systems: Reviewed and Negative Physical Exam Physical Exam General Appearance: well developed/nourished, alert, awake, anxious, mild distress, obese Head: atraumatic, normal appearance Eyes: Bilateral: normal appearance, PERRL, EOMI, normal inspection. Ears, Nose, Throat, Mouth: hearing grossly normal, moist mucous membrane Neck: normal inspection, supple, full range of motion, normal alignment Respiratory: normal breath sounds, chest non-tender, no respiratory distress, quiet respiration, lungs clear Cardiovascular: regular rate/rhythm, normal peripheral pulses, norml femoral pulses equa Peripheral Pulses: 4+ carotid (R), 4+ carotid (L) Gastrointestinal: normal bowel sounds, soft, no organomegaly, tenderness Back: normal inspection, normal range of motion Extremities: normal range of motion, no ligament instability Neurologic/Psych: no motor/sensory deficits, awake, alert, oriented x 3, normal gait, normal mood/affect, heat set operator II-XII nml as tested Skin: intact, normal color, warm/dry Core Measures ACS in differential dx? No Sepsis Present: No Sepsis Focused Exam Completed? No Progress Differential Diagnosis: gastritis, pancreatitis, PUD/GERD Plan of Care: Orders Procedure Date/time Status Nothing by Mouth 11/08 B Active Patient Data 11/07 174 Active Add-on Test (ER Only) 11/07 174 Active OXYGEN SETUP (GEN) 11/07 172 Active Saline Lock 11/07 172 Active Admit to inpatient 11/07 1729 Active Vital Signs 11/07 1729 Active Activity/Ambulation 11/07 172 Active Code Status 11/07 1729 Active ETHANOL 11/07 1345 Complete URINALYSIS 11/07 1215 Complete LIPASE 11/07 1215 Complete COMPREHENSIVE METABOLIC PANEL 11/07 1215 Complete CBC WITHOUT DIFFERENTIAL 11/07 1215 Complete AMYLASE 11/07 1215 Complete Current Medications Sig/Yoana Start time Last Medication Dose Stop Time Status Admin Sodium Chloride 1,000 ML ONCE ONE 11/07 1730 AC (Normal Saline 0.9%) 11/08 0009 Laboratory Tests 11/07/17 1345: Anion Gap 9, Estimated GFR > 60, BUN/Creatinine Ratio 28.8 H, Glucose 118 H, Calcium 9.5, Total Bilirubin 1.7 H, AST 241 H, ALT 172 H, Alkaline Phosphatase 160 H, Total Protein 6.7, Albumin 3.6, Globulin 3.1, Albumin/ Globulin Ratio 1.2, Amylase 3517 H, Lipase > 67342 H, CBC w Diff NO MAN DIFF REQ, RBC 4.63, MCV 83.8, MCH 28.3, MCHC 33.8, RDW 15.6 H, MPV 8.8, Gran % 77.9 H, Lymphocytes % 12.5 L, Monocytes % 7.4, Eosinophils % 2.0, Basophils % 0.2, Absolute Granulocytes 7.5 H, Absolute Lymphocytes 1.2, Absolute Monocytes 0.7 H, Absolute Eosinophils 0.2, Absolute Basophils 0, Serum Alcohol < 10.0 11/07/17 1229: Urinalysis LIGHT H, Urine Color YEL, Urine Clarity HAZY H, Urine pH 7.0, Ur Specific [place] 1.010, Urine Protein NEG, Urine Ketones NEG, Urine Nitrite NEG, Urine Bilirubin NEG, Urine Urobilinogen 0.2, Ur Leukocyte Esterase TRACE H, Ur Microscopic SEDIMENT EXAMINED, Urine RBC RARE, Urine WBC 1-3 H, Ur Epithelial Cells FEW, Urine Bacteria FEW H, Urine Hemoglobin NEG, Urine Glucose NEG Diagnostic Imaging: Viewed by Me: CT Scan. Discussed w/RAD: CT Scan. Radiology Impression: 1. No CT evidence of acute pancreatitis. Please note that normal CT cannot entirely rule out the possibility of mild pancreatitis. No radiodense stone found. If highly suspected may consider MRCP. 2. Status post cholecystectomy. There is dilatation of the intra and extrahepatic biliary system probably physiologic postcholecystectomy. 3. Degenerative changes of the skeletal system and spine as above. Initial ED EKG: none Departure Departure Time of Disposition: 1726 Disposition: STILL A PATIENT Condition: Stable Clinical Impression Primary Impression: Pancreatitis Referrals: Yumi Morris APRN (PCP/Family) Departure Forms: Customer Survey General Discharge Information Admission Note Spoke With: Quincy Woods MD Documentation of Exam: Documentation of any treatments & extenuating circumstances including Concerns Regarding Discharge (functional status, medication knowledge or non-compliance, living conditions, etc.) that warrant an admission rather than observation: Nothing by mouth IV hydration IV analgesia IV antiemetics GI evaluation medication adjustment continuing care discharge planning
--- NOTE | 2017-11-07 17:06 | CT SCAN REPORT ---
EXAMINATION: CT ABD PELVIS W IV CONTRAST CLINICAL INFORMATION: Reason for Study:
Presumptive Dx: retained stone
Signs Symptoms: s/p ccy with pancreatitis COMPARISON: No prior CT available TECHNIQUE: Multidetector volumetric imaging was performed from the superior aspect of the liver through the pubic symphysis approximately 95 mL of Optiray 320 injected. Sagittal and coronal reformatted images were obtained on the technologist's workstation. DLP: 1275 mGy-cm FINDINGS: LOWER THORAX: There is a platelike atelectasis at RIGHT lower lobe. HEPATOBILIARY: No focal hepatic lesions. No biliary ductal dilatation. GALLBLADDER: Has been removed. Mild dilatation of the biliary system probably physiologic postcholecystectomy. SPLEEN: Spleen is normal in size. PANCREAS: No focal mass or ductal dilatation. STOMACH AND GASTROINTESTINAL TRACT: Stomach is grossly unremarkable. There is no bowel distention or thickening. No CT evidence of appendicitis. ADRENALS: No adrenal nodules. KIDNEYS/URETERS: No hydronephrosis, stones or solid mass lesions. URINARY BLADDER: Unremarkable PELVIC VISCERA: Unremarkable PERITONEUM: No free air or fluid. LYMPH NODES: No lymphadenopathy. VASCULAR:Abdominal aorta normal in size, no aneurysm found. BONES, ABDOMINAL WALL AND SOFT TISSUES: There are postsurgical changes of prior posterior fusion of L4-L5 and S1. Underlying anterior listhesis of L5 on S1. Degenerative disc disease at multiple levels. IMPRESSION: 1. No CT evidence of acute pancreatitis. Please note that normal CT cannot entirely rule out the possibility of mild pancreatitis. No radiodense stone found. If highly suspected may consider MRCP. 2. Status post cholecystectomy. There is dilatation of the intra and extrahepatic biliary system probably physiologic postcholecystectomy. 3. Degenerative changes of the skeletal system and spine as above.
[2017-11-07] MEDS ORDERED: DIOVAN160 MG PO (17:55)
--- NOTE | 2017-11-07 18:34 | History & Physical ---
Iveth Gutierrez 11/07/17 1816: General Information and HPI MD Statement: I have seen and personally examined ADELINE REYES and documented this H&P. The patient is a 67 year old F who presented with a patient stated chief complaint of []. Source of Information: patient, family Exam Limitations: no limitations History of Present Illness: 67 year old female with PMH significant for Gallstone Pancreatitis in July 2017 , Hypothyroidism, HTN, HLD, iron deficiency anemia. Patient underwent uncomplicated cholecystectomy in July and has done well since that time. Of note she did see her PCP and registered radiation therapist who increased her HTN medications: Valsartan and Carvedilol. About three days ago she started to experience mild back pain that seemed similar to the pain when she had pancreatitis. She states these symptoms continued until this morning. She states after breakfast this morning (green tea; crackers with peanut butter) she suddenly had sharp back pain that radiated to her abdomen. She describes the pain as sharp and 10/10. She states this pain was just like when she had pancreatitis and she came to the ED. Associated sx include mild nausea without vomiting. Denies decrease in appetite, chest pain, SOB, diarrhea or floating stools, fever, chills. Denies etoh use since July and is only a social drinker on rare occasions. Last BM was this morning and normal for her. Allergies/Medications Allergies: Coded Allergies: NO KNOWN ALLERGIES (01/09/12) Home Med list Ascorbic Acid (Vitamin C) 500 MG TABLET 1 TAB PO DAILY SUPPLEMENT (Reported) Aspirin (Ecotrin*) 81 MG TABLET.DR 1 TAB PO DAILY HEART/BLOOD (Reported) Atorvastatin Calcium 10 MG TABLET 0.5 TAB PO DAILY CHOLESTEROL (Reported) Calcium Carbonate/Vitamin D3 (Calcium 500 + D Tablet) (Unknown Strength) TABLET (Unknown Dose) PO DAILY SUPPLEMENT (Reported) Carvedilol 12.5 MG TABLET 2 TAB PO BID HEART/BP (Reported) Furosemide 40 MG TABLET 1 TAB PO BID DIURETIC (Reported) NOT GIVEN IN HOSPITAL Levothyroxine Sodium (Synthroid) 50 MCG TABLET 1 TAB PO DAILY THYROID ( Reported) Multiple Vitamin (Multivitamins) 1 EACH TABLET 1 TAB PO DAILY SUPPLEMENT ( Reported) Naproxen 375 MG TABLET 1.5 TAB PO DAILY PAIN/INFLAMMATION (Reported) with food Canute-3S/Dha/Epa/Fish Oil (Fish Oil 1,000 MG Softgel) 300 MG (250 MG-50 MG)-1, 000 MG CAPSULE 1 SGL PO DAILY SUPPLEMENT (Reported) Potassium Chloride 20 MEQ TAB.ER.PRT 1 TAB PO BID SUPPLEMENT (Reported) Valsartan (Diovan) 160 MG TABLET 1 TAB PO DAILY bp (Reported) Compliance With Home Meds: GOOD Past History Travel History Traveled to [place] past 21 day No Medical History Neurological: NONE EENT: NONE Cardiovascular: hypertension, HIGH CHOLESTEROL Respiratory: NONE Gastrointestinal: NONE Hepatic: NONE Renal: NONE Musculoskeletal: degen joint disease Psychiatric: NONE Endocrine: hypothyroidism, obesity Blood Disorders: NONE Cancer(s): NONE FAMILY CONSUMER SCIENCE FCS TEACHER/Reproductive: D & C History of MRSA: No History of VRE: No History of CDIFF: No Surgical History Surgical History: knee replacement, spinal fusion, RT TKR L-SPINAL FUSION Past Family/Social History Family History Relations & Conditions if any FATHER, , Age 94; Cause: Old age. MOTHER, , Age 73; Cause: Colon cancer. Relation not specified for: colon cancer in mother Psychosocial History Where do you live? Home Who Do You Live With? spouse Services at Home: None Primary Language: Kiswahili Smoking Status: Never Smoked ETOH Use: occasional use, last etoh in July; social drinker only Illicit Drug Use: denies illicit drug use Living Will? yes Power of Inspector Finishing/HCP? no Functional Ability ADLs Independent: dressing, eating, toileting, bathing. Ambulation: independent IADLs Independent: shopping, housework, finances, food prep, telephone, transportation , medication admin. Sexual History Past Sexual History Unobtainable at this time Review of Systems Review of Systems Constitutional: Reports: no symptoms. EENTM: Reports: no symptoms. Cardiovascular: Reports: no symptoms. Respiratory: Reports: no symptoms. GI: Reports: no symptoms. Genitourinary: Reports: no symptoms. Musculoskeletal: Reports: no symptoms. Skin: Reports: no symptoms. Neurological/Psychological: Reports: no symptoms. Exam & Diagnostic Data Last 24 Hrs of Vital Signs/I&O Vital Signs Date Time Temp Pulse Resp B/P B/P Pulse O2 O2 Flow FiO2 Mean Ox Delivery Rate 11/07 1652 98 Room Air 11/07 1633 81 18 130/62 99 Room Air 11/07 1218 98.3 70 16 136/73 96 Room Air Intake & Output 11/07 1600 11/07 0800 11/07 0000 Intake Total Output Total Balance Patient 255 lb Weight Weight Reported by Patient Measurement Method Physical Exam General Appearance Alert, Oriented X3, Cooperative, No Acute Distress, obese Skin No Rashes Skin Temp/Moisture Exam: Warm/Dry HEENT Atraumatic, PERRLA Neck Supple Cardiovascular Regular Rate, Normal S1, Normal S2, No Murmurs Lungs Clear to Auscultation Abdomen Normal Bowel Sounds, Soft, tender to palpation epigastric region Neurological Normal Tone, Sensation Intact Extremities No Edema, Normal Pulses Assessment/Plan Assessment: 67 year old female with PMH significant for Gallstone Pancreatitis in July 2017 , Hypothyroidism, HTN, HLD, iron deficiency anemia. Patient underwent uncomplicated cholecystectomy in July and has done well since that time. Work up shows pancreatitis with elevated lipase >10,000 and amylase 3517. Patient to be admitted to general medicine service for the following problem: Problem List: 1. Pancreatitis 2. Transaminitis Admission Data: T98.3 P70 RR16 BP136/73 Sat 96%RA. Amylase 3517; lipase >10,000; AST 241; ALT 172; alk phos 172 CT abd/pelv: IMPRESSION: 1. No CT evidence of acute pancreatitis. Please note that normal CT cannot entirely rule out the possibility of mild pancreatitis. No radiodense stone found. If highly suspected may consider MRCP. 2. Status post cholecystectomy. There is dilatation of the intra and extrahepatic biliary system probably physiologic postcholecystectomy. 3. Degenerative changes of the skeletal system and spine as above. #Pancreatitis-etiology unknown: possible etoh (unlikely if history of consumption is accurate); triglyceridemia (last admission triglycerides 44); medication induced (statins)-unlikely as patient has been on this dose for awhile with no recent changes. -IV hydration 75mL/hr (conservative as patient complained of swelling after last hydration episode for pancreatitis) -IV pain medication: ketorolac and morphine -Zofran for nausea PRN -NPO -GI consult #Transaminitis-likely 2/2 pancreatitis -GI consult -monitor LFTs DVT Prophylaxis: ALPS/lovenox/ambulation As Ranked By This Provider Problem List: 1. Pancreatitis 2. Abdominal pain Core Measures/Misc (01/16) Acute Coronary Syndrome ACS Diagnosis: No Congestive Heart Failure Congestive Heart Failure Diagnosis No Cerebrovascular Accident CVA/TIA Diagnosis: No VTE (View Protocol) VTE Risk Factors Obesity No Mechanical VTE Prophylaxis d/t N/A MechProphylax Ordered No VTE Pharm Prophylaxis d/t NA PharmProphylax ordered Sepsis (View protocol) Sepsis Present: No If YES complete Sepsis Event Note If YES complete Sepsis Event Note Dutch Lind MD 11/07/17 1902: Core Measures/Misc (01/16) Sepsis (View protocol) If YES complete Sepsis Event Note If YES complete Sepsis Event Note Resident Review Statement Resident Statement: examined this patient, discussed with exercise science internship, agreed with exercise science internship, discussed with family, reviewed EMR data (avail), discussed with nursing , discussed with case mgmt, reviewed images, amended to note Other Findings: Ms. Reyes is a 67-year-old female with past medical history of pancreatitis status post cholecystectomy in July, hypertension followed by Dr. Yao, hyperlipidemia, degenerative disc disease, hypothyroidism, and obesity who presents with a 3 day history of back pain, loss of appetite, and pain after eating. The patient notes that her cholecystectomy in July went well and she had no complications. She did have some issues with blood pressure and was seen by Dr. Linares who increased some of her hypertension medications and start her on valsartan. Otherwise, 3 days ago she began experiencing some back pain and lots of pain after eating. She denies any chest pain, shortness of breath, no diarrhea, fever, or chills. She is a never smoker, has not drank any alcohol since July, and no drugs. On presentation, vital signs were T 98.3, HR 70, RR 16, BP 136/73, saturating 96 % on room air. General: Patient appears stated age, alert and orientedx3. HEENT: PERRL. No goiter. No palpable lymph nodes. Cardiovascular: Regular rate and rhythm, no murmurs, rubs, or gallops. Lungs: Clear to auscultation bilaterally. Abdomen: Normal bowel sounds. Mild tenderness to palpation in the right upper quadrant/epigastrium Skin: No rashes. Neuro: CN II-XII intact without any focal deficits. Ext: No edema, pulses normal. Laboratories were significant for normal CBCs, carbon dioxide 31, BUN 23, total bilirubin 1.7, AST 241, ALT 170, alkaline phosphatase 160, amylase 3517, lipase greater than 10,000. Urinalysis showed [address] abdomen/pelvis showed no evidence of pancreatitis but did show some dilatation of the extrahepatic biliary ductal system.. She will be admitted to general medicine and treated for the following problems: 1. Acute pancreatitis 2. Transaminitis #Acute pancreatitis: Etiology of her pancreatitis is unclear. Alcohol is very unlikely and her triglycerides were normal in July. She is status post cholecystectomy but is possible that she has a retained stone. Other possible etiologies include drug-induced, though valsartan is the only new medication and is not typically associated with pancreatitis, or an autoimmune process. -GI consult -N.p.o. -Gentle IV fluid hydration -Pain control -Triglyceride level -IgG4 -Consider abdominal ultrasound -Hold statin #Chronic medical problems -Continue other home medications DVT prophylaxis with enoxaparin N.p.o. Full code Chuck AYERS,[place] 11/07/17 2317: Core Measures/Misc (01/16) Sepsis (View protocol) If YES complete Sepsis Event Note If YES complete Sepsis Event Note Attending MD Review Statement Attending Statement Attending MD Statement: examined this patient, discuss w/resident/PA/NEONATAL CRITICAL CARE NURSE, agreed w/resident/PA/NEONATAL CRITICAL CARE NURSE, reviewed EMR data (avail) Attending Assessment/Plan: 67F PMH hypothyroidism, HTN, gallstone pancreatitis in July 2017 s/p cholecystectomy presents with 3 days of progressive epigastric pain, this morning was 10/10 and radiating to the back. Similar to but less severe than prior episode. No history of trauma, travel, sick contacts. Denies fever, chills, sore throat, chest pain, palpitations, SOB, diarrhea, bloody stool, dysuria. Only new med is Valsartan. No alcohol history, no NSAID use. Labs show lipase >10,000, transaminitis, Tbili 1.7, normal renal function. 1. Acute idiopathic pancreatitis 2. Transaminitis Plan - Admit to general medicine - GI consult - Trend LFTs, if alk phos and bili continue to rise, would pursue MRCP - NPO - IV hydration - Morphine PRN - Continue home meds - DVT PPx Shad Lugo MD 11/08/17 1202: Core Measures/Misc (01/16) Sepsis (View protocol) If YES complete Sepsis Event Note If YES complete Sepsis Event Note
[2017-11-07 22:21] VITALS: BP 140/74
--- NOTE | 2017-11-07 23:18 | Admission Certification ---
Admission Certification Certification Statement - As attending physician, I certify that at the time of - admission, based on clinical presentation, severity of - symptoms, need for further diagnostic testing and - therapeutic interventions, and risk of adverse outcomes - without in-hospital treatment, in my clinical assessment, - this patient requires an acute hospital stay for a minimum - of two nights or longer. I have also considered psychsocial - factors such as support system, advanced age, financial - issues, cognitive issues, and failed out-patient treatments, - past re-admission history, safety of patient, and lack of - compliance as applicable. Specific rationale supporting this admission is: acute pancreatitis possibly gallstone
[2017-11-08 06:32] VITALS: BP 130/78
--- NOTE | 2017-11-08 08:37 | Cons- Gastroenterology ---
General Information and HPI Consulting Request Date of Consult: 11/08/17 Requested By: Shad Lugo MD Reason for Consult: Pancreatitis. Increased LFTs. Abdominal pain. Source of Information: patient Exam Limitations: no limitations History of Present Illness: Ms. Reyes is a 67 year old female with a history of gallstone pancreatitis in July 2017 status post cholecystectomy at that time who presented to [facility] yesterday with complaints of worsening abdominal pain radiating to her back. The patient notes the pain she experienced a similar to the pain she had when she was diagnosed gallstone pancreatitis back in July. The pain was severe, but it was not associated with any significant nausea or vomiting. She also denies having any fevers or chills at home. She has been without any reports of lubna-colored stool or dark urine. In the emergency room she was afebrile and hemodynamically stable she had a contrast enhanced CAT scan that did not show evidence of pancreatitis, but her LFTs were noted to be elevated and she had a lipase greater than 10,000 so she was admitted to medical service overnight and hydrated with lactated Ringer's fluid and kept nothing by mouth. She has been hemodynamically stable and afebrile since admission and she has a marked improvement in her pain since yesterday and she feels she may be ready to eat. Allergies/Medications Allergies: Coded Allergies: NO KNOWN ALLERGIES (01/09/12) Home Med List: Ascorbic Acid (Vitamin C) 500 MG TABLET 1 TAB PO DAILY SUPPLEMENT (Reported) Aspirin (Ecotrin*) 81 MG TABLET.DR 1 TAB PO DAILY HEART/BLOOD (Reported) Atorvastatin Calcium 10 MG TABLET 0.5 TAB PO DAILY CHOLESTEROL (Reported) Calcium Carbonate/Vitamin D3 (Calcium 500 + D Tablet) (Unknown Strength) TABLET (Unknown Dose) PO DAILY SUPPLEMENT (Reported) Carvedilol 12.5 MG TABLET 2 TAB PO BID HEART/BP (Reported) Furosemide 40 MG TABLET 1 TAB PO BID DIURETIC (Reported) NOT GIVEN IN HOSPITAL Levothyroxine Sodium (Synthroid) 50 MCG TABLET 1 TAB PO DAILY THYROID ( Reported) Multiple Vitamin (Multivitamins) 1 EACH TABLET 1 TAB PO DAILY SUPPLEMENT ( Reported) Naproxen 375 MG TABLET 1.5 TAB PO DAILY PAIN/INFLAMMATION (Reported) with food [place]-3S/Dha/Epa/Fish Oil (Fish Oil 1,000 MG Softgel) 300 MG (250 MG-50 MG)-1, 000 MG CAPSULE 1 SGL PO DAILY SUPPLEMENT (Reported) Potassium Chloride 20 MEQ TAB.ER.PRT 1 TAB PO BID SUPPLEMENT (Reported) Valsartan (Diovan) 160 MG TABLET 1 TAB PO DAILY bp (Reported) Current Medications: Current Medications Sig/Yoana Start time Last Medication Dose Route Stop Time Status Admin Ascorbic Acid 500 MG DAILY 11/08 899 AC 11/08 PO 0821 Aspirin Buffered 81 MG DAILY 11/08 899 AC 11/08 PO 0821 Carvedilol 25 MG BID 11/07 2099 AC 11/08 PO 0821 Enoxaparin Sodium 40 MG DAILY 11/08 899 AC 11/08 SC 0821 Fish Oil 1,050 MG DAILY 11/08 899 AC 11/08 PO 0821 Furosemide 40 MG BID 11/07 2099 AC 11/08 PO 0820 Ketorolac 15 MG Q12P PRN 11/07 1900 AC Tromethamine IV Lactated Ringer's 1,000 ML Q13H 11/07 190 AC 11/08 IV 0820 Levothyroxine Sodium 0.05 MG DAILY AC 11/08 699 AC 11/08 PO 0643 Losartan Potassium 50 MG DAILY 11/08 899 AC 11/08 PO 0821 Melatonin 5 MG ONCE ONE 11/08 0015 DC 11/08 PO 11/08 0016 0018 Morphine Sulfate 2 MG Q4P PRN 11/07 190 AC IV Multivitamins 1 TAB DAILY 11/08 899 AC 11/08 Therapeutic PO 0821 Ondansetron HCl 4 MG Q6PRN PRN 11/07 1900 AC IV Potassium Chloride 20 MEQ BID 11/07 2099 AC 11/08 PO 0821 Sodium Chloride 1,000 ML ONCE ONE 11/07 1730 DC 11/07 IV 11/08 0009 1817 Past History Travel History Traveled to [place] past 21 day No Medical History Blood Transfusion Hx: Yes Neurological: NONE EENT: NONE Cardiovascular: hypertension, HIGH CHOLESTEROL Respiratory: NONE Gastrointestinal: NONE Hepatic: NONE Renal: NONE Musculoskeletal: degen joint disease Psychiatric: NONE Endocrine: hypothyroidism, obesity Blood Disorders: NONE Cancer(s): NONE 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 MOTHER, , Age 73; Cause: Colon cancer. Relation not specified for: colon cancer in mother Psychosocial History Where Do You Live? Home Who Do You Live With? spouse Services at Home: None Primary Language: Prydein[place] Smoking Status: Never Smoked ETOH Use: occasional use, last etoh in July; social drinker only Illicit Drug Use: denies illicit drug use Living Will? yes Power of Assistant Director Of Residence Life/HCP? no Functional Ability ADLs Independent: dressing, eating, toileting, bathing. Ambulation: independent IADLs Independent: shopping, housework, finances, food prep, telephone, transportation , medication admin. Review of Systems Review of Systems Constitutional: Denies: chills, fever, malaise, weakness, unexplained weight loss. EENTM: Denies: no symptoms. Cardiovascular: Denies: no symptoms. Respiratory: Denies: no symptoms. GI: Reports: see HPI. Genitourinary: Denies: no symptoms. Musculoskeletal: Denies: no symptoms. Skin: Denies: no symptoms. Neurological/Psychological: Denies: no symptoms. Hematologic/Endocrine: Denies: no symptoms. Immunologic/Allergic: Denies: no symptoms. All Other Systems: Reviewed and Negative Exam & Diagnostic Data Vital Signs and I&O Vital Signs Date Time Temp Pulse Resp B/P B/P Pulse O2 O2 Flow FiO2 Mean Ox Delivery Rate 11/08 0821 66 130/78 11/08 0821 66 130/78 11/08 0632 97.7 66 16 130/78 96 Room Air 11/07 2221 98.2 64 17 140/74 97 Room Air 11/07 2133 140/80 11/07 1853 98.2 80 18 140/80 97 Room Air 11/07 1652 98 Room Air 11/07 1633 81 18 130/62 99 Room Air 11/07 1218 98.3 70 16 136/73 96 Room Air Intake & Output 11/08 1600 11/08 0400 11/07 1600 11/07 0400 11/06 1600 11/06 0400 Intake Total 600 0 Output Total Balance 600 0 Intake, IV 600 0 Patient 259 lb 255 lb Weight Weight Bed scale Reported by Patient Measurement Method Physical Exam General Appearance: well developed/nourished, no apparent distress, alert, comfortable, obese Head: atraumatic, normal appearance Eyes: Bilateral: normal appearance. Ears, Nose, Throat: normal pharynx, normal ENT inspection, hearing grossly normal Neck: normal inspection, supple, full range of motion Respiratory: normal breath sounds, chest non-tender, no respiratory distress, quiet respiration Cardiovascular: regular rate/rhythm Gastrointestinal: normal bowel sounds, soft, non-tender, no organomegaly Rectal: deferred Back: normal inspection, normal range of motion Extremities: normal inspection, no edema Neurologic/Psych: no motor/sensory deficits, awake, alert, oriented x 3 Skin: intact, normal color, warm/dry Results Pertinent Lab Results: Laboratory Tests 11/08 11/07 0649 1345 Chemistry Sodium (137 - 145 mmol/L) 143 Potassium (3.5 - 5.1 mmol/L) 4.7 Chloride (98 - 107 mmol/L) 103 Carbon Dioxide (22 - 30 mmol/L) 31 H Anion Gap (5 - 16) 9 BUN (7 - 17 mg/dL) 23 H Creatinine (0.5 - 1.0 mg/dL) 0.8 Estimated GFR (>60 ml/min) > 60 BUN/Creatinine Ratio (7 - 25 %) 28.8 H Glucose (65 - 99 mg/dL) 118 H Calcium (8.4 - 10.2 mg/dL) 9.5 Total Bilirubin (0.2 - 1.3 mg/dL) 1.0 1.7 H Direct Bilirubin (< 0.4 mg/dL) 0.2 AST (14 - 36 U/L) 161 H 241 H ALT (9 - 52 U/L) 175 H 172 H Alkaline Phosphatase (<127 U/L) 169 H 160 H Total Protein (6.3 - 8.2 g/dL) 6.2 L 6.7 Albumin (3.5 - 5.0 g/dL) 3.2 L 3.6 Globulin (1.9 - 4.2 gm/dL) 3.1 Albumin/Globulin Ratio (1.1 - 2.2 %) 1.2 Triglycerides (<150 mg/dL) 36 Amylase (30 - 110 U/L) 3517 H Lipase (23 - 300 U/L) > 32685 H Hematology CBC w Diff NO MAN DIFF REQ WBC (4.8 - 10.8 /CUMM) 9.7 RBC (4.20 - 5.40 /CUMM) 4.63 Hgb (12.0 - 16.0 G/DL) 13.1 Hct (37 - 47 %) 38.8 MCV (81.0 - 99.0 FL) 83.8 MCH (27.0 - 31.0 PG) 28.3 MCHC (33.0 - 37.0 G/DL) 33.8 RDW (11.5 - 14.5 %) 15.6 H Plt Count (130 - 400 /CUMM) 206 MPV (7.4 - 10.4 FL) 8.8 Gran % (42.2 - 75.2 %) 77.9 H Lymphocytes % (20.5 - 51.1 %) 12.5 L Monocytes % (1.7 - 9.3 %) 7.4 Eosinophils % (0 - 5 %) 2.0 Basophils % (0.0 - 2.0 %) 0.2 Absolute Granulocytes (1.4 - 6.5 /CUMM) 7.5 H Absolute Lymphocytes (1.2 - 3.4 /CUMM) 1.2 Absolute Monocytes (0.10 - 0.60 /CUMM) 0.7 H Absolute Eosinophils (0.0 - 0.7 /CUMM) 0.2 Absolute Basophils (0.0 - 0.2 /CUMM) 0 Immunology IgG Total Pending IgG1 Pending IgG2 Pending IgG3 Pending IgG4 Pending Toxicology Serum Alcohol (<10 MG/DL) < 10.0 11/07 1229 Urines Urinalysis LIGHT H Urine Color (YEL,AMB,STR) YEL Urine Clarity (CLEAR) HAZY H Urine pH (5.0 - 8.0) 7.0 Ur Specific [place] (1.001 - 1.035) 1.010 Urine Protein (NEG,<30 MG/DL) NEG Urine Ketones (NEG) NEG Urine Nitrite (NEG) NEG Urine Bilirubin (NEG) NEG Urine Urobilinogen (0.1 - 1.0 EU/dl) 0.2 Ur Leukocyte Esterase (NEG) TRACE H Ur Microscopic SEDIMENT EXAMINED Urine RBC (0 - 5 /HPF) RARE Urine WBC (0 - 2 /HPF) 1-3 H Ur Epithelial Cells (NONE,FEW) FEW Urine Bacteria (NEG/NONE) FEW H Urine Hemoglobin (NEG) NEG Urine Glucose (N MG/DL) NEG Imaging/Other Studies: SERVICE DATE: 11/07/17 EXAM TYPE: CAT - CT ABD & PELVIS W IV CONTRAST EXAMINATION: CT ABD PELVIS W IV CONTRAST CLINICAL INFORMATION: Reason for Study:
Presumptive Dx: retained stone
Signs Symptoms: s/p ccy with pancreatitis COMPARISON: No prior CT available TECHNIQUE: Multidetector volumetric imaging was performed from the superior aspect of the liver through the pubic symphysis approximately 95 mL of Optiray 320 injected. Sagittal and coronal reformatted images were obtained on the technologist's workstation. DLP: 1275 mGy-cm FINDINGS: LOWER THORAX: There is a platelike atelectasis at RIGHT lower lobe. HEPATOBILIARY: No focal hepatic lesions. No biliary ductal dilatation. GALLBLADDER: Has been removed. Mild dilatation of the biliary system probably physiologic postcholecystectomy. SPLEEN: Spleen is normal in size. PANCREAS: No focal mass or ductal dilatation. STOMACH AND GASTROINTESTINAL TRACT: Stomach is grossly unremarkable. There is no bowel distention or thickening. No CT evidence of appendicitis. ADRENALS: No adrenal nodules. KIDNEYS/URETERS: No hydronephrosis, stones or solid mass lesions. URINARY BLADDER: Unremarkable PELVIC VISCERA: Unremarkable PERITONEUM: No free air or fluid. LYMPH NODES: No lymphadenopathy. VASCULAR:Abdominal aorta normal in size, no aneurysm found. BONES, ABDOMINAL WALL AND SOFT TISSUES: There are postsurgical changes of prior posterior fusion of L4-L5 and S1. Underlying anterior listhesis of L5 on S1. Degenerative disc disease at multiple levels. IMPRESSION: 1. No CT evidence of acute pancreatitis. Please note that normal CT cannot entirely rule out the possibility of mild pancreatitis. No radiodense stone found. If highly suspected may consider MRCP. 2. Status post cholecystectomy. There is dilatation of the intra and extrahepatic biliary system probably physiologic postcholecystectomy. 3. Degenerative changes of the skeletal system and spine as above. Assessment/Plan Assessment/Recommendations: Assessment: Ms. Reyes is a 67-year-old female who presents with recurrent pancreatitis associated with increased LFTs presumably secondary to a passed retained gallstone. Her CAT scan did not show any changes of pancreatitis, but her symptoms and a markedly elevated lipase of over 10,000 support the diagnosis. While her transaminases are elevated her bilirubin is normal so I am hopeful that she passed a stone and then an ERCP will not be necessary. It would be reasonable to check an MRCP to look for any residual choledocholithiasis and if this is positive for that would then arrange for an ERCP to remove the stones, but as she is without cholangitis this is not urgent. It is also possible that she may actually have sphincter of OD dysfunction considering the increased LFTs so if her MRCP is negative for choledocholithiasis and she has recurrent attacks it may then be reasonable to refer her for sphincter of Oddi manometry, but I feel that is necessary at this time. She is currently doing well from a pancreatitis standpoint with resolution of her pain and I am hopeful that her diet will be able to be advanced and she can be discharged home shortly. Recommendations: 1. Advance diet as tolerated. 2. Follow daily LFTs. 3. Notify GI for signs of cholangitis and would monitor her off of antibiotics for now. 4. Check an MRCP to evaluate for any residual choledocholithiasis and if this is positive for choledocholithiasis will then arrange for an ERCP for which she may require transfer as ERCP services are not available in the hospital this week. 5. Analgesia as needed. 6. Follow-up IgG4 level. I will continue to follow this patient and make further recognitions based on her clinical course and the results of her repeat blood work and MRCP. Problem List: 1. Elevated LFTs 2. Biliary acute pancreatitis 3. Pancreatitis 4. Abdominal pain Copies To: Yumi Morris APRN Consult Acknowledgment - Thank you for your consult request.
--- NOTE | 2017-11-08 09:09 | PN- Housestaff ---
Subjective Follow-up For: pancreatitis Complaints: no complaints Subjective: Patient states she did not rest as well as she expected last night, however her pain symptoms have completely resolved. She did not require any pain medication overnight. She remains NPO with IVF. Denies fever, chills, n/v/d, chest pain, SOB, abdominal pain, back pain. Review of Systems Constitutional: Reports: see HPI. Objective Last 24 Hrs of Vital Signs/I&O Vital Signs Date Time Temp Pulse Resp B/P B/P Pulse O2 O2 Flow FiO2 Mean Ox Delivery Rate 11/08 0821 66 130/78 11/08 0821 66 130/78 11/08 0632 97.7 66 16 130/78 96 Room Air 11/07 2221 98.2 64 17 140/74 97 Room Air 11/07 2133 140/80 11/07 1853 98.2 80 18 140/80 97 Room Air 11/07 1652 98 Room Air 11/07 1633 81 18 130/62 99 Room Air 11/07 1218 98.3 70 16 136/73 96 Room Air Intake & Output 11/08 1600 11/08 0800 11/08 0000 Intake Total 600 0 Output Total Balance 600 0 Intake, IV 600 0 Patient 259 lb Weight Weight Bed scale Measurement Method Physical Exam General Appearance: Alert, Oriented X3, Cooperative, No Acute Distress Skin: No Rashes Skin Temp/Moisture Exam: Warm/Dry HEENT: Atraumatic, PERRLA Neck: Supple Cardiovascular: Regular Rate, systolic murmur Lungs: Clear to Auscultation Abdomen: Normal Bowel Sounds, Soft, No Tenderness Neurological: Normal Tone, Sensation Intact Extremities: No Edema, Normal Pulses Assessment/Plan Assessment: 67 year old female with PMH significant for Gallstone Pancreatitis in July 2017 , Hypothyroidism, HTN, HLD, iron deficiency anemia. Patient underwent uncomplicated cholecystectomy in July and has done well since that time. Work up shows pancreatitis with elevated lipase >10,000 and amylase 3517. Patient to be admitted to general medicine service for the following problem: Problem List: 1. Pancreatitis 2. Transaminitis #Pancreatitis-etiology unknown: possible etoh (unlikely if history of consumption is accurate); triglyceridemia (last admission triglycerides 44); medication induced (statins)-unlikely as patient has been on this dose for awhile with no recent changes. -IV hydration 75mL/hr (conservative as patient complained of swelling after last hydration episode for pancreatitis) -IV pain medication: ketorolac and morphine -Zofran for nausea PRN -NPO -GI consult: awaiting recs #Transaminitis-likely 2/2 pancreatitis -GI following -monitor LFTs DVT Prophylaxis: ALPS/lovenox/ambulation Problem List: 1. Pancreatitis Pain Ratin Pain Location: none Pain Goal: Remain pain free Pain Plan: see a/p Tomorrow's Labs & Rationales: LFT, lipase/amylase
[2017-11-08 14:52] VITALS: BP 110/70
[2017-11-08 19:48] VITALS: BP 120/80
[2017-11-09 06:37] VITALS: BP 150/70
--- NOTE | 2017-11-09 07:39 | PN- Housestaff ---
See Addendum Subjective Follow-up For: acute pancreatitis Complaints: no complaints Subjective: Patient states she had no pain overnight, but didn't rest well. She states she normally sleeps on her side or stomach and is unable to as she is concerned about the IV in her arm. She states she has occasional 'sensation of back and abdominal pain' but this is brief. She did not require pain medication. She did have two epidsodes of diarrhea yesterday and once this morning. She tolerated jello last night with no sx. Denies fever, chills, n/v/d, chest pain, SOB. Review of Systems Constitutional: Reports: see HPI. Objective Last 24 Hrs of Vital Signs/I&O Vital Signs Date Time Temp Pulse Resp B/P B/P Pulse O2 O2 Flow FiO2 Mean Ox Delivery Rate 11/09 0637 97.7 58 18 150/70 95 / 1951 59 120/80 11/08 1948 98.4 59 18 120/80 96 Room Air 11/08 1452 98.2 93 18 110/70 92 Room Air Intake & Output 11/09 1600 11/09 0800 11/09 0000 Intake Total 600 1080 Output Total Balance 600 1080 Intake, IV 600 600 Intake, Oral 480 Number 1 Bowel Movements Physical Exam General Appearance: Alert, Oriented X3, Cooperative, No Acute Distress Skin: No Rashes Skin Temp/Moisture Exam: Warm/Dry HEENT: Atraumatic, PERRLA Neck: Supple Cardiovascular: Regular Rate, systolic murmur Lungs: Clear to Auscultation, Normal Air Movement Abdomen: Normal Bowel Sounds, Soft, No Tenderness Extremities: No Edema, Normal Pulses Assessment/Plan Assessment: 67 year old female with PMH significant for Gallstone Pancreatitis in July 2017 , Hypothyroidism, HTN, HLD, iron deficiency anemia. Patient underwent uncomplicated cholecystectomy in July and has done well since that time. Work up shows pancreatitis with elevated lipase >10,000 and amylase 3517. Patient to be admitted to general medicine service for the following problem: Problem List: 1. Pancreatitis 2. Transaminitis #Pancreatitis-etiology unknown: possible etoh (unlikely if history of consumption is accurate); triglyceridemia (last admission triglycerides 44); medication induced (statins)-unlikely as patient has been on this dose for awhile with no recent changes; retained stone in bile duct (T. Bili 1.0 and alk phos elevated) -IV hydration 75mL/hr (conservative as patient complained of swelling after last hydration episode for pancreatitis) -IV pain medication: ketorolac and morphine -Zofran for nausea PRN -NPO: will advance diet and see how she tolerates after MRCP today -GI consult: awaiting recs; will conduct MRCP today for further biliary evaluation #Transaminitis-likely 2/2 pancreatitis -GI following -monitor LFTs #Diarrhea -will obtain C-diff DVT Prophylaxis: ALPS/lovenox/ambulation Problem List: 1. Pancreatitis 2. Abdominal pain Pain Ratin Pain Location: none Pain Goal: Remain pain free Pain Plan: see a/p Tomorrow's Labs & Rationales: bep, LFTs
--- NOTE | 2017-11-09 10:37 | PN- Gastroenterology ---
Assessment/Plan GI Assessment/Recommendations: Assessment: Ms. Reyes is a 67-year-old female did with recurrent gallstone pancreatitis presumed secondary to retained gallstone from when her gallbladder was removed this past July. She is currently clinically improved and has a mild improvement in her transaminases. Her bilirubin has not significantly increased and she has remained afebrile and without signs of cholangitis. She tolerated a liquid diet last night hopeful that after the MRCP is performed for diet can be advanced and she can be discharged home shortly. Of note as she does not have cholangitis if a retained stone is seen in her common bile duct on the MRCP it would not be unreasonable to discharge her home to address this further as an outpatient considering ERCP services are not available Jesús this week if she is tolerating a diet without pain. Recommendations: 1. Follow daily LFTs. 2. Follow-up MRCP. 3. Advance diet as tolerated after MRCP. 4. Administer analgesia as needed. 5. Notify GI for signs of cholangitis. 6. Continue maintenance IV fluids for now and if she continues to tolerated diet would then discontinue them. I will continue to follow this patient and make further recognitions based on her clinical course and results of further imaging. Problem List: 1. Biliary acute pancreatitis 2. Pancreatitis 3. Elevated LFTs Subjective Subjective: Patient is feeling well this morning. She tolerated a liquid diet last night without any sniffing and pain or vomiting. She is awaiting her MRCP. Objective Vital Signs and I&Os Vital Signs Date Time Temp Pulse Resp B/P B/P Pulse O2 O2 Flow FiO2 Mean Ox Delivery Rate 11/09 0818 58 150/70 11/09 0817 58 150/70 11/09 0637 97.7 58 18 150/70 95 11/08 1951 59 120/80 11/08 1948 98.4 59 18 120/80 96 Room Air 11/08 1452 98.2 93 18 110/70 92 Room Air Intake & Output 11/09 1600 11/09 0400 11/08 1600 11/08 0400 11/07 1600 11/07 0400 Intake Total 600 1080 1200 0 Output Total Balance 600 1080 1200 0 Intake, IV 004 224 3233 0 Intake, Oral 480 Number 1 3 Bowel Movements Patient 259 lb 255 lb Weight Weight Bed scale Reported by Patient Measurement Method Physical Exam General Appearance: well developed/nourished, no apparent distress, alert, comfortable, obese Head: atraumatic, normal appearance Neck: normal inspection, supple Respiratory: normal breath sounds, chest non-tender, no respiratory distress Cardiovascular: regular rate/rhythm Abdomen: normal bowel sounds, soft, non-tender, no organomegaly Extremities: no edema Current Medications: Current Medications Sig/Yoana Start time Last Medication Dose Route Stop Time Status Admin Ascorbic Acid 500 MG DAILY 11/08 899 AC 11/09 PO 08 Aspirin Buffered 81 MG DAILY 11/08 899 AC 11/09 PO 0818 Carvedilol 25 MG BID 11/07 2099 AC 11/09 PO 0818 Enoxaparin Sodium 40 MG DAILY 11/08 899 AC 11/09 SC 0819 Fish Oil 1,050 MG DAILY 11/08 899 AC 11/09 PO 0819 Furosemide 40 MG BID 11/07 2099 AC 11/09 PO 0818 Ketorolac 15 MG Q12P PRN 11/07 190 AC Tromethamine IV Lactated Ringer's 1,000 ML Q13H 11/07 1899 AC 11/08 IV 2205 Levothyroxine Sodium 0.05 MG DAILY AC 11/08 699 AC 11/09 PO 0631 Losartan Potassium 50 MG DAILY 11/08 899 AC 11/09 PO 0817 Melatonin 5 MG ONCE ONE 11/08 2199 DC 11/08 PO 11/08 2200 220 Morphine Sulfate 2 MG Q4P PRN 11/07 1899 AC IV Multivitamins 1 TAB DAILY 11/08 899 AC 11/09 Therapeutic PO 0818 Ondansetron HCl 4 MG Q6PRN PRN 11/07 1899 AC IV Potassium Chloride 20 MEQ BID 11/07 2099 AC 11/09 PO 0818 Results Pertinent Lab Results: Laboratory Tests 11/09 11/08 11/07 0627 0649 1345 Chemistry Sodium (137 - 145 mmol/L) 143 Potassium (3.5 - 5.1 mmol/L) 4.7 Chloride (98 - 107 mmol/L) 103 Carbon Dioxide (22 - 30 mmol/L) 31 H Anion Gap (5 - 16) 9 BUN (7 - 17 mg/dL) 23 H Creatinine (0.5 - 1.0 mg/dL) 0.8 Estimated GFR (>60 ml/min) > 60 BUN/Creatinine Ratio (7 - 25 %) 28.8 H Glucose (65 - 99 mg/dL) 118 H Calcium (8.4 - 10.2 mg/dL) 9.5 Total Bilirubin (0.2 - 1.3 mg/dL) 1.1 1.0 1.7 H Direct Bilirubin (< 0.4 mg/dL) 0.3 0.2 AST (14 - 36 U/L) 102 H 161 H 241 H ALT (9 - 52 U/L) 147 H 175 H 172 H Alkaline Phosphatase (<127 U/L) 177 H 169 H 160 H Total Protein (6.3 - 8.2 g/dL) 7.2 6.2 L 6.7 Albumin (3.5 - 5.0 g/dL) 3.7 3.2 L 3.6 Globulin (1.9 - 4.2 gm/dL) 3.1 Albumin/Globulin Ratio (1.1 - 2.2 %) 1.2 Triglycerides (<150 mg/dL) 36 Amylase (30 - 110 U/L) 3517 H Lipase (23 - 300 U/L) > 66337 H Hematology CBC w Diff NO MAN DIFF REQ WBC (4.8 - 10.8 /CUMM) 9.7 RBC (4.20 - 5.40 /CUMM) 4.63 Hgb (12.0 - 16.0 G/DL) 13.1 Hct (37 - 47 %) 38.8 MCV (81.0 - 99.0 FL) 83.8 MCH (27.0 - 31.0 PG) 28.3 MCHC (33.0 - 37.0 G/DL) 33.8 RDW (11.5 - 14.5 %) 15.6 H Plt Count (130 - 400 /CUMM) 206 MPV (7.4 - 10.4 FL) 8.8 Gran % (42.2 - 75.2 %) 77.9 H Lymphocytes % (20.5 - 51.1 %) 12.5 L Monocytes % (1.7 - 9.3 %) 7.4 Eosinophils % (0 - 5 %) 2.0 Basophils % (0.0 - 2.0 %) 0.2 Absolute Granulocytes (1.4 - 6.5 /CUMM) 7.5 H Absolute Lymphocytes (1.2 - 3.4 /CUMM) 1.2 Absolute Monocytes (0.10 - 0.60 /CUMM) 0.7 H Absolute Eosinophils (0.0 - 0.7 /CUMM) 0.2 Absolute Basophils (0.0 - 0.2 /CUMM) 0 Immunology IgG Total Pending IgG1 Pending IgG2 Pending IgG3 Pending IgG4 Pending Toxicology Serum Alcohol (<10 MG/DL) < 10.0 11/07 1229 Urines Urinalysis LIGHT H Urine Color (YEL,AMB,STR) YEL Urine Clarity (CLEAR) HAZY H Urine pH (5.0 - 8.0) 7.0 Ur Specific [place] (1.001 - 1.035) 1.010 Urine Protein (NEG,<30 MG/DL) NEG Urine Ketones (NEG) NEG Urine Nitrite (NEG) NEG Urine Bilirubin (NEG) NEG Urine Urobilinogen (0.1 - 1.0 EU/dl) 0.2 Ur Leukocyte Esterase (NEG) TRACE H Ur Microscopic SEDIMENT EXAMINED Urine RBC (0 - 5 /HPF) RARE Urine WBC (0 - 2 /HPF) 1-3 H Ur Epithelial Cells (NONE,FEW) FEW Urine Bacteria (NEG/NONE) FEW H Urine Hemoglobin (NEG) NEG Urine Glucose (N MG/DL) NEG
--- NOTE | 2017-11-09 13:48 | Discharge Summary ---
Visit Information Visit Dates Admission Date: 11/07/17 Discharge Date: 11/10/17 Hospital Course Course Attending Physician: Shad Lugo MD Primary Care Physician: Yumi Morris APRN Hospital Course: Mrs Reyes is a 67 year old female with PMH significant for Gallstone Pancreatitis in July 2017, Hypothyroidism, HTN, HLD, iron deficiency anemia. Patient underwent uncomplicated cholecystectomy in July and has done well since that time. Work up shows pancreatitis with elevated lipase >10,000 and amylase 3517. She was admitted to general medicine service for the following problems: Problem List: 1. Pancreatitis 2. Transaminitis Admission Data: T98.3 P70 RR16 BP136/73 Sat 96%RA. Amylase 3517; lipase >10,000; AST 241; ALT 172; alk phos 172 CT abd/pelv: IMPRESSION: 1. No CT evidence of acute pancreatitis. Please note that normal CT cannot entirely rule out the possibility of mild pancreatitis. No radiodense stone found. If highly suspected may consider MRCP. 2. Status post cholecystectomy. There is dilatation of the intra and extrahepatic biliary system probably physiologic postcholecystectomy. 3. Degenerative changes of the skeletal system and spine as above. #Pancreatitis-etiology unknown: etoh is unlikely if history of consumption is accurate; most likely etiology is a retained stone in bile duct (T. Bili 1.0 and alk phos elevated) that was subsequently passed and therefore not seen on MRCP. This was treated with the following interventions: -Patient was initally made NPO with IVF hydration. Her diet was subsequently advanced and she eventually tolerated a full diet and remained symptom free. -GI consult: MRCP was negative. Recommend follow up with Dr. Blas. -MRCP: 1. Resolution of previously seen ascites in the abdomen. 2. Patient is now status post cholecystectomy with mild central intrahepatic ductal prominence again noted. The common bile duct is borderline normal in size. No evidence of choledocholithiasis is seen. -Will send patient home with copies of imaging for outpatient follow up #Transaminitis-likely 2/2 pancreatitis -downtrended except slight up trend with Alk Phosphatase. Patient to see her GI Dr. Blas as an outpatient #Diarrhea -Obtained C-diff for toxin which was negative. Discharging patient as she feels well. On November 10, 2017 Mrs. Reyes was tolerating a regular diet without symptoms and her vital signs were stable. She has been instructed to follow up with Dr. Blas her GI specialist as an outpatient. Allergies: Coded Allergies: NO KNOWN ALLERGIES (01/09/12) Disposition Summary Disposition Principal Diagnosis: acute pancreatitis Additional Diagnosis: diarrhea Discharge Disposition: home or self care Discharge Instructions General Discharge Information Code Status: Full Code Patient's Diet: regular Patient's Activity: as tolerated Follow-Up Instructions/Appts: follow up with Dr. Blas your GI specialist and your PCP Medications at Discharge Discharge Medications: Continue taking these medications: Potassium Chloride (Potassium Chloride) 20 MEQ TAB.ER.PRT 1 Tablet ORAL TWICE DAILY Qty = 180 Comments: Last Taken:11/10/17 Time:8:12A.M Levothyroxine Sodium (Synthroid) 50 MCG TABLET 1 Tablet ORAL DAILY Qty = 90 Comments: Last Taken: 11/10/17 Time: 6:39A.M Carvedilol (Carvedilol) 12.5 MG TABLET 2 Tablet ORAL TWICE DAILY Qty = 180 Comments: Last Taken: 11/10/17 Time: 8:12A.M Atorvastatin Calcium (Atorvastatin Calcium) 10 MG TABLET 0.5 Tablet ORAL DAILY Qty = 90 Comments: NOT GIVEN THIS ADMISSION Aspirin (Ecotrin*) 81 MG TABLET. 1 Tablet ORAL DAILY Comments: Last Taken:11/10/17 Time:8:12A.M Furosemide (Furosemide) 40 MG TABLET 1 Tablet ORAL TWICE DAILY Qty = 180 Instructions: NOT GIVEN IN HOSPITAL Comments: Last Taken:11/10/17 Time:8:12A.M Naproxen (Naproxen) 375 MG TABLET 1.5 Tablet ORAL DAILY Qty = 60 Instructions: with food Comments: NOT GIVEN IN HOSPITAL Calcium Carbonate/Vitamin D3 (Calcium 500 + D Tablet) (Unknown Strength) TABLET Unknown Dose ORAL DAILY Comments: NOT GIVEN IN HOSPITAL Ascorbic Acid (Vitamin C) 500 MG TABLET 1 Tablet ORAL DAILY Comments: Last Taken:11/10/17 Time:8:11A.M Multiple Vitamin (Multivitamins) 1 EACH TABLET 1 Tablet ORAL DAILY Comments: Last Taken:11/10/17 Time:8:12A.M [place]-3S/Dha/Epa/Fish Oil (Fish Oil 1,000 MG Softgel) 300 MG (250 MG-50 MG)-1, 000 MG CAPSULE 1 SGL ORAL DAILY Comments: Last Taken:11/10/17 Time:8:12A.M Valsartan (Diovan) 160 MG TABLET 1 Tablet ORAL DAILY Qty = 30 Comments: Last Taken:11/10/17 Time:8:12A.M Copies To: Wan AYERS,Jasmeet Connell; Yumi Morris APRN; Bruno Mai MD Attending Review Statement Documenting Attending: Shad Lugo MD Other Findings: The patient was seen and agree with summary of care and plan for follow-up.
[2017-11-09 14:21] VITALS: BP 126/80
--- NOTE | 2017-11-09 20:08 | MRI REPORT ---
EXAMINATION: MR ABDOMEN WITHOUT CONTRAST/MRCP CLINICAL INFORMATION: Back pain and abdominal pain. Status post cholecystectomy with pancreatitis. Evaluate for retained stone. COMPARISON: MRI scan of the abdomen dated 08/15/2017. CT scan of the abdomen and pelvis dated 11/07/2017. TECHNIQUE: An MRI scan of the abdomen was performed using multiple imaging sequences and imaging planes. As per the MRCP protocol, heavily T2-weighted 3-D high-resolution MRCP sequences were obtained in the coronal plane along with thin and thick slab coronal images and coronal MIP reconstructions obtained on the technologist workstation under concurrent physician supervision. FINDINGS: LIVER: Asymmetric elevation of the right hemidiaphragm is again seen, unchanged. The liver is normal in size and signal. No hepatic steatosis is seen. No focal cystic or solid mass is present. The previously seen ascites has resolved. GALLBLADDER/BILIARY TREE: The gallbladder is surgically absent with the cystic duct remnant appearing unremarkable. No focal fluid collection is seen in the gallbladder fossa. Mild intrahepatic ductal prominence is seen. Common bile duct is at the upper limits of normal, measuring 0.7 cm in maximal diameter. No abnormal filling defect is seen within the common bile duct to suspect choledocholithiasis. Evaluation of the central intrahepatic bile ducts is slightly limited due to dephasing artifact from clips. PANCREAS: The pancreas is normal in appearance. No ductal dilatation, mass or surrounding stranding is seen. SPLEEN: Normal size and appearance. Splenic vein patent. ADRENAL GLANDS AND KIDNEYS: Adrenal glands normal. Kidneys bilaterally symmetric in size and function. No focal mass, hydronephrosis, or perinephric stranding. BOWEL LOOPS: Grossly within normal limits. LYMPHOVASCULAR STRUCTURES: Abdominal aorta normal in caliber. No periaortic collections. No abdominal adenopathy or free fluid collection. BONES: Within normal limits to the extent included. IMPRESSION: 1. Resolution of previously seen ascites in the abdomen. 2. Patient is now status post cholecystectomy with mild central intrahepatic ductal prominence again noted. The common bile duct is borderline normal in size. No evidence of choledocholithiasis is seen.
[2017-11-09 21:32] VITALS: BP 142/68
[2017-11-10 06:28] VITALS: BP 132/80
[2017-11-10 08:12] VITALS: BP 132/80
--- NOTE | 2017-11-10 08:20 | Patient Discharge Instructions ---
Discharge Instructions General Discharge Information You were seen/treated for: Pancreatitis Watch for these problems: Fever, chest pain, shortness of breath Special Instructions: Please take all medications as directed. Please follow-up with primary care and gastroenterology Diet Continue normal diet: Yes Recommended Diet: Low Fat Activity Full Activity/No Limits: Yes Acute Coronary Syndrome Inclusion Criteria At DC or during hospital stay patient has or had the following: ACS DIAGNOSIS No Discharge Core Measures Meds if any: Prescribed or Continued at Discharge Meds if any: NOT Prescribed or Continued at Discharge Congestive Heart Failure Inclusion Criteria At DC or during hospital stay patient has or had the following: CHF DIAGNOSIS No Discharge Core Measures Meds if any: Prescribed or Continued at Discharge Meds if any: NOT Prescribed or Continued at Discharge Cerebrovascular accident Inclusion Criteria At DC or during hospital stay patient has or had the following: CVA/TIA Diagnosis No Discharge Core Measures Meds if any: Prescribed or Continued at Discharge Meds if any: NOT Prescribed or Continued at Discharge Venous thromboembolism Inclusion Criteria VTE Diagnosis No VTE Type NONE VTE Confirmed by (Test) NONE Discharge Core Measures - Per Current guidelines, there needs to be overlap - treatment for the first 5 days of Warfarin therapy. - If discharged on Warfarin prior to 5 days of - overlap therapy, the patient will need to be - assessed for post discharge needs including - *Post discharge parental anticoagulation - *Warfarin and/or parental anticoagulation education - *Follow up date to check INR post discharge At least 5 days overlap therapy as Inpatient No Meds if any: Prescribed or Continued at Discharge Note: Overlap Therapy is Warfarin and Anticoagulant Meds if any: NOT Prescribed or Continued at Discharge
--- NOTE | 2017-11-10 08:38 | PN- Housestaff ---
See Addendum Subjective Follow-up For: acute pancreatitis Complaints: no complaints Subjective: Patient continues to feel well. She did not have any episodes of diarrhea overnight. She is pain free and would like to go home. She is tolerating a regular diet since last night. Denies fever, chills, n/v/d, chest pain, SOB, abdominal pain, back pain. Review of Systems Constitutional: Reports: see HPI. Objective Last 24 Hrs of Vital Signs/I&O Vital Signs Date Time Temp Pulse Resp B/P B/P Pulse O2 O2 Flow FiO2 Mean Ox Delivery Rate 11/10 08 97.5 62 16 132/80 11/10 0812 97.5 62 16 132/80 11/10 0628 97.5 62 16 132/80 98 Room Air 11/09 2204 64 142/68 07 2132 98.5 64 18 142/68 96 Room Air 11/09 1421 96.8 58 18 126/80 96 Intake & Output 11/10 1600 11/10 0800 11/10 0000 Intake Total 600 Output Total Balance 600 Intake, IV 600 Physical Exam General Appearance: Alert, Oriented X3, Cooperative, No Acute Distress Skin: No Rashes Skin Temp/Moisture Exam: Warm/Dry HEENT: Atraumatic, PERRLA Neck: Supple Cardiovascular: Regular Rate, systolic murmur Lungs: Clear to Auscultation Abdomen: Normal Bowel Sounds, Soft, No Tenderness Neurological: Normal Tone, Sensation Intact Extremities: No Edema, Normal Pulses Assessment/Plan Assessment: 67 year old female with PMH significant for Gallstone Pancreatitis in July 2017 , Hypothyroidism, HTN, HLD, iron deficiency anemia. Patient underwent uncomplicated cholecystectomy in July and has done well since that time. Work up shows pancreatitis with elevated lipase >10,000 and amylase 3517. Patient to be admitted to general medicine service for the following problem: Problem List: 1. Pancreatitis 2. Transaminitis #Pancreatitis-etiology unknown: possible etoh (unlikely if history of consumption is accurate); triglyceridemia (last admission triglycerides 44); medication induced (statins)-unlikely as patient has been on this dose for awhile with no recent changes; retained stone in bile duct (T. Bili 1.0 and alk phos elevated) -Not requiring pain medication -Zofran for nausea PRN -Regular diet: tolerating well -GI consult: MRCP negative. Patient may have passed a retained stone as the etiology of this pancreatitis episode. Patient to follow up with her GI doctor: Dr. Blas outpatient for possible sphincter of oddi evaluation if episodes of pancreatitis recur. #Transaminitis-likely 2/2 pancreatitis -Down trending AST and ALT -Uptrending Alk Phos: labs can lag behind per Dr. Mai; patient will follow up outpatient with Dr. Blas #Diarrhea-resolved -[id number] (unlikely to be positive given symtoms resolution) DVT Prophylaxis: ALPS/lovenox/ambulation Dispo: likely dc home self care today Problem List: 1. Pancreatitis Pain Ratin Pain Location: none Pain Goal: Remain pain free Pain Plan: see a/p Tomorrow's Labs & Rationales: none
== END 2017-11-10 12:36 | DRG 439 ==
LOC: ERH 11:49 → ERHI 17:29 → 2NB 17:29 → ENRESERV 18:20 → ENTRNSPT 20:04 → EDTRNSPTSTS 20:08 → 2NB 20:15 → CMPTRNSPT 20:47 → 2NB 11-08 07:53 → ENPENDDIS 11-10 11:58 → 2NB 11-10 12:36
PROVIDERS: Physician Assistant
DX: K85.00 Idiopathic acute pancreatitis without necrosis or infection (principal); Z68.42 Body mass index [BMI] 45.0-49.9, adult; I10 Essential (primary) hypertension; E66.9 Obesity, unspecified
CPT/HCPCS: 2NBP; 74181; 36592; 74177; 81001; G0480; J1650; J7120